=== PATIENT | male | born 2000 | race Caucasian/White ===

== ENCOUNTER 2021-05-16 19:07 | Emergency (ER) | payer OTHER, MEDICAID, SELFPAY ==
[2021-05-16 19:08] VITALS: BP 127/65; PULSE 81; RESP 16; TEMP 36.6; O2SAT 97; BMI 20.7
[2021-05-16 19:10] VITALS: BP 127/65; PULSE 81; RESP 16; TEMP 36.6; O2SAT 97
[2021-05-16] MEDS: 0.9% Normal Saline 1,000 ML 1000 ML IV (19:27)
[2021-05-16 19:33] LABS: Absolute Lymphocyte Count 1.93 X10^3/uL (0.83-4.51); Basophil# 0.03 X10^3/uL; Basophil% 0.4 % (0-1); Eosinophil# 0.07 X10^3/uL; Eosinophils% 0.9 % (0-5); Hematocrit 43.1 % (40-54); Hemoglobin 14.8 g/dL (13.0-16.5); Lymphocyte # 1.93 X10^3/ul (0.83-4.51); Lymphocyte % 25.7 % (19-41); Mean Corp Hgb Conc 34.3 g/dL (32-36); Mean Corpuscular Hgb 29.9 pg (27.0-32.0); Mean Corpuscular Volume 87.1 fL (80-94); Mean Platelet Vol. 9.7 fl (6.2-12.0); Monocyte# 0.44 X10^3/uL; Monocyte% 5.9 % (0-10); NRBC Flagged by Analyzer 0 % (0-5); Neutrophil # 5.02 X10^3/uL (2.7-7.7); Neutrophil % 66.8 % (47-70); Platelet Count 292 K/mm3 (150-450); RBC Distribution Width CV 12.2 % (11.6-14.6); RBC Distribution Width SD 38.5 fl (35.1-43.9); Red Blood Count 4.95 M/mm3 (4.6-6.2); White Blood Count 7.5 K/mm3 (4.4-11.0)
[2021-05-16 19:57] LABS: AST(SGOT) 17 U/L (15-37); Alanine Aminotransfer ALT/SGPT 22 U/L (16-61); Albumin, Serum 4.4 g/dL (3.2-5.0); Alkaline Phosphatase 64 U/L (45-117); Anion Gap 3 (5-15); BUN 10 mg/dL (7-18); BUN/Creat Ratio 10.2 RATIO (10-20); Bilirubin, Direct 0.11 mg/dL (0.00-0.30); Calcium,Total 9.6 mg/dL (8.5-10.1); Chloride 106 mmol/L (98-107); Creatinine, Serum 0.98 mg/dL (0.70-1.30); EST Glomerular Filtration Rate 103 mL/min (>60); Est Glom Filt Rate - Afr Amer 125 mL/min (>60); Estimated Creatinine Clearance 112.79 ml/min; Globulin 3.4 g/dL (2.2-4.2); Glucose 100 mg/dL (74-106); Potassium 4.2 mmol/L (3.5-5.1); Protein, Total 7.8 g/dL (6.4-8.2); Sodium Level 138 mmol/L (136-145)
--- NOTE | 2021-05-16 20:00 | CT_ITS ---
STUDY: CT Abdomen And Pelvis W/O Contrast Injection 05/16/2021 8:33 PM REASON FOR EXAM: Male, 20 years old. Abdominal pain especially after eating. Lost 20lbs in 2 weeks.PAIN back pain, weight loss, hematuria TECHNIQUE: Transaxial images were obtained without oral contrast, and without intravenous contrast. Individualized dose optimization techniques were used for this CT. COMPARISON: None. FINDINGS: The visualized lung bases are unremarkable. The visualized portions of the heart are within normal limits. Normal liver. Normal gallbladder and extrahepatic biliary system. Normal spleen. Normal pancreas. Normal bilateral adrenal glands. No acute findings of the right kidney. No acute findings of the left kidney. Normal visualized stomach. Normal small intestine. Stool throughout the colon. There is non-visualization of the appendix. There are no acute findings of the abdominal aorta. Normal inferior vena cava. Subcentimeter mesenteric lymph nodes. Normal urinary bladder. Normal abdominal wall. Normal osseous structures. IMPRESSION: (NOT LISTED IN ORDER OF SIGNIFICANCE) There are no acute findings. Other findings as above. Electronically Signed: Aries Batres MD at 20:35 EST Reading Location ID and State: [facility] / [place] , Service support , CT/Abdomen/Pelvis without Cont
[2021-05-16 20:07] LABS: Bacteria 0 SEEN /hpf (None Seen); Mucous, Urine 0 SEEN /hpf (<or=2+); Red Blood Cells-Urine 0 SEEN /hpf (0-5); White Blood Cells 0 SEEN /hpf (0-5)
[2021-05-16 20:08] LABS: Color, Urine Yellow (Yellow); Glucose, Dipstick Normal (Normal); Ketone-Dipstick Negative (Negative); Leukocyte Esterase-Dipstick Negative /ul (Negative); Nitrite-Dipstick Negative (Negative); Occult Blood-Urine Negative /ul (Negative); Protein-Dipstick Negative (Negative); Urine Bilirubin Dipstick Negative (Negative); Urine Clarity Clear (Clear); Urine Urobilinogen Normal (Normal)
[2021-05-16 20:18] LABS: Squamous Epithelial Cells - UA 0-5 SEEN /hpf (0-5)
--- NOTE | 2021-05-16 20:18 | EDS_ITS ---
HPI History of Present Illness Chief Complaint: General Illness Detail of Chief Complaint: Weight loss, night sweats, hematuria Informant: patient Onset/Context/Timing Onset: Weeks Current Severity: Mild Maximum Severity: Moderate Narrative Narrative: Patient presents secondary to a 22 pound weight loss in the last 2 to 3 weeks. Has been waking up every night with night sweats. He had 3 separate episodes of noticing blood in his urine. He does complain of back pain. He denies fever or chills. No URI symptoms. No vomiting or diarrhea. He does report increased thirst and increased urination. He does have a family history of diabetes. [facility] Medical History no medical history no medical history Allergy/AdvReac Type Severity Reaction Status Date / Time No Known Allergies Allergy Verified 05/16/21 19:10 Social History Smoking Status: Current every day smoker tobacco type: cigarettes ROS ROS ED Constitutional Constitutional ED: Reports sweats; Denies chills or fever(s) Eyes Eyes: Denies change in vision ENT ENT ED: Denies rhinorrhea or sore throat Cardiovascular Cardiovascular: Denies chest pain or palpitations Respiratory/Chest Respiratory/Chest: Denies cough or dyspnea Gastrointestinal Gastrointestinal: Denies abdominal pain, diarrhea, nausea or vomiting Genitourinary Genitourinary ED: Reports hematuria and urinary frequency; Denies dysuria Musculoskeletal Musculoskeletal: Reports back pain Integumentary Denies rash Neurologic Neurologic: Denies headache(s) or weakness Allergic/Immunologic Allergic/Immunologic ED: Denies urticaria EXAM Physical Exam Const Vital Signs: 05/16/21 19:08 05/16/21 19:10 Temperature 98 F 98 F Temperature Source Temporal Temporal Pulse Rate 81 81 Respiratory Rate 16 16 Blood Pressure 127/65 H 127/65 H Blood Pressure Mean 85 85 Pulse Ox 97 97 Oxygen Delivery Method Room Air Room Air Positive well nourished and well developed General Appearance ED: well developed HEENT Reports dry mucous membranes Mouth ED: Yes dry mucous membranes Mouth: dry mucous membranes Eyes PERRL and EOMs intact bilaterally Neck supple Chest Wall inspection of chest normal and palpation of chest normal Resp normal respiratory effort and clear to auscultation bilaterally Cardio regular rate and regular rhythm GI normal to inspection, nondistended, normoactive bowel sounds and non-tender Palpation: soft Extremity normal to inspection Neuro oriented x3 Sensorium / Orientation: alert Psych mental status grossly normal Skin no rashes or lesions noted MDM MDM MDM Narrative Medical decision making narrative: Lab work and urinalysis ordered. Patient given a liter of IV fluid. Lab Data Attestation: I reviewed the patient's lab results. Labs: Laboratory Results - last 24 hr 05/16/21 05/16/21 05/16/21 19:25 19:25 20:00 WBC 7.5 RBC 4.95 Hgb 14.8 Hct 43.1 MCV 87.1 MCH 29.9 MCHC 34.3 RDW Std Deviation 38.5 RDW Coeff of Magnus 12.2 Plt Count 292 MPV 9.7 Immature Gran % (Auto) 0.300 Neut % (Auto) 66.8 Lymph % (Auto) 25.7 [place] % (Auto) 5.9 Eos % (Auto) 0.9 Baso % (Auto) 0.4 Absolute Neuts (auto) 5.0 Absolute Lymphs (auto) 1.93 Nucleated RBC % 0 Sodium 138 Potassium 4.2 Chloride 106 Carbon Dioxide 29.0 Anion Gap 3 L BUN 10 Creatinine 0.98 Estim Creat Clear Calc 112.79 Est GFR (MDRD) Af Amer 125 Est GFR (MDRD) Non-Af 103 BUN/Creatinine Ratio 10.2 Glucose 100 Calcium 9.6 Total Bilirubin 0.40 Direct Bilirubin 0.11 AST 17 ALT 22 Alkaline Phosphatase 64 Total Protein 7.8 Albumin 4.4 Globulin 3.4 Urine Color Yellow Urine Clarity Clear Urine pH 7.0 Ur Specific [place] 1.010 Urine Protein Negative Urine Glucose (UA) Normal Urine Ketones Negative Urine Occult Blood Negative Urine Nitrite Negative Urine Bilirubin Negative Urine Urobilinogen Normal Ur Leukocyte Esterase Negative Urine RBC 0 SEEN Urine WBC 0 SEEN Ur Squamous Epith Cells 0-5 SEEN Urine Bacteria 0 SEEN Urine Mucus 0 SEEN Radiography Diagnostic Testing: Clinical Impression(s) from Imaging Studies Abdomen/Pelvis CT 05/16/21 20:00 ADDENDUM: 05/16/21 2100 IMPRESSION: (NOT LISTED IN ORDER OF SIGNIFICANCE) There are no acute findings. Treatment and Re-Evaluation Comments:: Lab work is unremarkable with normal glucose at 100. At that time CT flank obtained as patient was having intermittent hematuria, back pain, weight loss. CT scan returns with no acute findings. Test results discussed with patient and family at bedside. Although advised him I do not see any acute abnormalities at this time I do recommend very close follow-up for further evaluation. Patient referred to Dr. Husain, next on the no doc list. He is also given the pamphlet provider directory. Return instructions provided. Addendum: After the patient was discharged I noticed that there was an addendum on the CT reading that was not added until the patient had been discharged. They now, that the patient has large right scrotal hydrocele and moderate left scrotal hydrocele. Testicular ultrasound is recommended. Charge nurse will call patient and ask him to return tomorrow for further imaging and evaluation of this. Discharge Plan Triage Chief Complaint: General Illness ED Provider: Jaimie Melendez Dx/Rx/DC Orders Clinical Impression: Abnormal weight loss, Hematuria Instructions: ED Hematuria Stand Alone Forms: ED Work / School Excuse Primary Care Provider: Care Physician,No Primary Referrals: Jenny Husain MD [STAFF PHYSICIAN] - As soon as possible Care Physician,No Primary [Primary Care Provider] - Activity Restrictions/Additional Instructions: As discussed, your screening labs tonight did not reveal any acute abnormalities . Your urine test does not reveal blood or infection. CT scan of your abdomen and pelvis shows no acute abnormalities. Please follow-up closely with a primary care physician for further testing and evaluation. Disposition Disposition: Home, Self Care Discharge Date/Time: 05/16/21 20:55
--- NOTE | 2021-05-16 21:51 | ED.RN ---
Per Dr Melendez patients CT scan was amended after patient was discharged, Dr Melendez wants patient to come back to ER tomorrow for testicular ultrasound. Patient was contacted via phone and updsated and is agreeable to come back tomorrow for ultrasound.
== END 2021-05-16 20:55 | disposition home or self-care (01) ==
PROVIDERS: Emergency Provider Emergency Medicine; Visit Provider Emergency Medicine
DX: N43.3 Hydrocele, unspecified (principal); R31.9 Hematuria, unspecified; F17.210 Nicotine dependence, cigarettes, uncomplicated; R63.4 Abnormal weight loss; M54.9 Dorsalgia, unspecified
CPT/HCPCS: 74176; 80048; 80076; 81001; 85025; 96360; 99284; J7030; A4216

== ENCOUNTER 2021-05-17 09:39 | Emergency (ER) | payer OTHER, MEDICAID, SELFPAY ==
[2021-05-17 09:40] VITALS: BP 134/66; PULSE 98; RESP 17; TEMP 36.7; O2SAT 99; BMI 21.7
--- NOTE | 2021-05-17 09:53 | US_ITS ---
STUDY: SCROTUM ULTRASOUND REASON FOR EXAM: Male, 20 years old. Swelling, weight loss TECHNIQUE: Ultrasound evaluation of the scrotum was performed with color Doppler and static renae-scale imaging. COMPARISON: None. FINDINGS: RIGHT TESTICLE INTRATESTICULAR: There is a normal size of the right testicle. The right testicle measures 4.4 cm x 3.3 cm x 2.7 cm. There is a homogenous echotexture. There is normal arterial and normal venous vascularity. There is no demonstrated right testicular mass or cyst. EXTRATESTICULAR: The epididymis is not visualized. There is a large hydrocele. There is no demonstrated varicocele. There is no demonstrated extratesticular mass or cyst. LEFT TESTICLE INTRATESTICULAR: There is a normal size of the left testicle. The left testicle measures 3.7 cm x 3.4 cm x 1.9 cm. There is a homogenous echotexture. There is normal arterial and normal venous vascularity. There is no demonstrated left testicular mass or cyst. EXTRATESTICULAR: The epididymis is normal in size. The epididymis head measures 1.1 cm x 1 cm x 0.6 cm. There is normal vascularity of the epididymis. There is no demonstrated epididymal cystic structure. There is no demonstrated hydrocele. There is no demonstrated varicocele. There is no demonstrated extratesticular mass or cyst. US/Testicular with Arterial Flow IMPRESSION: Large right hydrocele. Electronically Signed: Mariano Gardiner MD at 10:54 EST ,
--- NOTE | 2021-05-17 10:01 | EDS_ITS ---
HPI History of Present Illness Chief Complaint: General Illness Informant: patient Narrative Narrative: Patient was called back in today to have ultrasound of the testicle. He came in yesterday due to loss of about 20 pounds in 2 weeks. He states he is eating and drinking normally. If he eats a large amount or eats sugar he gets mildly nauseated but is never vomited. However he states his total volume of food is the same. He does urinate a greater volume in the longer than he used to. He is also had blood in his urine 3 times. But he has no dysuria. Yesterday, CT scan was done along with a very comprehensive laboratory work-up. After the patient left there was a an addendum made regarding a large right scrotal hydrocele and moderate left. He was called back to have an ultrasound. I talked to the patient about this. He states that since he was about 15 years old his left testicle was very small and his right one is huge. However, this has not changed recently. The size is unchanged. He has never had this evaluated. PFSH PFSH Medical History no medical history Allergy/AdvReac Type Severity Reaction Status Date / Time No Known Allergies Allergy Verified 05/17/21 09:40 Social History Smoking Status: Current every day smoker tobacco type: cigarettes ROS ROS ED Constitutional Constitutional ED: Reports weight loss; Denies chills or fever(s) Eyes Eyes: Denies blurry vision ENT ENT ED: Denies rhinorrhea or sore throat Cardiovascular Cardiovascular: Denies chest pain Respiratory/Chest Respiratory/Chest: Denies dyspnea Gastrointestinal Gastrointestinal: Reports nausea; Denies abdominal pain or vomiting Genitourinary Genitourinary ED: Reports hematuria and other Details: See history of present illness. ; Denies dysuria or urinary frequency Musculoskeletal Musculoskeletal: Denies back pain Integumentary Denies rash Neurologic Neurologic: Denies headache(s) Endocrine Endocrinology: Reports polyuria; Denies polydipsia Allergic/Immunologic Allergic/Immunologic ED: Denies urticaria EXAM Physical Exam Const Vital Signs: 05/17/21 09:40 Temperature 98.1 F Temperature Source Oral Pulse Rate 98 Respiratory Rate 17 Blood Pressure 134/66 H Blood Pressure Mean 88 Pulse Ox 99 Oxygen Delivery Method Room Air Positive well nourished and well developed; Negative for unkempt Constitutional Narrative: In addition to the low exam, I do not feel any lymph nodes in the axilla, groin, behind knees or clavicular areas. General Appearance ED: well developed and NAD; Negative for unkempt, cyanotic or diaphoretic HEENT Reports moist mucous membranes Eyes General Eye ED: Negative for pale conjunctiva or scleral icterus Neck no JVD Chest Wall inspection of chest normal Resp normal respiratory effort and clear to auscultation bilaterally Effort and Inspection: Negative for pain with movement Auscultation: Negative for rales, rhonchi or wheezes Cardio regular rate, regular rhythm and no murmurs GI normal to inspection, nondistended, normoactive bowel sounds, non-tender, non- distended and no masses Palpation: soft; Negative for guarding or rebound tenderness present Narrative: I feel no inguinal lymphadenopathy. However, the patient's right testicle is quite large. It is approximately 10 cm in length versus about 4 cm on the left. Volume jasso there is a very significant difference. However there is no marked tenderness. Back/Spine no CVA tenderness Extremity normal to inspection General Extremety ED: Negative for edema or tenderness General Extremity: Negative for edema Neuro Sensorium / Orientation: alert Psych mental status grossly normal Appearance: Negative for unkempt Skin no rashes or lesions noted MDM MDM MDM Narrative Medical decision making narrative: I reviewed work-up from yesterday. We added a ultrasound today. There is a hydrocele but no sign of mass or cancer. I think since he is likely had this hydrocele for 5 years he may want resolution and follow-up with urology as appropriate. I again stressed the importance of following up with primary physician that he was just referred to yesterday. Because we still do not have an explanation for the symptoms that he has been having. Today he actually feels pretty good and feels better than yesterday. I think follow-up as an outpatient is appropriate. Radiography Diagnostic Testing: Clinical Impression(s) from Imaging Studies Testicular Ultrasound 05/17/21 09:53 IMPRESSION: Large right hydrocele. Electronically Signed: Mariano Gardiner MD at 10:54 EST , Discharge Plan Triage Chief Complaint: General Illness ED Provider: Mauricio Cash Dx/Rx/DC Orders Clinical Impression: Hydrocele, right, Abnormal weight loss, Hematuria Instructions: ED Hydrocele, Type Not Specified Primary Care Provider: Care Physician,No Primary Referrals: Darion Mukherjee MD [STAFF PHYSICIAN] - As soon as possible Care Physician,No Primary [Primary Care Provider] - Disposition Disposition: Home, Self Care
== END 2021-05-17 11:46 | disposition home or self-care (01) ==
PROVIDERS: Emergency Provider Emergency Medicine; Visit Provider Emergency Medicine
DX: N43.3 Hydrocele, unspecified (principal); R31.9 Hematuria, unspecified; F17.210 Nicotine dependence, cigarettes, uncomplicated; R63.4 Abnormal weight loss
CPT/HCPCS: 76870; 93976; 99282

== ENCOUNTER 2021-08-03 01:24 | Emergency (ER) | payer OTHER, MEDICAID, SELFPAY ==
[2021-08-03 01:26] VITALS: BP 137/60; PULSE 81; RESP 16; TEMP 37.2; O2SAT 98; BMI 21.9
--- NOTE | 2021-08-03 01:36 | RAD_ITS ---
STUDY: X-RAY - LUMBAR SPINE REASON FOR EXAM: Male, 21 years old. pain TECHNIQUE: view(s) of the lumbar spine were obtained. COMPARISON: None FINDINGS: Normal lumbar lordosis. There is no substantial scoliosis. There is a normal alignment of the vertebrae. Normal vertebral bodies and endplates. Normal disc space heights. The soft tissue structures are unremarkable. RAD/Lumbar Spine 2 or 3 Views IMPRESSION: Normal x-ray examination of the lumbar spine. Electronically Signed: Gianni Nur MD at 2:13 EDT ,
--- NOTE | 2021-08-03 01:38 | ED.VIS.BACK ---
HPI History of Present Illness Chief Complaint: Back Informant: patient Narrative Narrative: 21-year-old male presents to the emergency department back pain. He states that he has been experiencing back pain for approximately 6 months. He moved to the area about a year ago and has not found a primary care doctor yet. He states that he has not had any known back injury. He notes some spasms in his thigh that wake him up at night and also happen at work. He states he has pain in the right low back and now seems to be moving towards the left. He notes pain going into the buttock. He denies any IV drug use or red flag history. He denies any bowel or bladder issues. He denies any weakness or paresthesias in the leg he states that he has a familial history of sciatica PFSH PFSH Medical History no medical history no medical history Home Medications cyclobenzaprine 10 mg PO TID PRN #20 tablet 08/03/21 [Rx Last Taken Unknown] ibuprofen 600 mg PO Q6H PRN PRN #20 tablet 08/03/21 [Rx Last Taken Unknown] Allergy/AdvReac Type Severity Reaction Status Date / Time No Known Allergies Allergy Verified 08/03/21 01:25 Surgical History no surgical history no surgical history Social History (Updated 08/03/21 @ 01:[address] Neptali Mena, DO) Smoking Status: Current every day smoker tobacco type: cigarettes substance use type: does not use ROS ROS ED Constitutional Constitutional ED: Denies chills or weight loss Eyes Eyes: Denies change in vision or diplopia ENT ENT ED: Denies ear pain, rhinorrhea or sore throat Cardiovascular Cardiovascular: Denies chest pain, orthopnea, palpitations or racing heartbeat Respiratory/Chest Respiratory/Chest: Denies cough, dyspnea or orthopnea Gastrointestinal Gastrointestinal: Denies abdominal pain, diarrhea, nausea or vomiting Genitourinary Genitourinary ED: Denies dysuria, hematuria or urinary frequency Musculoskeletal Musculoskeletal: Reports back pain; Denies arthralgias or myalgias Integumentary Denies abscess or rash Neurologic Neurologic: Denies headache(s) or weakness Psychiatric Psychiatric: Denies anxiety, depression, suicidal ideation or suicidal thoughts Endocrine Endocrinology: Denies polydipsia, polyphagia or polyuria Allergic/Immunologic Allergic/Immunologic ED: Denies mouth swelling, tongue swelling or urticaria EXAM Physical Exam Const Vital Signs: 08/03/21 01:26 Temperature 98.9 F Temperature Source Temporal Pulse Rate 81 Respiratory Rate 16 Blood Pressure 137/60 H Blood Pressure Mean 85 Pulse Ox 98 Oxygen Delivery Method Room Air Positive well nourished and well developed General Appearance ED: well developed HEENT Reports normocephalic, head/scalp atraumatic, TM's clear and moist mucous membranes Negative for trauma Tympanic Membrane ED: Yes TM's clear Eyes PERRL and EOMs intact bilaterally Neck no lymphadenopathy, supple and no JVD Resp normal respiratory effort and clear to auscultation bilaterally Cardio regular rate, regular rhythm and no murmurs GI normal to inspection, nondistended, normoactive bowel sounds and non-tender Palpation: soft Back/Spine no CVA tenderness and normal ROM Back/Spine Narrative: There is some paraspinal muscular spasm palpable on the right. There is no midline tenderness. There is no rash or soft tissue texture changes to suggest underlying infection. Neurologically he is intact Extremity normal to inspection General Extremety ED: Negative for edema General Extremity: Negative for edema Neuro oriented x3 and CN's II-XII intact bilaterally Sensorium / Orientation: alert Motor Exam: strength 5/5 throughout Deep Tendon Reflexes: Rt Patellar (L4): 2+, Lt Patellar (L4): 2+, Rt Ankle (S1): 2+ and Lt Ankle (S1): 2+ Deep Tendon Reflexes Back: Rt Patellar (L4): 2+, Lt Patellar (L4): 2+, Rt Ankle (S1): 2+ and Lt Ankle (S1): 2+ Psych mental status grossly normal Mood & Affect: Negative for depressed or tearful Skin no rashes or lesions noted and no wounds MDM MDM MDM Narrative Medical decision making narrative: My interpretation of the plain films of the lumbar spine is no acute process. The intervertebral spaces appear normal. 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 I can call in for some Flexeril due to the tightened muscles on the right. Also think he should probably establish primary care so that he may benefit from a PT eval. Discharge Plan Triage Chief Complaint: Back ED Provider: Neptali Mena Dx/Rx/DC Orders Clinical Impression: Acute lumbar back pain Instructions: ED Sciatica Prescriptions: New cyclobenzaprine [cyclobenzaprine] 10 MG tablet 10 mg PO TID PRN (Reason: Muscle Spasm) Qty: 20 RF: 0 ibuprofen 600 MG tablet 600 mg PO Q6H PRN PRN (Reason: pain) Qty: 20 RF: 0 Primary Care Provider: Care Physician,No Primary Referrals: Regina Spangler MD [STAFF PHYSICIAN] - As soon as possible (for primary care) Care Physician,No Primary [Primary Care Provider] - Disposition Disposition: Home, Self Care
== END 2021-08-03 02:11 | disposition home or self-care (01) ==
PROVIDERS: Emergency Provider Emergency Medicine; Visit Provider Emergency Medicine
DX: M54.50 Low back pain, unspecified (principal); F17.210 Nicotine dependence, cigarettes, uncomplicated
CPT/HCPCS: 72100; 99282

== ENCOUNTER 2021-12-06 19:38 | Emergency (ER) | payer OTHER, MEDICAID, SELFPAY ==
[2021-12-06 19:39] VITALS: BP 130/57; PULSE 85; RESP 16; TEMP 36.2; O2SAT 100; BMI 17.9
--- NOTE | 2021-12-06 21:26 | RAD_ITS ---
STUDY: RIGHT ANKLE X-RAY SERIES OF 2125 HOURS ON 12/06/2021 REASON FOR EXAM: 21-year-old male with injury to an pain of the right ankle. TECHNIQUE: 3 view(s) of the ankle. COMPARISON: None. FINDINGS: No fractures or dislocations. Balanced ankle mortise. No arthritic or degenerative changes. Normal soft tissues. RAD/Ankle min 3 Views IMPRESSION: 1. Normal examination of the right ankle. 2. No fractures or dislocations. 3. Balanced ankle mortise. Electronically Signed: Gianni Connor MD at 21:50 EDT ,
[2021-12-06] MEDS: Diphth,Pertuss(Acell),Tet Vac 0.5 ML Vial IM (21:58)
--- NOTE | 2021-12-06 22:47 | ED.VIS.LOWEX ---
HPI History of Present Illness HPI Narrative: Patient with puncture wounds to bilateral feet and right ankle pain that began today while he was at work. Patient states he accidentally stepped on a board that had nails in it. Patient states that the nails went through his shoe and into his feet bilaterally. Patient states he had to pull the board off of his foot. Patient states he then twisted his right ankle. Patient states he has fractured this ankle in the past. Patient states that his pain is burning. Patient states it is worse with ambulation. Patient admits to some tingling in his right foot. Patient denies any other injuries. Chief Complaint: Lower Extremity Injury Informant: patient Occured/Mechanism Mechanism/Context: Yes puncture wound Onset/Context/Timing Onset: Today Context: Sudden Onset Timing: Continuous Quality of Pain: Burning Location: Bilateral feet and right ankle Worsened by: Ambulation Relieved by: Rest Associated Symptoms Associated Symptoms: Negative for Parasthesia, Weakness or Loss of Funtion Narrative Tetanus Immunization: Unknown PFSH PFSH Medical History no medical history no medical history Home Medications cyclobenzaprine 10 mg tablet 10 mg PO TID PRN Muscle Spasm #20 TABLETS 08/03/21 [Rx Last Taken Unknown] ibuprofen 600 mg tablet 600 mg PO Q6H PRN PRN pain #20 TABLETS 08/03/21 [Rx Last Taken Unknown] ciprofloxacin HCl 500 mg tablet 500 mg PO BID #20 TABLETS 12/06/21 [Rx Last Taken Unknown] Allergy/AdvReac Type Severity Reaction Status Date / Time No Known Allergies Allergy Verified 12/06/21 19:42 Surgical History no surgical history no surgical history Social History Smoking Status: Current every day smoker tobacco type: cigarettes substance use type: does not use ROS ROS ED Constitutional Constitutional ED: Denies chills or fever(s) Eyes Eyes: Denies blurry vision or change in vision ENT ENT ED: Denies rhinorrhea or sore throat Cardiovascular Cardiovascular: Denies chest pain or palpitations Respiratory/Chest Respiratory/Chest: Denies cough or dyspnea Gastrointestinal Gastrointestinal: Denies nausea or vomiting Genitourinary Genitourinary ED: Denies dysuria or hematuria Musculoskeletal Musculoskeletal: Reports back pain; Denies neck pain Integumentary Denies abscess or rash Neurologic Neurologic: Denies headache(s) or weakness Allergic/Immunologic Allergic/Immunologic ED: Denies mouth swelling or urticaria EXAM Physical Exam Const Vital Signs: 12/06/21 19:39 Temperature 97.2 F L Temperature Source Temporal Pulse Rate 85 Respiratory Rate 16 Blood Pressure 130/57 H Blood Pressure Mean 81 Pulse Ox 100 Oxygen Delivery Method Room Air Positive well nourished and well developed General Appearance ED: well developed and NAD HEENT Reports moist mucous membranes Neck full ROM and supple Extremity Extremity Narrative: There are puncture wounds noted over the plantar aspects of the feet bilaterally. There is no active bleeding. There is no erythema or warmth. There is mild tenderness over these puncture wound sites. There is no bony crepitance or step-off. There is tenderness over the right lateral malleolus. There is no obvious deformity. There is good range of motion of the feet and ankles bilaterally. Pedal pulses are equal bilateral. Sensation was intact to light touch in all digits. Capillary refill was less than 2 seconds in all digits. Neuro oriented x3, CN's II-XII intact bilaterally, moves all extremities and no sensory deficits noted Sensorium / Orientation: alert Motor Exam: strength 5/5 throughout Psych mental status grossly normal MDM MDM MDM Narrative Medical decision making narrative: X-rays of the right ankle were obtained. There are 3 views. On my interpretation, there is no acute fracture or dislocation. There is no soft tissue swelling. Radiologist also interpreted the x-rays and agrees. Patient was given a tetanus booster here. Patient was given a dose of Cipro here. Patient was given a prescription for Cipro. Patient was instructed to keep the wounds clean and dry. Patient was instructed to follow-up with his primary care physician or the [facility] in 5 to 7 days. Patient understood and was agreeable with the plan. All questions were answered. Radiography Diagnostic Testing: Clinical Impression(s) from Imaging Studies Ankle X-Ray 12/06/21 21:26 IMPRESSION: 1. Normal examination of the right ankle. 2. No fractures or dislocations. 3. Balanced ankle mortise. Electronically Signed: Gianni Connor MD at 21:50 EDT , Discharge Plan Triage Chief Complaint: Lower Extremity Injury ED Provider: Schwiger,Dalton Dx/Rx/DC Orders Clinical Impression: Puncture wound of foot, left, Puncture wound of foot, right, Right ankle sprain Instructions: ED Puncture Wound (Foot), ED Ankle Sprain (Adult) Prescriptions: New ciprofloxacin HCl [ciprofloxacin HCl] 500 mg tablet 500 mg PO BID Qty: 20 0RF No Action cyclobenzaprine [cyclobenzaprine] 10 MG tablet 10 mg PO TID PRN (Reason: Muscle Spasm) Qty: 20 0RF ibuprofen 600 MG tablet 600 mg PO Q6H PRN PRN (Reason: pain) Qty: 20 0RF Primary Care Provider: Care Physician,No Primary Referrals: Care Physician,No Primary [Primary Care Provider] - [facility] [Non-Staff] - 5-7 Days Disposition Disposition: Home, Self Care
[2021-12-06] MEDS: Ciprofloxacin 500 MG Tablet PO (23:02)
== END 2021-12-06 23:08 | disposition home or self-care (01) ==
PROVIDERS: Emergency Provider Emergency Medicine; Visit Provider Emergency Medicine
DX: S91.332A Puncture wound without foreign body, left foot, initial encounter (principal); S91.331A Puncture wound without foreign body, right foot, initial encounter; S93.401A Sprain of unspecified ligament of right ankle, initial encounter; F17.210 Nicotine dependence, cigarettes, uncomplicated; W45.0XXA Nail entering through skin, initial encounter; Y99.0 Civilian activity done for income or pay; Z23 Encounter for immunization
CPT/HCPCS: 73610; 99283

== ENCOUNTER 2021-12-31 05:52 | Emergency (ER) | payer OTHER, MEDICAID, SELFPAY ==
[2021-12-31 05:52] VITALS: BP 148/50; PULSE 77; RESP 17; TEMP 36.9; O2SAT 99; BMI 21.7
[2021-12-31 05:55] VITALS: BP 148/50; PULSE 88; RESP 17; TEMP 36.8; O2SAT 98
--- NOTE | 2021-12-31 05:59 | EDS_ITS ---
HPI History of Present Illness Chief Complaint: Dental Narrative Narrative: 21-year-old male here for dental pain. The patient states he is got severe left-sided lower tooth pain. States noncompliant with Augmentin. States he woke up just prior to arrival with difficulty breathing. He states infection spreading from the left lower teeth down underneath her jaw. States concerned that his infection is getting worse his breathing prompted his visit today. Denies any shortness of breath currently. No fevers at home. Denies any chest pain. Old chart reviewed: No recent ED visits or hospitalizations PFSH PFS Medical History no medical history Home Medications amoxicillin 875 mg tablet 875 mg BID 12/31/21 [History Last Taken Unknown] Allergy/AdvReac Type Severity Reaction Status Date / Time No Known Allergies Allergy Verified 12/31/21 05:56 Social History Smoking Status: Current every day smoker tobacco type: cigarettes substance use type: does not use ROS ROS ED ROS Narrative Constitutional: Denies fever HEENT: Positive dental pain, submandibular swelling Neck: Denies neck pain Cardiovascular: Denies chest pain, syncope Respiratory: Denies shortness of breath GI: Denies nausea vomiting or abdominal pain : Denies changes in urinary habits Musculoskeletal: Denies muscle or joint pain Neurologic: Denies numbness weakness or loss of sensation Skin denies rash EXAM Physical Exam Narrative Exam Narrative: Nursing triage notes reviewed, Vital signs reviewed Constitutional: please see mdm HENT: MMM, no drooling, noted trismus, noted left-sided submandibular swelling, posterior oropharynx patent Eyes: Pupils equal round and reactive to light, Extraocular muscles intact Neck: No stridor, no JVD, full neck ROM Lungs: Clear to auscultation, No wheezing or rales. No increased work of breathing, no conversational dyspnea, no accessory muscle use, no nasal flaring. No respiratory distress noted Heart: Regular rate and rhythm, No murmurs, No rubs and No gallops, 2+ distal pulses (radial, femoral, posterior tibial) in all extremities Abdomen: Soft, there is no tenderness, rigidity, rebound or guarding, no obvious peritoneal signs, no palpable pulsatile abdominal masses, no auscultated abdominal bruit : No CVAT Extremities: No edema Neuro: No focal neurological deficits, cranial nerves II through XII intact, 5/5 strength in all extremities. Intact sensation to light touch in all extremities, 2+ reflexes bilateral patella dens. Normal gait. No ataxia. Skin: No rash or lesions noted Const Vital Signs: 12/31/21 05:52 12/31/21 05:55 Temperature 98.4 F 98.2 F Temperature Source Temporal Temporal Pulse Rate 77 88 Respiratory Rate 17 17 Blood Pressure 148/50 H 148/50 H Blood Pressure Mean 82 82 Pulse Ox 99 98 Oxygen Delivery Method Room Air Room Air MDM MDM MDM Narrative Medical decision making narrative: 21-year-old male here for dental pain. Patient is currently on Augmentin 875 mg twice daily. The patient was hemodynamically stable, afebrile, nontoxic-a ppearing. There was no respiratory distress, there is no drooling, no need for advanced airway at this time. Exam with left-sided submandibular swelling, mild trismus concerning for Gus's angina. Gave fluids, Toradol, IV Unasyn empirically. Labs without evidence of systemic inflammation. Obtained a CT scan of the neck with contrast to further evaluate for submandibular infection. CT scan showed a very small 8 mm area of likely abscess at the apical portion of the patient's second molar. No evidence of Gus's agina did consult ENT, Dr. Hua recommended steroids and discharged with close dentistry follow-up. I did discuss with the patient discussed admission versus discharge discussed prompt follow-up. Patient was alert and orient x3 and had medical decision- making capacity. He chose to be discharged with close dentistry follow-up. States he has a dental appointment within next 2 days. Patient was instructed to return to the emergency department if you develop trouble swallowing, difficulty opening your jaw, drooling, difficulty breathing difficulty swallowing food. Lab Data Attestation: I reviewed the patient's lab results. Lab results narrative: CBC without leukocytosis, severe anemia, no thrombocytopenia. BMP without evidence of significant electrolyte abnormalities, no anion gap, no acute kidney injury. Labs: Laboratory Results - last 24 hr 12/31/21 12/31/21 06:35 06:35 WBC 9.5 RBC 4.41 L Hgb 13.1 Hct 38.8 L MCV 88.0 MCH 29.7 MCHC 33.8 RDW Std Deviation 38.3 RDW Coeff of Magnus 11.9 Plt Count 273 MPV 9.4 Sodium 140 Potassium 3.6 Chloride 106 Carbon Dioxide 27.0 Anion Gap 7 BUN 12 Creatinine 0.77 Estim Creat Clear Calc 148.70 Est GFR (MDRD) Af Amer 165 Est GFR (MDRD) Non-Af 136 BUN/Creatinine Ratio 15.6 Glucose 107 H Calcium 9.4 Radiography Diagnostic Testing: Clinical Impression(s) from Imaging Studies Soft Tissue Neck CT 12/31/21 06:04 IMPRESSION: 8mm soft tissue abscess medial portion of the left mandible at the level of the first and second molars. Bilateral mandibular molar cavities. Electronically Signed: Shaka Serna MD at 7:19 EDT , Discharge Plan Triage Chief Complaint: Dental ED Provider: Victoriano Smith Dx/Rx/DC Orders Instructions: Dental Abscess Prescriptions: No Action amoxicillin 875 mg tablet 875 mg BID Primary Care Provider: Care Physician,No Primary Referrals: Care Physician,No Primary [Primary Care Provider] - Activity Restrictions/Additional Instructions: Please continue to take your antibiotics as prescribed. Please take Tylenol, ibuprofen as needed for pain control. Please follow-up with dentistry at the next available appointment. Please return to the emergency department if you develop trouble swallowing, drooling, inability to open your mouth, shortness of breath or if you develop nausea and vomiting and unable to take antibiotics by mouth. Disposition Disposition: Home, Self Care
--- NOTE | 2021-12-31 06:04 | CT_ITS ---
EXAM: CT NECK WITH INTRAVENOUS CONTRAST CLINICAL INDICATION: left submandiular swelling r/o ludwigs TECHNIQUE: Helically acquired images were obtained of the neck with intravenous contrast. This CT exam was performed using one or more of the following dose reduction techniques: automated exposure control, adjustment of the mA and/or kV according to patient size, and/or use of iterative reconstruction technique. This report was created using [employer] report generation technology. CONTRAST: IV 75mL Isovue-370 COMPARISON: None. FINDINGS: NASOPHARYNX: Normal. SUPRAHYOID NECK: Normal. Oropharynx, oral cavity, parapharyngeal space and retropharyngeal space are unremarkable. INFRAHYOID NECK: Normal. The larynx, hypopharynx and supraglottis are unremarkable. SUBMANDIBULAR/PAROTID GLANDS: Normal. Glands are normal in size. THYROID: Normal. No enlarged or calcified nodules. DENTAL: Bilateral mandibular dental crown cavities are noted without evidence of periapical resorption. 8 mm soft tissue abscess suggested on the medial portion of the left mandible at the level of the first and second molars. BONES/JOINTS: No acute fracture. SOFT TISSUES: Normal. VASCULATURE: No acute findings. LYMPH NODES: 8mm left lobe along with cervical lymph node consistent with reactive change. LUNG APICES: Unremarkable as visualized. CT/Soft Tissue Neck WITH Contrast IMPRESSION: 8mm soft tissue abscess medial portion of the left mandible at the level of the first and second molars. Bilateral mandibular molar cavities. Electronically Signed: Shaka Serna MD at 7:19 EDT Reading Location ID and State: [facility] / [place] Tel , Service support ,
[2021-12-31] MEDS: Ketorolac 15 MG/ML Vial IV (06:42)
[2021-12-31] MEDS: 0.9% Normal Saline 1,000 ML 999 ML IV (06:43)
[2021-12-31 06:44] LABS: Hematocrit 38.8 % (40-54); Hemoglobin 13.1 g/dL (13.0-16.5); Mean Corp Hgb Conc 33.8 g/dL (32-36); Mean Corpuscular Hgb 29.7 pg (27.0-32.0); Mean Platelet Vol. 9.4 fl (6.2-12.0); Platelet Count 273 K/mm3 (150-450); RBC Distribution Width CV 11.9 % (11.6-14.6); RBC Distribution Width SD 38.3 fl (35.1-43.9); Red Blood Count 4.41 M/mm3 (4.6-6.2); White Blood Count 9.5 K/mm3 (4.4-11.0)
[2021-12-31 06:53] LABS: Anion Gap 7 (5-15); BUN 12 mg/dL (7-18); BUN/Creat Ratio 15.6 RATIO (10-20); Calcium,Total 9.4 mg/dL (8.5-10.1); Chloride 106 mmol/L (98-107); Creatinine, Serum 0.77 mg/dL (0.70-1.30); EST Glomerular Filtration Rate 136 mL/min (>60); Est Glom Filt Rate - Afr Amer 165 mL/min (>60); Glucose 107 mg/dL (74-106); Potassium 3.6 mmol/L (3.5-5.1); Sodium Level 140 mmol/L (136-145)
[2021-12-31] MEDS: dexAMETHasone 10 MG/ML Vial 6 MG IV (07:57)
== END 2021-12-31 08:03 | disposition home or self-care (01) ==
PROVIDERS: Emergency Provider Emergency Medicine; Visit Provider Emergency Medicine
DX: K04.7 Periapical abscess without sinus (principal); K08.89 Other specified disorders of teeth and supporting structures; F17.210 Nicotine dependence, cigarettes, uncomplicated; Z91.14 Patient's other noncompliance with medication regimen
CPT/HCPCS: 70491; 80048; 85027; 96365; 96375; 99282; J7030; Q9967; A4216; J0295

== ENCOUNTER 2022-01-03 00:38 | Emergency (ER) | payer OTHER, MEDICAID, SELFPAY ==
[2022-01-03 00:39] VITALS: BP 152/69; PULSE 80; RESP 18; TEMP 37.2; O2SAT 99; BMI 21.7
--- NOTE | 2022-01-03 00:59 | CT_ITS ---
STUDY: CT SOFT TISSUE NECK WITHOUT CONTRAST REASON FOR EXAM: Male, 21 years old. DENTAL ABSCESS RADIATION DOSAGE (If Supplied By Facility): CTDIvol = ( 13.43 ) mGy, DLP = ( 396.06 ) mGycm TECHNIQUE: The patient was scanned in a multi-detector CT scanner. High resolution transaxial imaging was performed without the administration of intravenous contrast material. Sagittal and coronal images were reconstructed. Individualized dose optimization techniques were used for this CT. COMPARISON: CT neck 12/31/2021 FINDINGS: NASO/RENETTA/HYPOPHARYNX: Normal. EPIGLOTTIS/ARYEPIGLOTTIC FOLDS: Normal. CAROTID SPACE: Normal. BUTCHER MEAT SPACE: Normal. PARAPHARYNGEAL SPACES: Normal. RETROPHARYNGEAL/PREVERTEBRAL SOFT TISSUES: Normal. SALIVARY GLANDS: Normal. LARYNX: Normal. TRACHEA: Normal. THYROID GLAND: Normal. LYMPH NODES: Normal. BONES/SOFT TISSUES: Interval increased size of the complex fluid collection medial to the left mandible near the region of the molars now measuring 17 x 13 x 7 mm. Increased edematous changes in the left sublingual region and subcutaneous fat stranding in the left submandibular and sublingual regions.. OTHER: Bilateral mandibular odontogenic disease, similar compared to the prior.. CT/Soft Tissue Neck WITH Contrast IMPRESSION: 1. Complex fluid collection medial to the left mandible measuring up to 1.7 cm, increased compared to the prior, consistent with abscess. 2. Increased inflammatory changes in the left sublingual and submandibular regions, may represent secondary inflammatory changes or secondary cellulitis. Electronically Signed: Mario Powell MD at 1:46 EDT ,
[2022-01-03] MEDS: Clindamycin 900 MG/50 ML BAG 75 MG IV (01:11)
[2022-01-03] MEDS: 0.9% Normal Saline 1,000 ML 999 ML IV (01:11)
[2022-01-03] MEDS: Ondansetron 4 MG/2 ML Vial IV (01:11)
[2022-01-03] MEDS: Morphine 4 MG/ML Syringe IV ×2 (01:11→05:28)
[2022-01-03 01:14] LABS: Absolute Lymphocyte Count 1.94 X10^3/uL (0.83-4.51); Basophil# 0.03 X10^3/uL; Basophil% 0.3 % (0-1); Eosinophil# 0.05 X10^3/uL; Eosinophils% 0.5 % (0-5); Hematocrit 37.9 % (40-54); Hemoglobin 12.8 g/dL (13.0-16.5); Lymphocyte # 1.94 X10^3/ul (0.83-4.51); Lymphocyte % 17.9 % (19-41); Mean Corp Hgb Conc 33.8 g/dL (32-36); Mean Corpuscular Hgb 29.5 pg (27.0-32.0); Mean Corpuscular Volume 87.3 fL (80-94); Mean Platelet Vol. 8.9 fl (6.2-12.0); Monocyte# 0.75 X10^3/uL; Monocyte% 6.9 % (0-10); NRBC Flagged by Analyzer 0 % (0-5); Neutrophil # 8.01 X10^3/uL (2.7-7.7); Neutrophil % 73.9 % (47-70); Platelet Count 321 K/mm3 (150-450); RBC Distribution Width SD 38.5 fl (35.1-43.9); Red Blood Count 4.34 M/mm3 (4.6-6.2); White Blood Count 10.8 K/mm3 (4.4-11.0)
[2022-01-03 01:27] LABS: Anion Gap 4 (5-15); BUN 8 mg/dL (7-18); BUN/Creat Ratio 11.2 RATIO (10-20); Calcium,Total 9.7 mg/dL (8.5-10.1); Chloride 106 mmol/L (98-107); Creatinine, Serum 0.71 mg/dL (0.70-1.30); EST Glomerular Filtration Rate 149 mL/min (>60); Est Glom Filt Rate - Afr Amer 180 mL/min (>60); Estimated Creatinine Clearance 161.27 ml/min; Glucose 88 mg/dL (74-106); Sodium Level 139 mmol/L (136-145)
[2022-01-03 01:37] LABS: Lactic Acid 0.7 mmol/L (0.4-1.9)
[2022-01-03] MEDS: Lidocaine 2% /Epi 1:100 (20ml) 20 ML VIAL INFILT (04:54)
--- NOTE | 2022-01-03 05:17 | EX.ED.DYSGE1 ---
HPI History of Present Illness Chief Complaint: Dental Narrative Narrative: Patient is a 21-year-old male with no significant past medical history. He was seen previously secondary to pain in the left jaw/face and placed on amoxicillin for presumed dental infection. He then returned and was having worsening of symptoms so he had a blood work and a CT of the neck obtained which revealed a small area of infection but no airway compromise or epiglottitis. He was advised to continue his antibiotics. He states he has been doing that but feels now that the area is even more swollen and that he has had difficulty swallowing and secondary to that comes in for repeat evaluation [facility] Medical History no medical history no medical history Home Medications amoxicillin 875 mg tablet 875 mg BID 12/31/21 [History Last Taken Unknown] clindamycin HCl 300 mg capsule (Cleocin HCl) 300 mg PO 4X/DAY 7 days #28 caps 01/03/22 [Rx Last Taken Unknown] clindamycin HCl 300 mg capsule (Cleocin HCl) 300 mg PO 4X/DAY 7 days #28 caps 01/03/22 [Rx Last Taken Unknown] oxycodone-acetaminophen 5 mg-325 mg tablet (Percocet) 1 tab PO Q6H PRN pain 3 days #12 tabs 01/03/22 [Rx Last Taken Unknown] oxycodone-acetaminophen 5 mg-325 mg tablet (Percocet) 1 tab PO Q6H PRN pain 3 days #12 tabs 01/03/22 [Rx Last Taken Unknown] Allergy/AdvReac Type Severity Reaction Status Date / Time No Known Allergies Allergy Verified 12/31/21 05:56 Social History Smoking Status: Current every day smoker tobacco type: cigarettes substance use type: does not use ROS ROS ED Constitutional Constitutional ED: Denies chills or fever(s) ENT ENT ED: Reports other Details: Positive left facial/neck swelling and pain Positive dysphagia ; Denies sore throat Cardiovascular Cardiovascular: Denies chest pain Respiratory/Chest Respiratory/Chest: Denies cough or dyspnea Gastrointestinal Gastrointestinal: Denies abdominal pain, diarrhea, nausea or vomiting Genitourinary Genitourinary ED: Denies dysuria Musculoskeletal Musculoskeletal: Denies myalgias Integumentary Denies rash Neurologic Neurologic: Denies headache(s) Hematologic/Lymphatic Hematologic/Lymphatic: Denies easy bleeding or easy bruising EXAM Physical Exam Const Vital Signs: 01/03/22 00:39 Temperature 98.9 F Temperature Source Temporal Pulse Rate 80 Respiratory Rate 18 Blood Pressure 152/69 H Blood Pressure Mean 96 Pulse Ox 99 Oxygen Delivery Method Room Air Positive well nourished and well developed General Appearance ED: well developed HEENT Reports moist mucous membranes HEENT Narrative: Patient has dental caries present but I do not notice any obvious swelling along the gingiva or dental abscess present Eyes PERRL and EOMs intact bilaterally Neck supple Neck Narrative: Along the midline of the left mandible there is soft tissue swelling with approximately 2 x 2 centimeter area of induration that is tender to palpation. There is no overlying erythema or warmth no active discharge or lymphangitic streaking. No brawny edema in the submental space to suggest Gus's angina Resp normal respiratory effort and clear to auscultation bilaterally Cardio regular rate and regular rhythm GI normal to inspection, nondistended, normoactive bowel sounds, non-tender, non-distended and no masses Auscultation: normoactive bowel sounds Palpation: soft Extremity normal to inspection Neuro oriented x3 and CN's II-XII intact bilaterally Sensorium / Orientation: alert Psych mental status grossly normal Skin Skin Narrative: Soft tissue changes to the left face/neck as documented above concerning for abscess MDM MDM MDM Narrative Medical decision making narrative: Patient presented to the ER mildly hypertensive but otherwise afebrile. He had no signs of respiratory distress no change in voice and was tolerating his secretions but he did report that he has been having difficulty swallowing. With the increased soft tissue swelling to the left jaw/neck I did elect to repeat laboratory studies and a CT scan. Labs still revealed no clinically significant findings with normal white count and lactic acid value. The CT scan shows no signs of airway compromise esophageal compression or epiglottitis but does note an increased size of a complex fluid collection. At this point he has been failing outpatient therapy with amoxicillin and therefore he was given IV clindamycin. I feel that he will need this area incised and drained for improvement. Therefore this was performed as documented below. Following the incision and drainage patient can be transitioned to clindamycin for improved infection control but as he has no signs of systemic infection is otherwise safe for discharge Patient had the area cleaned with chlorhexidine. It was anesthetized with 8 mL of 1% lidocaine with epinephrine and 2 mL of 0.5% Marcaine. A #11 blade was used to make a 1 cm incision over top the area of induration. A moderate amount of blood and peer material was expressed. Loculations were dissected with a needle allison. The area was copiously irrigated with normal saline. Patient taught the procedure well without complication Lab Data Attestation: I reviewed the patient's lab results. Labs: Laboratory Results - last 24 hr 01/03/22 01/03/22 01/03/22 01:09 01:09 01:09 WBC 10.8 RBC 4.34 L Hgb 12.8 L Hct 37.9 L MCV 87.3 MCH 29.5 MCHC 33.8 RDW Std Deviation 38.5 RDW Coeff of Magnus 12.0 Plt Count 321 MPV 8.9 Immature Gran % (Auto) 0.500 Neut % (Auto) 73.9 H Lymph % (Auto) 17.9 L [place] % (Auto) 6.9 Eos % (Auto) 0.5 Baso % (Auto) 0.3 Absolute Neuts (auto) 8.0 H Absolute Lymphs (auto) 1.94 Nucleated RBC % 0 Sodium 139 Potassium 4.0 Chloride 106 Carbon Dioxide 29.0 Anion Gap 4 L BUN 8 Creatinine 0.71 Estim Creat Clear Calc 161.27 Est GFR (MDRD) Af Amer 180 Est GFR (MDRD) Non-Af 149 BUN/Creatinine Ratio 11.2 Glucose 88 Lactic Acid 0.7 Calcium 9.7 Radiography Diagnostic Testing: Clinical Impression(s) from Imaging Studies Soft Tissue Neck CT 01/03/22 00:59 IMPRESSION: 1. Complex fluid collection medial to the left mandible measuring up to 1.7 cm, increased compared to the prior, consistent with abscess. 2. Increased inflammatory changes in the left sublingual and submandibular regions, may represent secondary inflammatory changes or secondary cellulitis. Electronically Signed: Mario Powell MD at 1:46 EDT , Discharge Plan Triage Chief Complaint: Dental ED Provider: Greg Cherry Dx/Rx/DC Orders Clinical Impression: Abscess of face Prescriptions: New clindamycin HCl [Cleocin HCl] 300 mg capsule 300 mg PO 4X/DAY 7 Days Qty: 28 0RF oxycodone-acetaminophen [Percocet] 5-325 mg tablet 1 tab PO Q6H PRN (Reason: pain) 3 Days Qty: 12 0RF clindamycin HCl [Cleocin HCl] 300 mg capsule 300 mg PO 4X/DAY 7 Days Qty: 28 0RF oxycodone-acetaminophen [Percocet] 5-325 mg tablet 1 tab PO Q6H PRN (Reason: pain) 3 Days Qty: 12 0RF No Action amoxicillin 875 mg tablet 875 mg BID Stand Alone Forms: ED Work / School Excuse Primary Care Provider: Care Physician,No Primary Referrals: Esteban Hua MD [Med Staff - Active Staff] - Care Physician,No Primary [Primary Care Provider] - Activity Restrictions/Additional Instructions: Please stop the amoxicillin and begin taking the clindamycin for improved infection control. Please follow-up with ENT for repeat evaluation and return to the ER should you have any further concerns Disposition Disposition: Home, Self Care Discharge Date/Time: 01/03/22 06:31
[2022-01-03] MEDS: Bupivacaine Mpf 0.5% 30 ML VIAL INFILT (05:30)
== END 2022-01-03 06:31 | disposition home or self-care (01) ==
PROVIDERS: Emergency Provider Emergency Medicine; Visit Provider Emergency Medicine
DX: L02.01 Cutaneous abscess of face (principal); F17.210 Nicotine dependence, cigarettes, uncomplicated; M79.89 Other specified soft tissue disorders
CPT/HCPCS: 10060; 70491; 80048; 83605; 85025; 96361; 96365; 96375; 96376; 99282; J7030; Q9967; A4216; J2405

== ENCOUNTER 2022-03-29 11:32 | Day surgery (SDC) | payer OTHER, MEDICAID, SELFPAY ==
[2022-03-29] VITALS (9 sets, daily range): BP systolic 100–123; BP diastolic 48–78; PULSE 64–95; RESP 16–18; TEMP 36.5–37.5; O2SAT 94–100; BMI 21.7
--- NOTE | 2022-03-29 12:00 | RAD_ITS ---
STUDY: X-RAY - RIGHT ANKLE REASON FOR EXAM: Male, 21 years old. ORIF fracture TECHNIQUE: 10 view(s) of the ankle. COMPARISON: Comparison is made with prior study dated 12/06/2021. FINDINGS: Intraoperative imaging provided for open reduction and internal fixation of the distal fibular fracture. There is good alignment. RAD/Ankle min 3 Views IMPRESSION: Open reduction and internal fixation of the distal fibular fracture. There is good alignment. Electronically Signed: Mariano Gardiner MD at 15:37 EST ,
--- NOTE | 2022-03-29 12:39 | PCM.HP.STD ---
HPI - General HPI Narrative ROCIO TREADWELL, is a 21 M who presents for right ankle ORIF. No changes to h and p. Ankle marked. Questions answered. Narcotic counselling. OK to proceed. OK for block after surgery. Intake Visit Reasons:?RIGHT ANKLE Is patient in pain?: Yes Pain scale (1-10): 8 Allergies No Known Allergies Allergy (Verified 03/23/22 13:07) Medications amoxicillin 875 mg tablet 875 mg BID 12/31/21 [History Confirmed 03/23/22] clindamycin HCl 300 mg capsule (Cleocin HCl) 300 mg PO 4X/DAY 7 days #28 caps 01/03/22 [Rx Confirmed 03/23/22] clindamycin HCl 300 mg capsule (Cleocin HCl) 300 mg PO 4X/DAY 7 days #28 caps 01/03/22 [Rx Confirmed 03/23/22] oxycodone-acetaminophen 5 mg-325 mg tablet (Percocet) 1 tab PO Q6H PRN pain 3 days #12 tabs 01/03/22 [Rx Confirmed 03/23/22] oxycodone-acetaminophen 5 mg-325 mg tablet (Percocet) 1 tab PO Q6H PRN pain 3 days #12 tabs 01/03/22 [Rx Confirmed 03/23/22] PFSH Medical History?(Updated 03/23/22 @ 13:38 by Ayo Patel MD) Closed fracture of right distal fibula Social History? Smoking Status:? Current every day smoker tobacco type: cigarettes substance use type:? does not use HPI RIGHT ANKLE Details: Parts of this documentation were recorded by a scribe, this documentation accurately reflects the service provided and the decisions made by me, Dr. Ayo Patel MD 03/23/22 1305. ROCIO TREADWELL is a 21 year old M here today for right ankle fracture. No prior injuries there. Was having fun new years lesley, seen in [facility]. Location of the pain is laterally, feels like it is moving around, can't feel the toes still. ? 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 Ortho Exam General General: Yes no acute distress Neurologic: Yes alert and Yes oriented x3 Psychologic: Yes reasonable and appropriate Right Foot/Ankle Skin/Wound: Yes CDI, Ecchymosis and Soft Tissue Swelling; No Erythema Exam: present tender to palpate - over fracture site, TTP Lateral Malleolus, TTP Medial Malleolus and TTP Deltoid Ligament; absent peroneal snapping Dorsiflexion 0-20: 0 degrees Plantar Flexion 0-40: 25 degrees Compartments: Compartments: soft Tests: Reynolds Test: 1 and Squeeze Test: 1 Motor: Ankle Dorsiflextion: 4, Ankle Plantar Flexion: 4, Ankle Eversion: 4, Ankle Inversion: 4 and EHL: 4 Sensation: Deep Peroneal Nerve: I, Superficial Peroneal Nerve: I, Tibial Nerve: I, Sural Nerve: I and Saphenous Nerve: I Pulses: Dorsalis Pedis: 2 ANKLE: Cap refill under 3 seconds.? He feels like the toes are little bit numb.? There is moderate soft tissue swelling this is a closed injury.? There is 1 small area in the mid dorsum of his foot that is little bit superficially irritated from the splint to the splint I removed.? No pain up to the knee no pain proximally.? Some swelling but no pain in the foot Achilles tendon is intact. Supplemental Info X-rays reviewed from 6 days prior on a CD outside source from primary hospital.? Shows isolated Cabrales B distal fibula fracture with displacement of the distal fragment 4 mm. Coding Level of Care Code Off vis,new,level 3 Diagnoses Closed fracture of right distal fibula? S82.831A Assessment and Plan Assessment and Plan (1) Closed fracture of right distal fibula: ?Status:?Acute ?Plan: 21-year-old M with right isolated Cabrales B distal fibula fracture displacement over 3 mm generally this is recommended for open reduction internal fixation for anatomic reduction and to prevent long-term risk of osteoarthritis and further instability of the foot and ankle.? We discussed the pros cons risk benefits of nonoperative management high risk of osteoarthritis versus surgery which does have its own set of risks plate hardware irritation plate breakage delayed mal or nonunion risk of infection this may be slightly higher he does not clean his feet very well and he has a very long great toenail for some reason he wears socks 24 hours a day so I have asked him to clean his foot appropriately in the days leading up to surgery rest ice and elevate this for now. Try to get the swelling down the should be reasonable to go ahead with an operation next week and I will have the office look into dates for surgery as soon as possible within the next 5 business days.? Patient understands wishes to go ahead with surgery signed the consent for right ankle open reduction internal fixation possible need for blood products.? Him and his mom understood and no further questions or concerns for now would put him into an orthosis boot surgery I explained the restrictions after, generally 1 to 2 weeks in a splint followed by changing to an orthosis boot immediate range of motion at that time but generally nonweightbearing for 4 to 6 weeks. 3 months to return to normal activities. I filled out an FMLA form also to the effect of continuously off for about 3 months. PFSH Medical History Back pain Closed fracture of right distal fibula Injury of head and neck Smoker Home Medications acetaminophen 500 mg capsule 1,000 mg PO Q6H PRN Pain 03/27/22 [History Last Taken Unknown] ibuprofen 400 mg tablet 400 mg PO Q8H PRN Pain 03/27/22 [History Last Taken Unknown] Allergy/AdvReac Type Severity Reaction Status Date / Time No Known Allergies Allergy Verified 03/27/22 15:40 Social History Smoking Status: Current every day smoker tobacco type: cigarettes substance use type: does not use Vital Signs Vital Signs Vital Signs: 03/29/22 12:12 03/29/22 12:12 Temperature 99 F Temperature Source Temporal Pulse Rate 95 Respiratory Rate 18 Respiratory Pattern Normal Blood Pressure 123/78 H Blood Pressure Mean 93 Blood Pressure Source Monitor Blood Pressure Position Semi-Fowlers Blood Pressure Location Right Arm Pulse Ox 99 Oxygen Delivery Method Room Air Weight Weight: 147 lb Body Mass Index (BMI) 21.7
[2022-03-29] MEDS: Cefazolin 2 GM in 0.9% Normal Saline 100 ML IV (12:59)
--- NOTE | 2022-03-29 14:14 | OP.PCM_ITS ---
Problems Associated Problem List Diagnoses (1) Closed fracture of right distal fibula: Report of Operation Date of Procedure: 03/29/22 Pre-Operative Diagnosis: right ankle fracture Post-Operative Diagnosis: same Surgery/Procedure Performed:: right ankle open reduction internal fixation Surgeon: Ayo Patel Type of Anesthesia: Block,Regional and General Anesthesiologist: Dalton Groves Estimated Blood Loss (mL): 25 Description of Procedure: Patient brought to the operating room theater.? Placed supine on the operating room table.? General anesthesia induced.? 2 g IV Ancef administered prior to the start of the procedure.? Bump under the right hip.? Tourniquet applied right thigh appropriately padded.? SCD on the nonoperative leg.? Lower extremity prepped and draped in the usual sterile fashion with chlorhexidine-based prep solution allowing over 3 minutes drying time prior to draping.? Preoperative timeout performed to confirm the site patient and surgery. Began by elevating the limb exsanguinating the limb a sterile Esmarch and inflating the tourniquet to 250 mmHg.? Made a standard lateral incision centered over the distal aspect of the fibula.? Dissection down through skin and subcutaneous tissue achieved meticulous hemostasis.? Identified the fracture site using small curettes and 15 blade to remove any interposed periosteum and trauma.? Achieved preliminary reduction using direct manipulation of the foot as well as pointed reduction forceps.? Took intraoperative AP and lateral fluoroscopy to confirm proper reduction as well as direct visualization in 3 separate areas.? I then overdrilled the near cortex using a 3.5 mm drill and then drilled the distal cortex with a 2.5 mm drill and inserted a 22 mm long 3.5 mm cortical screw in a lag screw fashion with countersinking of the screw head.? I then remove the clamp.? I selected a Arthrex one third tubular 8 hole plate precontoured this placed on the lateral aspect of the bone.? I secured this proximally with cortical screws and distally with cancellous screws.? 3 screws proximally and 2 screws distally.? ER stress test, cotton test, and AP/oblique/lat showed no widening of the syndesmosis. Final radiographs were taken AP lateral mortise view.? Showed anatomic reduction of the fracture site as well as the mortise being held appropriately.? Tourniquet let down.? Meticulous hemostasis achieved.? Wound thoroughly irrigated.? Subcutaneous tissue closed with 2-0 Vicryl suture and skin with 3-0 Monocryl.? Skin cleaned with wet dry dressing followed application of Steri- Strips Adaptic gauze sterile cast padding and fiberglass posterior splint with the foot in neutral position overlap with Den bandage.? Patient woken up from the general anesthetic transferred off the operating table and taken to postanesthetic care unit in stable condition.? All sponge needle instrument counts were correct no complications. Plan postoperatively - Nonweightbearing follow-up in the office in 2 days time rest ice and elevate the foot as well as a prescription for postoperative pain medication sent in with appropriate narcotic counseling. Complications none Admit VTE Documentation VTE Present on Admission: No VTE Mechan Device Prophylaxis: SCD's VTE Pharm Prophylaxis ordered?: No Reason prophylaxis not ordered:: Treatment Not Indicated Multi Select Codes Musculoskeletal Musculoskeletal CPT Codes: Other Procedure See Report
--- NOTE | 2022-03-29 14:17 | DCINST_ITS ---
Discharge Instructions Diet Discharge Diet: No restrictions Activity Ice area for (Minutes): 10 Weight Bearing Status: No weight bearing Keep extremity elevated above heart level: Operative Extremity Dressing / Incision Call your doctor if your incision/area has: Continuous Slow Oozing, Sudden Increased Bleeding, Increased Pain/ Swelling, Increased Redness, Foul Smelling Discharge and Swelling at the incision site Change Dressing in: leave in place till F/U Follow Up Care Please Follow Up With: Ayo Patel MD When: 2-4 days Test Results: Test results from this visit will be discussed in further detail at your follow- up appointment, if applicable. Discharge Plan Admission Attending Provider: Ayo Patel Primary Care Provider: Care Physician,No Primary Instructions Patient Instructions: Ankle Fracture ORIF Discharge Orders/Prescriptions Prescriptions: New oxycodone-acetaminophen [Percocet] 5-325 mg tablet 1 tab PO Q4H MDD 6 PRN (Reason: pain) 7 Days Qty: 20 0RF No Action ibuprofen 400 mg Tablet 400 mg PO Q8H PRN (Reason: Pain) acetaminophen 500 mg Capsule 1,000 mg PO Q6H PRN (Reason: Pain) Referrals / Follow Up: Ayo Patel MD [Med Staff - Active Staff] - Care Physician,No Primary [Primary Care Provider] - Disposition Disposition (needs filled in before D/C Order can be placed): Home, Self Care
[2022-03-29] MEDS: Lactated Ringers 1,000 ML 15 ML IV (14:24)
== END 2022-03-29 17:14 | disposition home or self-care (01) ==
LOC: SDC 11:36 → AC 11:37
PROVIDERS: Visit Provider Orthopaedic Surgery Sports Medicine
PROC: (CPT 27792; principal; 2022-03-29 12:45)
DX: S82.831A Other fracture of upper and lower end of right fibula, initial encounter for closed fracture (principal); X58.XXXA Exposure to other specified factors, initial encounter; F17.210 Nicotine dependence, cigarettes, uncomplicated
CPT/HCPCS: 27792; 01480; 73610; 76000; C1713; J7120; J2405

== ENCOUNTER 2022-05-23 13:30 | Outpatient (RCR) | payer OTHER, MEDICAID, SELFPAY ==
--- NOTE | 2022-04-05 17:10 | HP.PTEVAL_ITS ---
Patient's Visit Information ROCIO TREADWELL is a 21 year old M referred to Physical Therapy by Dr. Ayo Patel MD with a diagnosis of Fibular Fracture. Date of Evaluation: 04/05/22 Physical Therapist: Kenia Gayle DPT - Visit Plan Frequency: 2x /Week Duration: 6 Weeks Plan: Hold until WB status is full- encouraged to call if questions. Focus on LE and core strength/stabilization, ROM, proprioception and functional mobility. Ankle DF/PF, Inver/Ever, Circles, Alphabet, Gastroc Stretch Towel, toe crunches - Subjective Messing around New Years Esther- fell and broke his ankle- went to the ER- Dr. Patel went in and fixed it- 03/29/22. Right after surgery he was in a splint- then the nerve block wore off- lots of pain- then it went away- then they took off the splint and then put him in the CAM walker- they gave him a medium and large- They gave him two boots- the boot is really uncomfortable. Worst: 5/10 Agg: sitting in one spot, making the wrong turn. He is non weight bearing. Goes back on the 2nd to take the sutures good. Best: 0/10 Eases: prop it up. Describes the pain as sharp pain and throughout the night it is dull and achy. Does have N/T if he is sitting in the same spot too long. Pain is located in the lateral aspect of the ankle- does have pain in the toes. 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 PMHx/Meds: no changes since surgery. - Objective Pt is currently NWB and following precautions. Observation: incision is under water proof bandage-no s/s of infection around the area. Gait: axillary crutches no WB- CAM Walker. ROM: DF: neutral, PF: 30 degrees, Inv: 10 degrees Ever: 5 degrees, Strength: isometric: 4/5. Girth: Figure 8: 55 cm. Flex: HS: moderate, Gastroc: severe, Solues: severe - Balance/Special Test Scores Lower Extremity Functional Score: 19 - Goals Goal 1:: Patient will be I with HEP and progression Goal Time Frame: 4-6 Weeks Goal 2:: Patient will SLS for 30 sec without LOB Goal Time Frame: 4-6 Weeks Goal 3:: Patient will ambulate >300 feet with a normalized gait pattern Goal Time Frame: 4-6 Weeks Goal 4:: Patient will report 80% improvement Goal Time Frame: 4-6 Weeks Goal 5:: Patient will asc/desc 8 stairs recip with no HR Goal Time Frame: 4-6 Weeks - Rehabilitation Potential Physical Therapy Diagnosis: Patient presents with hypomobility- he has decreased wb status due to fibular fracture- he has decreased LE and core strength/sta bilization, flex, ROM, proprioception and muscular endurance leading to abnormal gait and increased pain with ADL's. Rehabilitation Potential: Good - Anticipated Interventions Patient/Client Instruction: Educate patient on: Benefits of Fitness Program Therapeutic Exercise to Include: Strength training, Endurance training, Balance training, Coordination, Agility training, Body mechanics, Postural training, Flexibilty training, Gait and locomotor training, Neuromotor development, Passive ROM, Active ROM, Dynamic Lumbar Stabilization, Scapular Strength/Stabilization TENS: Yes Cryotherapy (ice pack, ice massage): Yes Thermo therapy (hot pack): Yes Ultrasound (thermal/non thermal): No Thank you for the opportunity to evaluate your patient. For Medicare and Medicare HMO plans, please review the plan of care and approve it. It will need to be FAXED BACK to us at [phone] for Medicare purposes. For Medicare only, by signing this I certify the plan of care. Please let me know if there are questions or concerns regarding this plan of care. Physician Signature: Date:
--- NOTE | 2022-05-23 13:48 | HP.PTREVAL ---
Dr. Ayo Patel MD, It has been my pleasure to treat ROCIO TREADWELL over the last 6 visits for Fibular Fracture. Please see the progress note below for an update on the physical therapy plan of care! 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 He has no pain- no soreness after last visit. He has been standing in his work boots and stood 8 hours the other day. Objective/Function: Posture: good throughout. Gait: no deviation noted initially- fatigue had mild decreased stance on LE. HR/TR: able no pain. SLS: 30 sec without loss of balance. ROM: WFL in all planes. Strength: 07/20 Plan Plan: 05/23/22: Hold will d/c if pt does not show need in 4 weeks- return to MD for work release as MD feels appropriate. 05/07/22: 2x a week for 4 weeks- proprioception and functional mobility- gait. Focus on LE and core strength/stabilization, ROM, proprioception and functional mobility Balance/Gait/Functional tests - Balance/Special Test Scores Lower Extremity Functional Score: 74 Goals Goal 1:: Patient will be I with HEP and progression Goal Time Frame: 4-6 Weeks Goal 2:: Patient will SLS for 30 sec without LOB Goal Time Frame: 4-6 Weeks Goal 3:: Patient will ambulate >300 feet with a normalized gait pattern Goal Time Frame: 4-6 Weeks Goal 4:: Patient will report 80% improvement Goal Time Frame: 4-6 Weeks Goal 5:: Patient will asc/desc 8 stairs recip with no HR Goal Time Frame: 4-6 Weeks Anticipated Interventions Patient/Client Instruction: Educate patient on: Benefits of Fitness Program Therapeutic Exercise to Include: Strength training, Endurance training, Balance training, Coordination, Agility training, Body mechanics, Postural training, Flexibilty training, Gait and locomotor training, Neuromotor development, Passive ROM, Active ROM, Dynamic Lumbar Stabilization, Scapular Strength/Stabilization TENS: Yes Cryotherapy (ice pack, ice massage): Yes Thermo therapy (hot pack): Yes Ultrasound (thermal/non thermal): No Please do not hesitate to contact me at [phone] by phone or if you have questions or concerns regarding this new plan of care! Sincerely, Kenia Gayle, DPT
--- NOTE | 2022-10-01 11:46 | HP.PTDCSUM ---
Discharge Summary D/C summary: It has been my pleasure to treat ROCIO TREADWELL referred by Dr. Ayo Patel MD, with the diagnosis of Fibular Fracture for a total of 6 visit(s). Discharge Date: Please see the following information for a summary of their discharge status. 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 He has no pain- no soreness after last visit. He has been standing in his work boots and stood 8 hours the other day. Pain Right Ankle: Pain Intensity (Out of 10): 3 Overall Improvement % Improvement: 90 Objective Objective/Function: Posture: good throughout Gait: no deviation noted initially- fatigue had mild decreased stance on LE HR/TR: able no pain SLS: 30 sec without loss of balance ROM: WFL in all planes Strength: 5/5 Goals Goal 1:: Patient will be I with HEP and progression Goal 2:: Patient will SLS for 30 sec without LOB Goal 3:: Patient will ambulate >300 feet with a normalized gait pattern Goal 4:: Patient will report 80% improvement Goal 5:: Patient will asc/desc 8 stairs recip with no HR Plan Plan: 05/23/22: Hold will d/c if pt does not show need in 4 weeks- return to MD for work release as MD feels appropriate 05/07/22: 2x a week for 4 weeks- proprioception and functional mobility- gait Focus on LE and core strength/stabilization, ROM, proprioception and functional mobility D/C Information d/c sentence: If there are questions or concerns regarding this patient's physical therapy, please feel free to call me at [phone]. Thank you for the referral of this patient. Sincerely, Kenia Gayle, DPT Balance/Gait/Functional tests Balance/Special Test Scores Lower Extremity Functional Score: 74
== END 2022-05-23 19:00 | disposition home or self-care (01) ==
LOC: PT 13:30
PROVIDERS: Referring Provider Orthopaedic Surgery Sports Medicine; Visit Provider Orthopaedic Surgery Sports Medicine
DX: S82.831D Other fracture of upper and lower end of right fibula, subsequent encounter for closed fracture with routine healing (principal)
CPT/HCPCS: 97110; 97161; 97530

== ENCOUNTER 2022-06-27 19:14 | Emergency (ER) | payer MEDICAID, SELFPAY ==
[2022-06-27 19:15] VITALS: BP 118/52; PULSE 77; RESP 18; TEMP 37.4; O2SAT 100; BMI 21.5
--- NOTE | 2022-06-27 19:26 | EX.ED.VIS.UR ---
HPI HPI - URI History of Present Illness Chief Complaint: Cough Detail of Chief Complaint: Productive cough yellow-colored sputum Informant: patient and spouse/S.O. Onset/Context/Timing Onset: Days (10 days) Context: Sudden Onset Timing: Continuous and Waxes and wanes Quality: Cough productive of yellow-colored sputum Location: Respiratory Current Severity: Mild Maximum Severity: Moderate Worsened by: Not Worsened By Swallowing, Eating Solids or Drinking Liquids Relieved by: Not Relieved By Tylenol or NSAIDs Associated Symptoms Associated Symptoms: Positive for Productive Cough; Negative for Nasal Congestion, Headache, Sinus Pressure, Myalgias, Nausea, Vomiting, Diarrhea, Shortness of Breath, Chest Pain, Nonproductive cough or Hemoptysis Narrative Narrative: Patient is a 21-year-old male who smokes 1/2 pack/day and presents with cough that started 10 days ago. He has a cough that is now productive of yellow-colored sputum. He presents from work. He is covered with fine dust particles. He states he does wear a respirator at work. He denies fever or chills. Denies headache, visual, ocular auditory symptoms. Nuys neck pain or neck stiffness. Denies change in voice. Denies sore throat. He denies chest discomfort. He denies nausea, vomiting or diarrhea. He denies myalgias or arthralgias. He denies skin lesion. He has had no ill tach to his knowledge. Prior similar symptoms: No Recent Illness/Hospitalization: No ROS ROS ED Constitutional Constitutional ED: Denies chills, fever(s), subjective, sweats or weight loss Eyes Eyes: Denies blurry vision, change in vision or diplopia ENT ENT ED: Denies ear pain, rhinorrhea or sore throat Cardiovascular Cardiovascular: Denies chest pain, orthopnea, palpitations or paroxysmal nocturnal dyspnea Respiratory/Chest Respiratory/Chest: Reports cough and sputum; Denies dyspnea, dyspnea on exertion, orthopnea or paroxysmal nocturnal dyspnea Gastrointestinal Gastrointestinal: Denies abdominal pain, diarrhea, nausea or vomiting Musculoskeletal Musculoskeletal: Denies arthralgias or myalgias Neurologic Neurologic: Denies headache(s) Hematologic/Lymphatic Hematologic/Lymphatic: Denies easy bleeding or easy bruising PFSH PFSH Medical History Back pain Closed fracture of right distal fibula Injury of head and neck Smoker Home Medications acetaminophen 500 mg capsule 1,000 mg PO Q6H PRN Pain 03/27/22 [History Last Taken Unknown] ibuprofen 400 mg tablet 400 mg PO Q8H PRN Pain 03/27/22 [History Last Taken Unknown] oxycodone-acetaminophen 5 mg-325 mg tablet (Percocet) 1 tab PO Q4H PRN pain 1 week #20 tabs 03/29/22 [Rx Last Taken Unknown] doxycycline monohydrate 100 mg capsule 100 mg PO BID #10 CAPSULES 06/27/22 [Rx Last Taken Unknown] Allergy/AdvReac Type Severity Reaction Status Date / Time No Known Allergies Allergy Verified 06/27/22 19:17 Social History (Updated 06/27/22 @ 19:[address] Edgar Richards MD) household members: significant other Smoking Status: Current every day smoker tobacco type: cigarettes substance use type: does not use EXAM Physical Exam Const Vital Signs: 06/27/22 19:15 Temperature 99.4 F H Temperature Source Temporal Pulse Rate 77 Respiratory Rate 18 Blood Pressure 118/52 L Blood Pressure Mean 74 Pulse Ox 100 Oxygen Delivery Method Room Air Positive well nourished and well developed General Appearance ED: well developed and NAD; Negative for cyanotic, diaphoretic or pallor HEENT Reports moist mucous membranes normocephalic and atraumatic Face and Sinus: Negative for sinus tenderness Throat: posterior oropharynx normal Eyes PERRL and EOMs intact bilaterally General Eye ED: Negative for pale conjunctiva or scleral icterus Neck no lymphadenopathy, supple, no meningeal signs and no JVD Resp normal respiratory effort and clear to auscultation bilaterally Cardio S1 normal heart sound, S2 normal heart sound and no murmurs Rate: regular rate Rhythm: regular rhythm GI non-tender, non-distended and no masses Palpation: soft Extremity normal to inspection and full ROM General Extremety ED: Negative for cyanosis General Extremity: Negative for cyanosis Neuro oriented x3 and CN's II-XII intact bilaterally Sensorium / Orientation: alert Psych mental status grossly normal Skin General Skin Exam: Negative for jaundice or pallor Lesions: no lesions Rashes: no rashes MDM MDM MDM Narrative Medical decision making narrative: Patient's history and physical consistent with bronchitis. Since patient's vital signs are unremarkable he is not febrile or hypoxic and auscultatory exam of the lungs is clear imaging was not obtained. Blood work is not indicated. Since he now has colored sputum will treat with antibiotics. He was informed that since he is a smoker he may have a cough up to 4 weeks. He also was informed that is in his best interest to quit smoking. History & Record Review Additional record(s) reviewed:: Prior outpatient record (For distal fibular fracture) and Prior ED visit (For minor symptoms and dental abscess) Discharge Plan Triage Chief Complaint: Cough ED Provider: Edgar Richards Dx/Rx/DC Orders Clinical Impression: Purulent bronchitis, Tobacco use Prescriptions: New doxycycline monohydrate 100 mg capsule 100 mg PO BID Qty: 10 0RF No Action ibuprofen 400 mg Tablet 400 mg PO Q8H PRN (Reason: Pain) acetaminophen 500 mg Capsule 1,000 mg PO Q6H PRN (Reason: Pain) oxycodone-acetaminophen [Percocet] 5-325 mg tablet 1 tab PO Q4H MDD 6 PRN (Reason: pain) 7 Days Qty: 20 0RF Primary Care Provider: Care Physician,No Primary Referrals: Regina Spangler MD [Med Staff - Customer Service Representative] - 1 Week if not improving Care Physician,No Primary [Primary Care Provider] - Disposition Disposition: Home, Self Care
== END 2022-06-27 19:45 | disposition home or self-care (01) ==
LOC: ED 19:39
PROVIDERS: Emergency Provider Emergency Medicine; Visit Provider Emergency Medicine
DX: J41.1 Mucopurulent chronic bronchitis (principal); F17.210 Nicotine dependence, cigarettes, uncomplicated
CPT/HCPCS: 99282

== ENCOUNTER 2022-07-01 02:52 | Emergency (ER) | payer MEDICAID, SELFPAY ==
[2022-07-01 02:54] VITALS: BP 128/74; PULSE 95; RESP 18; TEMP 36.8; O2SAT 97; BMI 21.7
[2022-07-01 02:56] VITALS: BP 128/74; PULSE 95; RESP 18; TEMP 36.8; O2SAT 997
[2022-07-01 03:26] LABS: Bacteria 0 SEEN /hpf (None Seen); Mucous, Urine 0 SEEN /hpf (<or=2+); Red Blood Cells-Urine 0 SEEN /hpf (0-5); Squamous Epithelial Cells - UA 0 SEEN /hpf (0-5); White Blood Cells 0 SEEN /hpf (0-5)
[2022-07-01 03:32] LABS: Color, Urine Yellow (Yellow); Glucose, Dipstick Normal (Normal); Ketone-Dipstick Negative (Negative); Leukocyte Esterase-Dipstick Negative /ul (Negative); Nitrite-Dipstick Negative (Negative); Occult Blood-Urine Negative /ul (Negative); Protein-Dipstick Negative (Negative); Urine Bilirubin Dipstick Negative (Negative); Urine Clarity Clear (Clear); Urine Urobilinogen Normal (Normal)
--- NOTE | 2022-07-01 04:24 | US_ITS ---
INDICATION: right testicular swelling/pain -- 1year worse in last week EXAMINATION: Ultrasound US Scrotum (Contents) TECHNIQUE: Realtime ultrasound of the testicles was performed with grayscale, Color Doppler and spectral Doppler analysis. COMPARISON: Previous scrotal ultrasound of 05/17/2021. FINDINGS: RIGHT: TESTIS: Right testicle measures 4.9 x 3.2 x 2.5 cm in diameter.. Normal in size and echotexture, without focal lesion. COLOR DOPPLER: Doppler flow is documented within the right testicle. EPIDIDYMIS: Normal in size and echotexture, without focal lesion. [Normal color Doppler flow pattern in the epididymis. HYDROCELE: Very large right hydrocele. VARICOCELE: None. LEFT: TESTIS: Left testicle measures 4.2 x 3.0 x 2.7 cm in diameter.. Normal in size and echotexture, without focal lesion. COLOR DOPPLER: Doppler flow is documented within the left testicle, symmetric to the right. EPIDIDYMIS: Normal in size and echotexture, without focal lesion. [Normal color Doppler flow pattern in the epididymis. HYDROCELE: None. VARICOCELE: None. US/Testicular with Arterial Flow IMPRESSION: Very large hydrocele, greater in size on the previous study of 06/06. No findings of testicular torsion or acute epididymitis. Electronically Signed: Miguel Maier MD at 5:56 EDT ,
[2022-07-01 05:36] VITALS: RESP 16
--- NOTE | 2022-07-01 07:08 | EDS_ITS ---
HPI History of Present Illness Chief Complaint: Male Pain/Injury Informant: patient Narrative Narrative: Patient is a 21-year-old male with history of right hydrocele presenting with worsening right testicular swelling and pain. States has been's worse over the past week. He is a sharp pain in his right testicle when he urinates. Denies any dysuria or hematuria. States about a year ago he was evaluated in the ER for hematuria and testicular swelling and was told he had fluid that likely needed to be drained. He notes he never followed up. He is not currently having any hematuria. Denies any other complaints at this time. Denies any penile discharge or rash. States he wears boxers. PFSH PFSH Medical History Back pain Closed fracture of right distal fibula Injury of head and neck Smoker Allergy/AdvReac Type Severity Reaction Status Date / Time No Known Allergies Allergy Verified 06/27/22 19:17 Social History household members: significant other Smoking Status: Current every day smoker tobacco type: cigarettes substance use type: does not use ROS ROS ED Constitutional Constitutional ED: Denies chills or fever(s) Gastrointestinal Gastrointestinal: Denies abdominal pain, nausea or vomiting Genitourinary Genitourinary ED: Reports other Details: right testicular swelling and pain ; Denies dysuria or hematuria Musculoskeletal Musculoskeletal: Denies arthralgias or myalgias Neurologic Neurologic: Denies headache(s) or weakness EXAM Physical Exam Const Vital Signs: 07/01/22 02:54 07/01/22 02:56 07/01/22 05:36 Temperature 98.2 F 98.2 F Temperature Source Oral Oral Pulse Rate 95 95 Respiratory Rate 18 18 16 Blood Pressure 128/74 H 128/74 H Blood Pressure Mean 92 92 Pulse Ox 97 997 Oxygen Delivery Method Room Air Room Air Positive well nourished and well developed General Appearance ED: well developed and NAD HEENT Reports moist mucous membranes normocephalic and atraumatic Resp normal respiratory effort and clear to auscultation bilaterally Cardio regular rate GI non-tender and non-distended Narrative: Normal circumcised penis. No rash or discharge appreciated. Nontender. Patient has significant right testicular swelling. There is no overlying erythema. No cellulitic changes. Normal cremasteric reflexes bilateral. It is difficult to fully evaluate the right testicle secondary to the associated edema. Extremity normal to inspection General Extremety ED: Negative for edema General Extremity: Negative for edema Psych mental status grossly normal Skin Lesions: no lesions Rashes: no rashes MDM MDM MDM Narrative Medical decision making narrative: Patient evaluated for atraumatic right testicular pain and swelling. Patient does have significant edema. Ultrasound was obtained which shows a large hydrocele with greater size than ultrasound a year ago. Urinalysis is normal. Patient will be given follow-up information with urology. Counseled importance of keeping it. Discussed using NSAIDs, ice and jockstrap/high riding underwear to help with his symptoms in the meantime. He verbalizes agreement understanding with this plan. Discharged home in stable condition. Differential includes hydrocele, testicular torsion and epididymitis Lab Data Labs: Laboratory Results - last 24 hr 07/01/22 03:20 Urine Color Yellow Urine Clarity Clear Urine pH 7.0 Ur Specific [place] 1.010 Urine Protein Negative Urine Glucose (UA) Normal Urine Ketones Negative Urine Occult Blood Negative Urine Nitrite Negative Urine Bilirubin Negative Urine Urobilinogen Normal Ur Leukocyte Esterase Negative Urine RBC 0 SEEN Urine WBC 0 SEEN Ur Squamous Epith Cells 0 SEEN Urine Bacteria 0 SEEN Urine Mucus 0 SEEN Radiography Diagnostic Testing: Clinical Impression(s) from Imaging Studies Testicular Ultrasound 07/01/22 04:24 IMPRESSION: Very large hydrocele, greater in size on the previous study of 06/06. No findings of testicular torsion or acute epididymitis. Electronically Signed: Miguel Maier MD at 5:56 EDT , Discharge Plan Triage Chief Complaint: Male Pain/Injury ED Provider: Chelsi Jonas Dx/Rx/DC Orders Clinical Impression: Hydrocele, right, Pain in right testicle Instructions: ED Hydrocele, Type Not Specified Primary Care Provider: Care Physician,No Primary Referrals: Darion Mukherjee MD [Med Staff - Active Staff] - As soon as possible Care Physician,No Primary [Primary Care Provider] - Activity Restrictions/Additional Instructions: As we discussed use ice, wear high riding/tight fitting underwear and use anti- inflammatory such as ibuprofen to help with your symptoms. Disposition Disposition: Home, Self Care
== END 2022-07-01 07:27 | disposition home or self-care (01) ==
PROVIDERS: Emergency Provider Emergency Medicine; Visit Provider Emergency Medicine
DX: N43.3 Hydrocele, unspecified (principal); F17.210 Nicotine dependence, cigarettes, uncomplicated
CPT/HCPCS: 76870; 81001; 93976; 99282

== ENCOUNTER 2022-10-02 15:59 | Emergency (ER) | payer BC, SELFPAY ==
[2022-10-02 16:00] VITALS: BP 121/50; PULSE 89; RESP 16; TEMP 36.3; O2SAT 100; BMI 21.4
--- NOTE | 2022-10-02 16:15 | EDS_ITS ---
HPI History of Present Illness Chief Complaint: Back Informant: patient Onset/Context/Timing Onset: Yesterday Injury: fall Narrative Narrative: Patient presents with lower back pain. He states he has some chronic back pain but yesterday fell coming down some stairs landing on his back. He now has increased pain to the lower lumbar region and in the right lower lumbar paraspinals. Pain does not radiate to his legs. He reports he will have intermittent paresthesias if he is standing for a long time. That does not seem to be changed today after his fall. Patient states he has taken Tylenol as well as 100 mg of ibuprofen every 8 hours. [facility] Medical History Back pain Closed fracture of right distal fibula Injury of head and neck Smoker Home Medications cyclobenzaprine 10 mg tablet 10 mg PO TID PRN Muscle Spasm #12 TABLETS 10/02/22 [Rx Last Taken Unknown] tramadol 50 mg tablet 50 mg PO Q6H PRN pain #12 tabs 10/02/22 [Rx Last Taken Unknown] Allergy/AdvReac Type Severity Reaction Status Date / Time No Known Allergies Allergy Verified 10/02/22 16:02 Social History household members: significant other Smoking Status: Current every day smoker tobacco type: cigarettes substance use type: does not use ROS ROS ED Constitutional Constitutional ED: Denies chills or fever(s) Eyes Eyes: Denies change in vision ENT ENT ED: Denies rhinorrhea or sore throat Cardiovascular Cardiovascular: Denies chest pain Respiratory/Chest Respiratory/Chest: Denies cough or dyspnea Gastrointestinal Gastrointestinal: Denies abdominal pain, nausea or vomiting Genitourinary Genitourinary ED: Denies dysuria or hematuria Musculoskeletal Musculoskeletal: Reports back pain; Denies extremity pain Integumentary Denies Abrasions or rash Neurologic Neurologic: Reports paresthesias; Denies headache(s) or weakness Psychiatric Psychiatric: Denies anxiety or depression Endocrine Endocrinology: Denies polydipsia or polyuria Allergic/Immunologic Allergic/Immunologic ED: Denies lip swelling or urticaria EXAM Physical Exam Const Vital Signs: 10/02/22 16:00 Temperature 97.4 F L Temperature Source Temporal Pulse Rate 89 Respiratory Rate 16 Blood Pressure 121/50 H Blood Pressure Mean 73 Pulse Ox 100 Oxygen Delivery Method Room Air Positive well nourished and well developed General Appearance ED: well developed HEENT Reports normocephalic and head/scalp atraumatic Eyes PERRL and EOMs intact bilaterally Neck supple Chest Wall inspection of chest normal and palpation of chest normal Resp normal respiratory effort and clear to auscultation bilaterally Cardio regular rate and regular rhythm GI normal to inspection, nondistended, normoactive bowel sounds Palpation: soft Back/Spine no CVA tenderness Back/Spine Narrative: Mild reproducible tenderness in the low lumbar paraspinal muscles to the right. No ecchymosis or hematoma. Extremity normal to inspection Neuro oriented x3 and no sensory deficits noted Sensorium / Orientation: alert Motor Exam: strength 5/5 throughout Psych mental status grossly normal Skin no rashes or lesions noted MDM MDM MDM Narrative Medical decision making narrative: Patient given dose of p.o. tramadol. Lumbar spine x-rays obtained given his trauma. Radiography Diagnostic Testing: Clinical Impression(s) from Imaging Studies Lumbar Spine X-Ray 10/02/22 16:24 IMPRESSION: No evidence of lumbar spinal fracture or spondylolisthesis. Electronically Signed: Aries Batres MD at 16:40 EDT Reading Location ID and State: [facility] / [place] , Service support , Treatment and Re-Evaluation Narrative: Lumbar spine x-rays per my interpretation reveal no evidence of fracture or acute abnormality. Radiology interpretation is reviewed and agrees. Patient will continue Tylenol ibuprofen at home. I will write him a short course of tramadol along with some Flexeril to help with muscle spasm. Return instructions provided. Discharge Plan Triage Chief Complaint: Back ED Provider: Jaimie Melendez Dx/Rx/DC Orders Clinical Impression: Back contusion, Back muscle spasm, Fall Instructions: ED Back Sprain/Strain, ED Back Contusion Prescriptions: New tramadol 50 mg tablet 50 mg PO Q6H PRN (Reason: pain) Qty: 12 0RF cyclobenzaprine 10 mg tablet 10 mg PO TID PRN (Reason: Muscle Spasm) Qty: 12 0RF Primary Care Provider: Care Physician,No Primary Referrals: Dalton Desai MD [Med Staff - [employer]] - As Needed Care Physician,No Primary [Primary Care Provider] - Disposition Disposition: Home, Self Care
[2022-10-02] MEDS: traMADol 50 MG Tablet PO (16:22)
--- NOTE | 2022-10-02 16:24 | RAD_ITS ---
INDICATION: fall EXAMINATION/TECHNIQUE: X-RAY - XR Spine Lumbar 2 or 3 Views COMPARISON: FINDINGS: VERTEBRAE: Preserved vertebral body height. No fracture. No spondylolisthesis. Preservation of the normal lumbar lordosis. No significant facet arthropathy. DISCS: Disc spaces are maintained. INCLUDED ABDOMEN: Included bowel gas pattern is non-obstructive. RAD/Lumbar Spine 2 or 3 Views IMPRESSION: No evidence of lumbar spinal fracture or spondylolisthesis. Electronically Signed: Aries Batres MD at 16:40 EDT ,
[2022-10-02 17:27] VITALS: PULSE 71; RESP 16; O2SAT 98
== END 2022-10-02 17:33 | disposition home or self-care (01) ==
PROVIDERS: Emergency Provider Emergency Medicine; Visit Provider Emergency Medicine
DX: S20.229A Contusion of unspecified back wall of thorax, initial encounter (principal); F17.210 Nicotine dependence, cigarettes, uncomplicated; M62.830 Muscle spasm of back; W10.9XXA Fall (on) (from) unspecified stairs and steps, initial encounter
CPT/HCPCS: 72100; 99283

== ENCOUNTER 2022-10-05 07:39 | Emergency (ER) | payer BC, SELFPAY ==
[2022-10-05 07:40] VITALS: BP 118/68; PULSE 57; RESP 14; TEMP 36.1; O2SAT 100; BMI 20.8
--- NOTE | 2022-10-05 08:06 | ED.VIS.BACK ---
HPI History of Present Illness Chief Complaint: Weakness Narrative Narrative: 22-year-old male presenting with back pain which she states has had for a couple of years which was recently exacerbated by a fall in his basement. He states that he fell onto his back in the basement. Typically he had right-sided paraspinal musculature pain which he states was not that bad before falling. Patient states he is never seen anybody for this until the 18th of this month when he came to the ER after the fall. He is scheduled for appointment in about a month but he is having continued pain. He states that he does have some radiation of the pain into his left greater than right thigh. He states that he is having trouble holding his urine and but has no numbness or tingling to the inguinal region, testicles, penis. He is not have any problems with defecation. He is not having urinary retention. PFSH PFSH Medical History Back pain Closed fracture of right distal fibula Injury of head and neck Smoker Home Medications cyclobenzaprine 10 mg tablet 10 mg PO TID PRN Muscle Spasm #12 TABLETS 10/02/22 [Rx Last Taken Unknown] tramadol 50 mg tablet 50 mg PO Q6H PRN pain #12 tabs 10/02/22 [Rx Last Taken Unknown] prednisone 50 mg tablet 50 mg PO DAILY #4 tabs 10/05/22 [Rx Last Taken Unknown] tizanidine 4 mg tablet 4 mg PO Q8H PRN muscle spasticity #20 tabs 10/05/22 [Rx Last Taken Unknown] Allergy/AdvReac Type Severity Reaction Status Date / Time No Known Allergies Allergy Verified 10/02/22 16:02 Social History household members: significant other Smoking Status: Current every day smoker tobacco type: cigarettes substance use type: does not use ROS ROS ED Constitutional Constitutional ED: Denies chills, fever(s) or sweats Eyes Eyes: Denies blurry vision or change in vision ENT ENT ED: Denies ear pain or sore throat Cardiovascular Cardiovascular: Denies chest pain, palpitations or racing heartbeat Respiratory/Chest Respiratory/Chest: Denies cough, dyspnea or sputum Gastrointestinal Gastrointestinal: Denies abdominal pain, constipation, diarrhea, nausea or vomiting Genitourinary Genitourinary ED: Denies dysuria, hematuria or urinary frequency Musculoskeletal Musculoskeletal: Reports back pain; Denies arthralgias, myalgias or neck pain Integumentary Denies abscess, Abrasions or rash Neurologic Neurologic: Reports paresthesias RLE and LLE; Denies headache(s) or weakness Psychiatric Psychiatric: Denies anxiety, depression, suicidal ideation or suicidal thoughts Endocrine Endocrinology: Denies polydipsia or polyuria EXAM Physical Exam Const Vital Signs: 10/05/22 07:40 Temperature 97 F L Temperature Source Temporal Pulse Rate 57 L Respiratory Rate 14 Blood Pressure 118/68 Blood Pressure Mean 84 Pulse Ox 100 Oxygen Delivery Method Room Air Positive well nourished HEENT Reports moist mucous membranes Eyes PERRL and EOMs intact bilaterally Resp normal respiratory effort and clear to auscultation bilaterally Cardio regular rate and regular rhythm GI normal to inspection, nondistended, normoactive bowel sounds Back/Spine Back/Spine Narrative: Tenderness to palpation left lumbar paraspinal muscular also noted to be somewhat midline at L4-L5 with no deformities or step-off. No ecchymosis, rash. Neuro oriented x3 Neuro Narrative: Motor strength symmetric and 5/5 throughout the bilateral lower extremities. Reporting decreased sensation in the left thigh and the left hamstring. No saddle anesthesia or paresthesia. Normal rectal tone. Psych mental status grossly normal Skin no rashes or lesions noted MDM MDM MDM Narrative Medical decision making narrative: Patient presenting with back pain. He had this for a long time although its been exacerbated by a fall recently. He already had x-rays of this which were negative. He is scheduled for an appointment in a month from now. Differential includes lumbar contusion, lumbar radiculopathy, cauda equina syndrome. he states that he was having trouble holding his urine but does not have any urinary retention. Rectal tone is normal. No saddle anesthesia/paresthesia. I suspect he has a lumbar radiculopathy. I counseled him on follow-up. I will put him on a short burst of prednisone. He will have muscle relaxers refilled. He is to alternate Tylenol and ibuprofen. Impression: 1. Lumbar radiculopathy Discharge Plan Triage Chief Complaint: Weakness ED Provider: Jose Almeida Dx/Rx/DC Orders Instructions: Understanding Lumbar Radiculopathy Prescriptions: New tizanidine 4 mg tablet 4 mg PO Q8H PRN (Reason: muscle spasticity) Qty: 20 0RF prednisone 50 mg tablet 50 mg PO DAILY Qty: 4 0RF No Action tramadol 50 mg tablet 50 mg PO Q6H PRN (Reason: pain) Qty: 12 0RF cyclobenzaprine 10 mg tablet 10 mg PO TID PRN (Reason: Muscle Spasm) Qty: 12 0RF Primary Care Provider: Care Physician,No Primary Referrals: Care Physician,No Primary [Primary Care Provider] - Disposition Disposition: Home, Self Care
[2022-10-05] MEDS: predniSONE 20 MG Tablet 60 MG PO (09:06)
== END 2022-10-05 09:09 | disposition home or self-care (01) ==
PROVIDERS: Emergency Provider Student in an Organized Health Care Education/Training Program; Visit Provider Student in an Organized Health Care Education/Training Program
DX: M54.16 Radiculopathy, lumbar region (principal); F17.210 Nicotine dependence, cigarettes, uncomplicated; Z79.52 Long term (current) use of systemic steroids
CPT/HCPCS: 99281; 99283; A4216

== ENCOUNTER 2023-04-29 15:03 | Emergency (ER) | payer BC, SELFPAY ==
[2023-04-29 15:03] VITALS: BP 123/50; PULSE 74; RESP 16; TEMP 36.2; O2SAT 99; BMI 21.4
--- NOTE | 2023-04-29 15:19 | RAD_ITS ---
STUDY: X-RAY - RIGHT ELBOW REASON FOR EXAM: Male, 22 years old. Pain. No history of injury. TECHNIQUE: 3 view(s) of the elbow. COMPARISON: None. FINDINGS: Normal visualized humerus, radius and ulna. Normal radiocapitellar and ulnotrochlear articulations. The soft tissue structures are unremarkable. RAD/Elbow min 3 Views IMPRESSION: Normal x-ray examination of the elbow. Electronically Signed: Mariano Gardiner MD at 15:37 EST ,
--- NOTE | 2023-04-29 15:20 | EX.ED.UPPERE ---
HPI History of Present Illness Chief Complaint: Upper Extremity Injury Detail of Chief Complaint: Pain to right elbow and numbness and tingling to index and middle finger Informant: patient Narrative Narrative: Patient presents to the emergency department with complaint of pain of the right elbow. Patient also describes some numbness and tingling intermittently to the right index finger and right long finger. 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 3 days ago he was carrying some wood that he dropped which kind of bent his arm backwards and caused pain in his right elbow. Continues to have pain to the right elbow. He is right-hand dominant. PFSH PFSH Medical History Back pain Closed fracture of right distal fibula Hydrocele Injury of head and neck Smoker Home Medications acetaminophen 500 mg tablet (Tylenol Extra Strength) 1,000 mg PO Q4H PRN fever or pain 10/17/22 [History Last Taken Unknown] ibuprofen 200 mg tablet 800 mg PO Q8H PRN fever or pain 10/17/22 [History Last Taken Unknown] naproxen 500 mg tablet 500 mg PO BID #14 tabs 04/29/23 [Rx Last Taken Unknown] Allergy/AdvReac Type Severity Reaction Status Date / Time No Known Allergies Allergy Verified 10/28/22 13:27 Surgical History History of ankle surgery History of hydrocelectomy Social History (System 10/28/22 @ 13:27 by Hanna Desai) household members: significant other Smoking Status: Never smoker alcohol intake: current alcohol intake frequency: a few times a month Alcohol type: beer substance use type: does not use ROS ROS ED Review of Systems ROS Unobtainable: other Constitutional Constitutional ED: Reports lethargy; Denies chills, fever(s), sweats or weight loss Eyes Eyes: Denies blurry vision, change in vision or diplopia ENT ENT ED: Denies rhinorrhea or sore throat Cardiovascular Cardiovascular: Denies chest pain, orthopnea or racing heartbeat Respiratory/Chest Respiratory/Chest: Denies cough, dyspnea, dyspnea on exertion, orthopnea or sputum Gastrointestinal Gastrointestinal: Denies abdominal pain, diarrhea, nausea or vomiting Genitourinary Genitourinary ED: Denies dysuria, hematuria or urinary frequency Musculoskeletal Musculoskeletal: Reports other Details: Right elbow pain ; Denies arthralgias, back pain, myalgias or neck pain Integumentary Denies abscess, Abrasions or rash Neurologic Neurologic: Reports paresthesias RUE; Denies headache(s) or weakness Psychiatric Psychiatric: Denies anxiety, depression or suicidal thoughts Endocrine Endocrinology: Denies polydipsia, polyphagia or polyuria Hematologic/Lymphatic Hematologic/Lymphatic: Denies easy bleeding, easy bruising or lymphadenopathy Allergic/Immunologic Allergic/Immunologic ED: Denies mouth swelling, tongue swelling or urticaria EXAM Physical Exam Const Vital Signs: 04/29/23 15:03 Temperature 97.1 F L Temperature Source Temporal Pulse Rate 74 Respiratory Rate 16 Blood Pressure 123/50 H Blood Pressure Mean 74 Pulse Ox 99 Oxygen Delivery Method Room Air Positive well nourished and well developed General Appearance ED: well developed and NAD HEENT Reports TM's clear and moist mucous membranes normocephalic and atraumatic; Negative for trauma or tenderness Tympanic Membrane ED: Yes TM's clear Eyes PERRL and EOMs intact bilaterally General Eye ED: Negative for pale conjunctiva or scleral icterus Neck no lymphadenopathy, supple and no JVD General: Negative for tenderness Chest Wall inspection of chest normal and palpation of chest normal Chest: Negative for tenderness Resp normal respiratory effort and clear to auscultation bilaterally Effort and Inspection: Negative for respiratory distress or pain with movement Auscultation: Negative for rhonchi, wheezes or diminished lung sounds Cardio regular rate, regular rhythm, S1 normal heart sound, S2 normal heart sound and no murmurs Peripheral Pulses: pulses 2+ throughout GI normal to inspection, nondistended, normoactive bowel sounds, soft to palpation, non-tender, non-distended and no masses Back/Spine no CVA tenderness and no thoracic nor lumbar tenderness Extremity normal to inspection Extremity Narrative: No evidence of trauma noted to the right upper extremity. He has tenderness palpation over the lateral epicondyles on exam. He has good range of motion in flexion extension. He has some pain with pronation supination. 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 Neurovascularly intact. Normal range of motion and normal strength in all digits. General Extremety ED: Negative for edema General Extremity: Negative for edema Neuro oriented x3, CN's II-XII intact bilaterally, no sensory deficits noted and gait normal Sensorium / Orientation: awake, alert, oriented to person, oriented to place and oriented to time Motor Exam: strength 5/5 throughout and strength abnormal Psych mental status grossly normal Skin no rashes or lesions noted and no wounds MDM MDM MDM Narrative Medical decision making narrative: Patient presents with what sounds like intermittent paresthesias to the right hand likely associated to overuse type injury. Distribution of index finger and middle finger. Patient also with injury to the right elbow 3 days ago. X-rays of the right elbow obtained interpreted by myself as no fractures and radiology agreement. Patient will be placed in a wrist splint as well as given a sling for the elbow. He patient will be referred to orthopedics. I suspect likely neuropathy related to overuse type injury possibly median nerve entrapment. The paresthesias only involves the fingers and not the forearm. 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 Recommended naproxen for discomfort and I will write him a prescription for this and referred to orthopedics for follow-up. Discharge Plan Triage Chief Complaint: Upper Extremity Injury ED Provider: Arturo Mattson Dx/Rx/DC Orders Clinical Impression: Arm paresthesia, right, Strain of right elbow Instructions: ED Sprain, Elbow, ED Paraesthesias Prescriptions: New naproxen 500 mg tablet 500 mg PO BID Qty: 14 0RF No Action acetaminophen [Tylenol Extra Strength] 500 mg tablet 1,000 mg PO Q4H PRN (Reason: fever or pain) ibuprofen 200 mg tablet 800 mg PO Q8H PRN (Reason: fever or pain) Primary Care Provider: Care Physician,No Primary Referrals: Alejandro Ramos DO [Med Staff - Active Staff] - 3-5 Days Care Physician,No Primary [Primary Care Provider] - Disposition Disposition: Home, Self Care Discharge Date/Time: 04/29/23 16:04
== END 2023-04-29 16:04 | disposition home or self-care (01) ==
PROVIDERS: Emergency Provider Emergency Medicine; Visit Provider Emergency Medicine
DX: S53.401A Unspecified sprain of right elbow, initial encounter (principal); R20.2 Paresthesia of skin; X50.9XXA Other and unspecified overexertion or strenuous movements or postures, initial encounter; Y99.0 Civilian activity done for income or pay
CPT/HCPCS: 73080; 99283

== ENCOUNTER 2023-07-02 16:44 | Emergency (ER) | payer BC, SELFPAY ==
[2023-07-02 16:45] VITALS: BP 132/58; PULSE 95; RESP 18; TEMP 36.3; O2SAT 99; BMI 22.4
--- NOTE | 2023-07-02 16:50 | RAD_ITS ---
INDICATION: injury EXAMINATION/TECHNIQUE: X-RAY - RIGHT XR Tibia/Fibula 2 Views 4 VIEWS COMPARISON: April 19, 2022 FINDINGS: SOFT TISSUES: Mild diffuse calf and lower leg edema No radiopaque foreign body. BONES/JOINTS: Distal fibular internal fixation plate screw complex without evidence of hardware failure. No acute fracture or subluxation.. Normal alignment. Preservation of the joint space.. No sclerotic or destructive changes observed. RAD/Tibia & Fibula 2 Views IMPRESSION: Mild lower leg edema. No acute osseous finding.. Electronically Signed: Rad Dillard MD at 17:15 EDT ,
--- NOTE | 2023-07-02 16:53 | EDS_ITS ---
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 No falls or head injuries. He will finish work yesterday and today. History of fracture a year ago with hardware to the lateral aspect ankle. Took Tylenol prior to arrival. No foot tenderness. No paresthesias. Prior similar symptoms: Yes PFSH PFSH Medical History Back pain Closed fracture of right distal fibula Hydrocele Injury of head and neck Smoker Home Medications acetaminophen 500 mg tablet (Tylenol Extra Strength) 1,000 mg PO Q4H PRN fever or pain 10/17/22 [History Last Taken Unknown] ibuprofen 200 mg tablet 800 mg PO Q8H PRN fever or pain 10/17/22 [History Last Taken Unknown] naproxen 500 mg tablet 500 mg PO BID #14 tabs 04/29/23 [Rx Last Taken Unknown] azithromycin 250 mg tablet See Rx Instructions PO .COMPLEX #6 tabs 05/22/23 [Rx Last Taken Unknown] pseudoephedrine 60 mg-DM 15 mg-guaifenesin 400 mg tablet (Capmist DM) 1 tab PO Q4-6H PRN cold symptoms #20 tabs 05/22/23 [Rx Last Taken Unknown] Allergy/AdvReac Type Severity Reaction Status Date / Time No Known Allergies Allergy Verified 07/02/23 16:45 Surgical History History of ankle surgery History of hydrocelectomy Social History household members: significant other Smoking Status: Current every day smoker tobacco type: cigarettes alcohol intake: current alcohol intake frequency: a few times a month Alcohol type: beer substance use type: does not use ROS ROS ED Constitutional Constitutional ED: Denies chills, fever(s) or sweats Eyes Eyes: Denies change in vision ENT ENT ED: Denies dysphagia or sore throat Cardiovascular Cardiovascular: Denies chest pain, leg edema, palpitations or racing heartbeat Respiratory/Chest Respiratory/Chest: Denies cough, dyspnea or dyspnea on exertion Gastrointestinal Gastrointestinal: Denies abdominal pain, diarrhea, nausea or vomiting Genitourinary Genitourinary ED: Denies dysuria, hematuria or urinary frequency Musculoskeletal Musculoskeletal: Reports extremity pain and other Details: Right ankle pain ; Denies back pain or neck pain Integumentary Denies rash or wounds Neurologic Neurologic: Denies headache(s), paresthesias or weakness EXAM Physical Exam Const Vital Signs: 07/02/23 16:45 07/02/23 18:14 Temperature 97.3 F L 97.9 F Temperature Source Temporal Pulse Rate 95 90 Respiratory Rate 18 18 Blood Pressure 132/58 H 130/54 H Blood Pressure Mean 82 79 Pulse Ox 99 99 Oxygen Delivery Method Room Air Positive well nourished and well developed General Appearance ED: well developed and NAD HEENT Reports moist mucous membranes normocephalic and atraumatic Eyes PERRL, EOMs intact bilaterally and conjunctivae normal General Eye ED: Yes normal appearance of both eyes Neck no lymphadenopathy and supple General: Negative for tenderness Chest Wall Chest: Negative for tenderness Resp normal respiratory effort and normal air movement Effort and Inspection: symmetric chest movement; Negative for respiratory distress Cardio regular rate, regular rhythm and no murmurs Peripheral Pulses: pulses 2+ throughout GI normal to inspection, nondistended, normoactive bowel sounds and non-tender Palpation: Negative for guarding or rebound tenderness present Back/Spine no CVA tenderness and no thoracic nor lumbar tenderness Extremity Extremity Narrative: Right lower extremity: No proximal fibular head tenderness. There is lateral scar noted distal fibula. No deformities there is tenderness distal third fibula very minimal tenderness of the ATFL there is no swelling. No medial mild tenderness. No midfoot or proximal fifth base tenderness. Skin intact. Neuro vas intact. General Extremety ED: Yes tenderness; Negative for edema General Extremity: Negative for edema Neuro oriented x3 and no sensory deficits noted Sensorium / Orientation: awake and alert Skin no rashes or lesions noted and no wounds MDM MDM MDM Narrative Medical decision making narrative: Interventions / MDM: Differential diagnosis: Sprain Diagnosis considered but do not suspect: Fracture however x-ray negative. N/A My EKG interpretation: N/A Imaging independently reviewed and interpreted by myself: 2 view x-ray tib-fib: No fracture, hardware intact. Also read by radiology. External documents reviewed: N/A Test considered but not ordered:N/A ED course: Patient declines any pain medicines. X-ray tib-fib ordered for bony in hardware evaluation. X-ray negative. Aircast provided. She declines Worker's Compensation paperwork. He will use Tylenol Motrin as needed. Outpatient follow-up given. All questions were answered. Re-evaluation: stable Disposition discussed with patient/family/significant other: Patient Case discussed with consulting clinician: N/A This note was generated with [employer] dictation software. It may contain incorrect words, spelling, and punctuation that were not noted in checking the note before signing. Radiography Diagnostic Testing: Clinical Impression(s) from Imaging Studies Tibia/Fibula X-Ray 07/02/23 16:50 IMPRESSION: Mild lower leg edema. No acute osseous finding.. Electronically Signed: Rad Dillard MD at 17:15 EDT , Discharge Plan Triage Chief Complaint: Lower Extremity Injury ED Provider: Lei Zarate Dx/Rx/DC Orders Clinical Impression: Right ankle sprain, Injury of ankle, right Instructions: ED Ankle Sprain (Adult) Prescriptions: No Action acetaminophen [Tylenol Extra Strength] 500 mg tablet 1,000 mg PO Q4H PRN (Reason: fever or pain) ibuprofen 200 mg tablet 800 mg PO Q8H PRN (Reason: fever or pain) azithromycin 250 mg tablet See Rx Instructions PO .COMPLEX Qty: 6 0RF Rx Instructions: take 500 mg today (day 1), then 250 mg for 4 days (days 2-5) PO Capmist DM 60-15-400 mg tablet 1 tab PO Q4-6H PRN (Reason: cold symptoms) Qty: 20 0RF Rx Instructions: do not exceed 4 doses per 24 hrs naproxen 500 mg tablet 500 mg PO BID Qty: 14 0RF Primary Care Provider: Care Physician,No Primary Referrals: Valarie Orellana [Non-Staff] - 1-2 Weeks Care Physician,No Primary [Primary Care Provider] - Activity Restrictions/Additional Instructions: X-ray right lower leg negative. Hardware intact. Use Aircast for support. Tylenol and ibuprofen every 6 hours as needed. Disposition Disposition: Home, Self Care Discharge Date/Time: 07/02/23 18:18
[2023-07-02 18:14] VITALS: BP 130/54; PULSE 90; RESP 18; TEMP 36.6; O2SAT 99
== END 2023-07-02 18:18 | disposition home or self-care (01) ==
PROVIDERS: Emergency Provider Emergency Medicine; Visit Provider Emergency Medicine
DX: S93.401A Sprain of unspecified ligament of right ankle, initial encounter (principal); F17.210 Nicotine dependence, cigarettes, uncomplicated; Y99.0 Civilian activity done for income or pay; Z87.81 Personal history of (healed) traumatic fracture; X50.9XXA Other and unspecified overexertion or strenuous movements or postures, initial encounter
CPT/HCPCS: 73590; 99283; A4216

== ENCOUNTER 2024-01-14 07:14 | Emergency (ER) | payer SELFPAY ==
[2024-01-14 07:15] VITALS: BP 129/76; PULSE 65; RESP 16; TEMP 36.6; O2SAT 100; BMI 23.3
--- NOTE | 2024-01-14 07:54 | ED.VIS.DENTA ---
HPI History of Present Illness Chief Complaint: Dental Informant: patient Onset/Context/Timing Onset: Today and Yesterday Context: Gradual Onset Timing: Continuous Current Severity: Moderate Maximum Severity: Moderate Associated Symptoms Assocated Symptom - Dental: jaw swelling Narrative Narrative: 23-year-old male atraumatic right lower jaw swelling and pain since yesterday. Able to swallow. No fever. Prior history of dental infection. Prior similar symptoms: Yes Recent Illness/Hospitalization: No PFSH PFSH Medical History Hydrocele Back pain Injury of head and neck Smoker Closed fracture of right distal fibula Home Medications ?Medication ?Instructions ?Recorded ?Last Taken ?Type acetaminophen 500 mg tablet 1,000 mg PO Q4H PRN fever or pain 10/17/22 Unknown History (Tylenol Extra Strength) ibuprofen 200 mg tablet 800 mg PO Q8H PRN fever or pain 10/17/22 Unknown History naproxen 500 mg tablet 500 mg PO BID #14 tabs 04/29/23 Unknown Rx azithromycin 250 mg tablet See Rx Instructions PO .COMPLEX #6 05/22/23 Unknown Rx tabs pseudoephedrine 60 mg-DM 15 1 tab PO Q4-6H PRN cold symptoms 05/22/23 Unknown Rx mg-guaifenesin 400 mg tablet #20 tabs (Capmist DM) penicillin V potassium 500 mg 500 mg PO 4X/DAY #40 tabs 01/14/24 Unknown Rx tablet Allergy/AdvReac Type Severity Reaction Status Date / Time No Known Allergies Allergy Verified 01/14/24 07:17 Surgical History History of ankle surgery History of hydrocelectomy Social History household members: significant other Smoking Status: Current every day smoker tobacco type: cigarettes alcohol intake: current alcohol intake frequency: a few times a month Alcohol type: beer substance use type: does not use ROS ROS ED ROS Narrative Denies recent illness. Constitutional Constitutional ED: Denies chills or fever(s) Eyes Eyes: Denies blurry vision ENT ENT ED: Denies ear pain Cardiovascular Cardiovascular: Denies chest pain Respiratory/Chest Respiratory/Chest: Denies cough or dyspnea Gastrointestinal Gastrointestinal: Denies abdominal pain Genitourinary Genitourinary ED: Denies dysuria or hematuria Musculoskeletal Musculoskeletal: Denies arthralgias Integumentary Denies abscess Neurologic Neurologic: Denies headache(s) Psychiatric Psychiatric: Denies anxiety or depression Endocrine Endocrinology: Denies cold intolerance Hematologic/Lymphatic Hematologic/Lymphatic: Denies easy bleeding Allergic/Immunologic Allergic/Immunologic ED: Denies mouth swelling EXAM Physical Exam Narrative Exam Narrative: 21-year-old male vital signs stable afebrile. Sitting upright in bed. Significant other at bedside. H EENT exam pupils are reactive light. Moist mucous membranes. Posterior pharynx unremarkable. Patient has very poor dentition. Multiple cavities. Eroded teeth. On his right lower jaw has a dental infection with inflammation of the gum consistent with gingivitis. No drainable abscess. No trismus. He is able to open close his mouth. No trouble swallowing or breathing. No Gus's angina. Neck nontender no lymphadenopathy. Lungs clear. Heart regular rhythm rate about 65 no murmur. Abdomen soft nontender. Moving all 4 extremities. Awake and alert. No focal motor deficits. Const Vital Signs: 01/14/24 07:15 Temperature 97.8 F Temperature Source Oral Pulse Rate 65 Respiratory Rate 16 Blood Pressure 129/76 H Blood Pressure Mean 93 Pulse Ox 100 Oxygen Delivery Method Room Air Positive well nourished and well developed; Negative for obese, cachectic, contractures or unkempt General Appearance ED: well developed and NAD; Negative for unkempt, cachectic or contractures Nutritional Appearance: Negative for cachectic or obese HEENT Negative for trauma or tenderness Mouth ED: Yes oral and palatal mucosa abnormal Mouth: oral and palatal mucosa abnormal Teeth and Gingiva: abnormal tooth and associated gingiva, caries, gingiva abnormal, poor dentition and teeth discoloration Throat: posterior oropharynx normal Eyes EOMs intact bilaterally Neck no lymphadenopathy, supple and no JVD Lymph Lymphatic: no lymphadenopathy noted Chest Wall inspection of chest normal and palpation of chest normal Resp normal respiratory effort, no retractions and clear to auscultation bilaterally Cardio regular rate, regular rhythm, S1 normal heart sound, S2 normal heart sound and no murmurs GI normal to inspection, nondistended, normoactive bowel sounds, non-tender, non-distended and no masses Back/Spine no CVA tenderness General Back: Negative for CVA tenderness Extremity normal to inspection and no joint enlargement General Extremety ED: Negative for edema General Extremity: Negative for edema Neuro oriented x3, CN's II-XII intact bilaterally, moves all extremities and no focal motor deficits Sensorium / Orientation: alert, oriented to person, oriented to place and oriented to time; Negative for orientation impaired Motor Exam: strength 5/5 throughout Psych mental status grossly normal Appearance: Negative for unkempt Mood & Affect: Negative for depressed, anxious or tearful Skin no rashes or lesions noted and no wounds MDM MDM MDM Narrative Medical decision making narrative: 21-year-old male with dental infection and right lower jaw swelling. Nothing to drain. He will follow-up with his dentist. Motrin and Tylenol for pain. Penicillin VK 500 4 times daily for 10 days. First dose given in the ER. Discharge Plan Triage Chief Complaint: Dental ED Provider: Ayden Godinez Dx/Rx/DC Orders Clinical Impression: Dental infection, Pain, dental, Gingivitis, Dental cavities Instructions: Dental Abscess, ED Dental Pain Prescriptions: New penicillin V potassium 500 mg tablet 500 mg PO 4X/DAY Qty: 40 0RF No Action acetaminophen [Tylenol Extra Strength] 500 mg tablet 1,000 mg PO Q4H PRN (Reason: fever or pain) ibuprofen 200 mg tablet 800 mg PO Q8H PRN (Reason: fever or pain) azithromycin 250 mg tablet See Rx Instructions PO .COMPLEX Qty: 6 0RF Rx Instructions: take 500 mg today (day 1), then 250 mg for 4 days (days 2-5) PO Capmist DM 60-15-400 mg tablet 1 tab PO Q4-6H PRN (Reason: cold symptoms) Qty: 20 0RF Rx Instructions: do not exceed 4 doses per 24 hrs naproxen 500 mg tablet 500 mg PO BID Qty: 14 0RF Primary Care Provider: Care Physician,No Primary Referrals: Care Physician,No Primary [Primary Care Provider] - Activity Restrictions/Additional Instructions: Take antibiotic penicillin 4 times a day till gone. Motrin and Tylenol for pain. Call your dentist today to get in to be seen this week. Return if worse. Warm salt water rinses in your mouth. Ice to decrease the swelling in your jaw. Print Language: Citizen Of [place] Disposition Disposition: Home, Self Care
[2024-01-14] MEDS: Penicillin Vk 250 MG Tablet 500 MG PO (07:55)
[2024-01-14 07:57] VITALS: BP 134/78; PULSE 64; RESP 18; TEMP 36.4; O2SAT 99
--- OUTSIDE RECORDS SUMMARY | 2024-01-14 08:23 | XMS RPT_ITS | CCD ---
Author Organization [facility] Care Team Providers Care Accounting Machine Servicer Name Role Phone Kye Harris Admitting Unavailable EgKye cárdenas Attending Unavailable Mac, Eleazar Primary Care Provider Mac, Eleazar Primary Care Provider [phone] MAC, ELEAZAR Primary Care Unavailable EGALYKE Attending Unavailabl e MAC, ELEAZAR Primary Care Unavailable MICKY GUERRERO Attending Unavailable None, No PCP Unavailable Unavailable Unavailable Unavailable Aleman II, Dr. Micky Herbert Admitting Unavai lable Aleman II, Dr. Micky Herbert Attending Unavai lable Aleman II, Dr. Micky Herbert Referring Unavai labMD MICKY Waters Attending Unavailabl e LOVE, MD MICKY HERBERT Referring Unavailabl e ALEMANMD MICKY Bower Referring Unavailabl e ALEMANMD MICKY Bower Attending Unavailabl e ALEMAN, MD MICKY HERBERT Referring Unavailabl e ALEMANMD MICKY Bower Attending Unavailabl e SAUL ESQUIVEL DO Admitting Unavailable SAUL ESQUIVEL DO Primary Care Unavailable SAUL ESQUIVEL DO Attending Unavailable JOSSY DAMON DO Admitting Unavailable JOSSY DAMON DO Primary Care Unavailable JOSSY DAMON DO Attending Unavailable IHEONUNEKWU, CHIZITE Admitting Unavailable IHEONUNEKWU, CHIZITE Primary Care Unavailable IHEONUNEKWU, CHIZITE Attending Unavailable KENROY REYES DO Admitting Unavailable CSEKENROY CRUZ DO Primary Care Unavailable KENROY REYES DO Attending Unavailable JOSSY DAMON DO Admitting Unavailable JOSSY DAMON DO Primary Care Unavailable JOSSY DAMON DO Attending Unavailable JOSSY DAMON DO Admitting Unavailable JOSSY DAMON DO Primary Care Unavailable JOSSY DAMON DO Attending Unavailable PHYSICIAN, NONE Primary Care Physician Unavailab le PHYSICIAN, NONE Primary Care Unavailable VALERIA SHAW DO Attending Unavailable Medications Current Medications Medication Drug Class(es) Dates Sig (Normalized) Sig (Original) acetaminophen 300 mg / codeine phosphate 30 mg oral tablet (1 source) Opioid Agonist Start: 05-27-2018 End: 06-01-2018 take 1 tablet by mouth once as needed for pain, then take 2 tablets by mouth every six hours as needed for pain, then take 5 tablets by mouth as needed for pain acetaminophen-cod eine (TYLENOL-CODEINE #3) 300-30 mg per tablet Indications: Ingrown toenail , Left foot pain Take 1 (one) tablet to 2 (two) tablets by mouth every 6 (six) hours as needed for pain (Days supply per fill: 5) . 10 tablet 0 05/27/2018 06/01/2018 Active cloNIDine hydrochloride 0.2 mg oral tablet (2 sources) Central alpha-2 Adrenergic Agonist Start: 01-24-2018 take 1 tablet by mouth at bedtime cloNIDine HCl (CATAPRES) 0.2 MG tablet Indications: Insomnia, unspecified type Take 1 (one) tablet (0.2 mg total) by mouth at bedtime . 90 tablet 0 01/24/2018 Active oseltamivir 75 mg oral capsule (1 source) Neuraminidase Inhibitor Start: 04-27-2019 take 1 capsule by mouth twice daily oseltamivir (TAMIFLU) 75 MG capsule Take 1 (one) capsule (75 mg total) by mouth 2 (two) times a day . 10 capsule 0 04/27/2019 Active Completed/Discontinued Medications Medication Drug Class(es) Dates Sig (Normalized) Sig (Original) cephalexin 500 mg oral capsule (3 sources) Cephalosporin Antibacterial Start: 05-30-2018 End: 04-27-2019 take 1 capsule by mouth four times daily cephALEXin (KEFLEX) 500 MG capsule Take 1 (one) capsule (500 mg total) by mouth 4 (four) times a day . 39 capsule 0 05/30/2018 04/27/2019 Discontinued (Error) Start: 05-30-2018 End: 05-30-2018 cephALEXin (KEFLEX) capsule 500 mg levoFLOXacin 500 mg oral tablet (3 sources) Quinolone Antimicrobial Start: 10-22-2022 take 1 tablet by mouth once daily levoFLOXacin 500 MG Oral Tablet Take 1 tablet daily Quantity: 5 Refills: 0 Ordered: 22-Oct-2022 Micky Aleman II, MD Start : 22-Oct-2022 Active Problems Active Problems Problem Classification Problem Date Documented Date Episodic/Chronic Attention-deficit conduct and disruptive behavior disorders (2 sources) Attention deficit hyperactivity disorder, combined type; Translations: [Attention Deficit Hyperactivity Disorder, Combined Type] Onset: 04-30-2017 04-30-2017 Chronic Influenza (1 source) Influenza; Translations: [Influenza] Episodic Other connective tissue disease (2 sources) Pain in right toe(s); Translations: [Pain in right toe(s)] Onset: 12-06-2022 Episodic Other lower respiratory disease (1 source) Cough; Translations: [Cough, unspecified] Onset: 12-05-2023 Episodic Other lower respiratory disease (1 source) Hemoptysis; Translations: [Hemoptysis] Onset: 12-05-2023 Episodic Other male genital disorders (3 sources) Disorder of male genital organ; Translations: [Hydrocele, unspecified] Episodic Other male genital disorders (2 sources) Hydrocele, unspecified; Translations: [Hydrocele, unspecified] Onset: 10-16-2022 Episodic Skin and subcutaneous tissue infections (2 sources) Cellulitis of toe; Translations: [Cellulitis of right toe] Onset: 12-06-2022 Episodic Substance-related disorders (1 source) Nicotine dependence, unspecified, uncomplicated; Translations: [Nicotine dependence, unspecified, uncomplicated] Onset: 12-06-2022 Chronic Unclassified (2 sources) Drug therapy finding; Translations: [On senior care drug therapy] Onset: 04-30-2017 04-30-2017 Past or Other Problems Problem Classification Problem Date Documented Da te Episodic/Chronic E Codes: Natural/environment (1 source) Overexertion from prolonged static or awkward postures, initial encounter; Translations: [Overexertion from prolonged static or awkward postures, initial encounter] Onset: 02-20-2022 Episodic Other non-traumatic joint disorders (2 sources) Pain in elbow; Translations: [Elbow pain, left] Onset: 02-24-2016 Resolved: 09-06-2017 09-06-2017 Episodic Other non-traumatic joint disorders (2 sources) Pain in right knee; Translations: [Pain in right knee] Onset: 02-20-2022 Episodic Residual codes; unclassified (2 sources) Insomnia; Translations: [Insomnia] Onset: 04-30-2017 04-30-2017 Episodic Sprains and strains (1 source) Strain of other muscle(s) and tendon(s) at lower leg level, right leg, initial encounter; Translations: [Strain of other muscle(s) and tendon(s) at lower leg level, right leg, initial encounter] Onset: 02-20-2022 Episodic Results Test Name Value Interpretation Reference Range Facil ity .Auto Diffon 12-05-2023 Basophil, Absolute 0.1 10 3/mcL Normal 0.0-0.[address] [facility] Comment on above: Performed By: #### TORI SCHERER ANEU, ADIFF #### [place] [address] Lymphocyte, Absolute 2.7 10 3/mcL Normal 0.8-3.9 [facility] Comment on above: Performed By: #### TORI SCHERER ANEU, ADIFF #### [place] [address] Monocyte, Absolute 0.7 10 3/mcL Normal 0.2-1.[address] [facility] Comment on above: Performed By: #### TORI SCHERER ANEU, ADIFF #### [place] [address] .Auto DiffOrdered By: SYSTEM SYSTEM on 12-05-2023 Basophils/100 WBC (Bld) 0.6 % Normal 0.0-2.5 AO Workflow SS Comment on above: Performed By: #### TORI SCHERER ANEU, ADIFF #### [place] [address] Eosinophil, Absolute 0.0 103/mcL Normal 0.0-0.4 [facility] Comment on above: Performed By: #### TORI SCHERER ANEU, ADIFF #### [place] [address] Eosinophils/100 WBC (Bld) 0.5 % Normal 0.0-7.0 [facility] Comment on above: Performed By: #### TORI SCHERER, GUILLE, ADIFF #### [address] [address] Lymphocytes/100 WBC (Bld) 29.9 % Normal 10.0-50.0 [facility]flow [facility] Comment on above: Performed By: #### TORI SCHERER ANEU ADIFF #### [address] [address] Monocytes/100 WBC (Bld) 8.4 % Normal 1.7-13.0 [facility] Comment on above: Performed By: #### TORI SCHERER ANEU ADIFF #### [address] [address] Neutrophils/100 WBC (Bld) 60.6 % Normal 37.0-80.0 [facility] Comment on above: Performed By: #### TORI SCHERER ANEU, ADIFF #### [address] [address] .MDWon 12-05-2023 Monocyte Distribution Width 17.44 Normal 0.00-20.00 [facility] Comment on above: Result Comment: For ED adult patients suspected of sepsis, MDW<=20.0 does not rule out sepsis or risk of sepsis Performed By: #### TORI SCHERER ANEU ADIFF #### [address] [address] .NEUABSon 12-05-2023 Neutrophil, Absolute 5.4 10 3/mcL Normal 2.9-6.2 [facility] Comment on above: Performed By: #### TORI SCHERER ANEU ADIFF #### [address] [address] CBCOrdered By: SYSTEM SYSTEM on 12-05-2023 Erythrocyte distribution width (RBC) [Ratio] 12.8 % Normal 11.5-14.5 AO Workflow [facility] Comment on above: Performed By: #### TORI SCHERER ANEU, ADIFF #### [address] [address] Hematocrit (Bld) [Volume fraction] 40.9 % Low 42.0-52.0 AO Workflow SS Comment on above: Performed By: #### TORI SCHERER ANEU, ADIFF #### [address] [address] MCH (RBC) [Entitic mass] 30.2 pg Normal 27.0-31.2 AO Workflow SS Comment on above: Performed By: #### TORI SCHERER, GUILLE, ADIFF #### [address] [address] MCHC 34.7 G/dL Normal 31.8-35.4 AO Workflow SS Comment on above: Performed By: #### TORI SCHERER, GUILLE, ADIFF #### [address] [address] MCV (RBC) [Entitic vol] 87.0 fL Normal 80.0-94.0 AO Workflow SS Comment on above: Performed By: #### TORI SCHERER, GUILLE, ADIFF #### [address] [address] Platelet mean volume (Bld) [Entitic vol] 7.6 fL Normal 7.4-10.4 AO Workflow SS Comment on above: Performed By: #### TORI SCHERER, GUILLE, ADIFF #### [address] [address] CBCon 12-05-2023 Hgb 14.2 G/dL Normal 14.0-18.0 [facility] Comment on above: Performed By: #### TORI SCHERER, GUILLE, ADIFF #### [address] [address] Platelet 293 10 3/mcL Normal 130-400 [facility] Comment on above: Performed By: #### TORI SCHERER, GUILLE, ADIFF #### [address] [address] RBC 4.70 10 6/mcL Normal 4.04-6.13 [facility] Comment on above: Performed By: #### TORI SCHERER, GUILLE, ADIFF #### [address] [address] WBC 8.9 10 3/mcL Normal 4.6-10.8 [facility] Comment on above: Performed By: #### C KIKE, TORI, GUILLE, ADIFF #### [facility] [address] [place], [place] [address] LABORATORYOrdered By: SYSTEM SYSTEM on 12-05-2023 Basophils (Bld) [#/Vol] 0.1 103/mcL Normal 0.0 - 0.2 10^3/mcL AO Workflow SS Hemoglobin (Bld) [Mass/Vol] 14.2 G/dL Normal 14.0 - 18.0 G/dL AO Workflow SS Lymphocytes (Bld) [#/Vol] 2.7 103/mcL Normal 0.8 - 3.9 10^3/mcL AO Workflow SS Monocyte distribution width Auto (Bld) [Entitic vol] 17.44 1 Normal 0.00 - 20.00 AO Workflow SS Comment on above: Result Comment: For ED adult patients suspected of sepsis, MDW<=20.0 does not rule out sepsis or risk of sepsis Monocytes (Bld) [#/Vol] 0.7 103/mcL Normal 0.2 - 1.0 10^3/mcL AO Workflow SS Neutrophils (Bld) [#/Vol] 5.4 103/mcL Normal 2.9 - 6.2 10^3/mcL AO Workflow SS Platelets (Bld) [#/Vol] 293 103/mcL Normal 130 - 400 10^3/mcL AO Workflow SS RBC (Bld) [#/Vol] 4.70 106/mcL Normal 4.04 - 6.1 3 10^6/mcL AO Workflow SS WBC (Bld) [#/Vol] 8.9 103/mcL Normal 4.6 - 10.8 10^3/mcL AO Workflow SS XR CHEST 2 VIEWSon 4 XR CHEST 2 VIEWS ORIGINAL EXAMINATION: TWO XRAY VIEWS OF THE CHEST12/05/2023 9:10 pm COMPARISON: None. HISTORY: ORDERING SYSTEM PROVIDED HISTORY: Reason for Exam: patient reports bloody sputum for the past week and a half when he smokes and vapes pain FINDINGS: Cardiomediastinal contours are within normal limits. No focal consolidation or pulmonary edema. No pneumothorax or pleural effusion. No acute osseous abnormalities. IMPRESSION: No acute radiographic process. Preliminary Report was Dictated by a Resident I have personally reviewed all of the images of this examination and agree with the resident findings and interpretation. Interpreted by: Jossy Temple MD Preliminary Report By: [place] Electronically signed By Jossy Temple MD Dictated Date: 12/05/2023 9:28:18 PM Prelim Date: 12/05/2023 9:31:33 PM Sign Date: 12/05/2023 9:59:10 PM Ordering Provider: VALERIA SHAW [facility] TOES RTon 12-07-2022 TOES RT [place] [address] Patient: ROCIO TREADWELL Phone#: : 2000 Age: 22 Gender: M Pt. Type: ER Account: [id number] Location: [facility] Ordering: JOSSY DAMON Exam Date: 12/06/2022/21:53 Family Phys: Charge Code: 009423 Physician: [place] Order #: [id number] Dose#: PROCEDURE: X-RAY TOES RT MIN 2 VIEWS COMPARISON: None. INDICATIONS: Great toe. FINDINGS: BONES: Normal. No significant arthropathy or acute abnormality. SOFT TISSUES: Soft tissue swelling is present at the distal phalanx. Lucency is noted beneath the needle raising possibility gas producing organism. EFFUSION: None visible. OTHER: Negative. CONCLUSION: 1. Soft tissue swelling of the great toe is present. Lucency deep to the nail is suspicious for air producing organism. Dictated by: Rachel Cabrera MD on 12/07/2022 at 10:37 Approved by: Rachel Cabrera MD on 12/07/2022 at 10:38 Normal [facility] Office Visit (Urology)on Follow-up visit Diagnoses/Problems Assessed Hydrocele (603.9) (N43.3) Current smoker (305.1) (F17.200) Orders SocHx: Current smoker Tobacco Use Screening; Status:Complete; Done: [id number] Perform:Not Applicable;Ordered; For:SocHx: Current smoker; Ordered By:Devika Robin; Patient Discussion/Summary drain pulled F/U 3 months Chief Complaint Drain tube removal History of Present IllnessPatient is here for drain tube removal. S/P Right Hydrocelectomy on Saturday. He states he is still having a lot of drainage. Review of Systems Constitutional: No fever, No chills. Eye: Negative. Ear/Nose/Mouth/Throat: Negative. Respiratory: No shortness of breath, No cough. Cardiovascular: No chest pain, No peripheral edema. Gastrointestinal: No nausea, Genitourinary: Negative except as documented in history of present illness. Hematology/Lymphatics: Patient denies being on blood thinners.. Endocrine: Negative. Immunologic: Not immunocompromised. Musculoskeletal: Negative Integumentary: Negative. Neurologic: Alert and oriented X4. Psychiatric: Negative. Active Problems Problems Hydrocele (603.9) (N43.3) Surgical History Problems History of Ankle surgery Family History Mother No pertinent family history Father No pertinent family history Social History Problems Current smoker (305.1) (F17.200) Allergies Medication No Known Drug Allergies Recorded By: Devika Robin; 10/08/2022 2:27:23 PM Current Meds Medication NameInstruction levoFLOXacin 500 MG Oral TabletTake 1 tablet daily Vitals Vital Signs Recorded: [id number] 02:33PM Lqjugeuwvsn31 Dmrwlv304 lb Tobacco Usea) Yes Patient encouraged to stop using tobacco productsYes PHQ-2 Patient Declined/Screening not indicatedYes Falls Screening (Age 18+)a) No falls within the last year Physical Exam still with some swelling drainage decreased drain removed Signatures Electronically signed by : Micky Aleman II, MD; Oct 31 2022 2:40PM EST (Author) Normal Given.to Tobacco Screening.on 023 Fall risk assessment a) No falls within the last year [facility] [employer] Work Phone: Tobacco use status CPHS a) Yes [facility] Work Phone: Tobacco Screening. Yes [facility] Phone: Office Visit (Urology)on Follow-up visit Diagnoses/Problems Assessed Hydrocele (603.9) (N43.3) Current smoker (305.1) (F17.200) Patient Discussion/Summary Will plan drain tube Chief Complaint Drain tube removal History of Present IllnessPatient is here for drain tube removal. S/P Right Hydrocelectomy on Saturday. He states he is still having a lot of drainage. Review of Systems Constitutional: No fever, No chills. Eye: Negative. Ear/Nose/Mouth/Throat: Negative. Respiratory: No shortness of breath, No cough. Cardiovascular: No chest pain, No peripheral edema. Gastrointestinal: No nausea, Genitourinary: Negative except as documented in history of present illness. Hematology/Lymphatics: Patient denies being on blood thinners.. Endocrine: Negative. Immunologic: Not immunocompromised. Musculoskeletal: Negative Integumentary: Negative. Neurologic: Alert and oriented X4. Psychiatric: Negative. Active Problems Problems Hydrocele (603.9) (N43.3) Surgical History Problems History of Ankle surgery Family History Mother No pertinent family history Father No pertinent family history Social History Problems Current smoker (305.1) (F17.200) Allergies Medication No Known Drug Allergies Recorded By: Devika Robin; 10/08/2022 2:27:23 PM Current Meds Medication NameInstruction No Reported Medications Vitals Vital Signs Recorded: [id number] 08:08AM Jlqhoewmppu59 Ntrszz995 lb Tobacco Usea) Yes Patient encouraged to stop using tobacco productsYes PHQ-2 Patient Declined/Screening not indicatedYes Falls Screening (Age 18+)a) No falls within the last year Physical Exam still with significant right scrotal swelling Drain tube still draining Levaquin Rx given Signatures Electronically signed by : Micky Aleman II, MD; Oct 22 2022 8:24AM EST (Author) Normal Given.to Tobacco Screening.on 023 Fall risk assessment a) [facility] falls within the last year [facility] DO Work Phone: Tobacco use status CP a) [facility] 232 DO Work Phone: Tobacco Screening. Yes [facility] 232 DO Work Phone: No Panel Informationon 10-16 [facility] Work Phone: Order Reconciliationon 10-16 Order Reconciliation Page 1 Discharge Reconciliation Document Reconciliation Type: Discharge requested on behalf of Micky Aleman (Physician) done by Micky Aleman) Discharge - Reconciliation: 16-Oct-2022 08:56 by: Micky Aleman) Discharge - Reset to Incomplete: 16-Oct-2022 08:56 by: Micky Aleman) Discharge - Reconciliation: 16-Oct-2022 08:57 by: Micky Aleman) Current OrdersDateHOME MEDICATIONS AT DISCHARGE DateReconciliation Comment/ Additional Information HYDROmorphone Injectable (DILAUDID)DOSE = 0.5 mg IntraVenous Push Every 5 Minutes, PRN Pain - Mod (4-6) (PACU)Clinician Notes: Kellie-operative order ONLYMax total of 4 mg regardless of dose. 15-Oct-2022 09:14 HYDROmorphone Injectable is not required Lactated Ringers Infusion IV Bag Volume = 1,000 mL Run at: 100 mL/hr IntraVenous Clinician Notes: Kellie-operative order ONLY 16-Oct-2022 07:00 Lactated Ringers Infusion is not required Naloxone Injectable (NARCAN)DOSE = 0.2 mg IntraVenous Push Once, PRN If patient RR below 10, obtunded or unarousableClinician Notes: DO NOT ADMINISTER UNTIL PHYSiCIAN HAS BEEN NOTIFIED AND ASSESSED PATIENT 16-Oct-2022 07:00 Naloxone Injectable is not required Home Medications Added During Discharge Reconciliation Bactrim DS 800 mg-160 mg oral tablet 160 milligram(s) orally 2 times a day Call Physician For: inability to urinate every 8-12 hours and your bladder becomes too full or painful. Call Physician For: signs and sypmtoms of infection Increased redness or swelling at incision site, increased pain/tenderness at surgical site, increased temperature greater than 100 degress, increasing and/or progressive drainage from surgical site, and/or unusual odor from surgical site. Diet Regular Discharge Discharge Diagnosis< N43.3 Hydrocele Discharge Provider, Micky Aleman Discharge Disposition : .Home Condition at Discharge: Satisfactory Discharge Communication Instructions for Nursing Only: Remove IV prior to discharge from hospital. Do not remove any midline, if present, without an order from the provider. Discharge Instructions - PHR After your discharge from the hospital, two Summary of Care Documents will be available online in your Personal Health Record (PHR). 1.Consolidated-Clinical Document Architecture (C-CDA) Patient Discharge Summary This document is a summary of your hospital stay to be kept for your reference.2.C-CDA Visit Summary This document is a summary of your hospital stay to be shared with your follow-up providers (doctor, still cleaner, physical therapist, etc.). Follow Up with Dr Aleman in 3 Days hydrocodone-acetaminophen 5 mg-325 mg oral tablet 1 tab(s) orally every 8 hours Post Procedure Discharge Criteria Criteria: Easily arousable / responding appropriately; Significant complications are absent; SpO2 = or > 92%, or if SpO2 < 92%, maintains within 2% of baseline; Vital signs +/- 20% of preprocedure status; Ambulates without dizziness / age appropriate activity and ambulatory status returns to pre-procedure baseline. All Active Home Medications at time of Discharge Reconciliation: 16-Oct-2022 08:57 Bactrim DS 800 mg-160 mg oral tablet 160 milligram(s) orally 2 times a day Call Physician For: inability to urinate every 8-12 hours and your bladder becomes too full or painful. Call Physician For: signs and sypmtoms of infection Increased redness or swelling at incision site, increased pain/tenderness at surgical site, increased temperature greater than 100 degress, increasing and/or progressive drainage from surgical site, and/or unusual odor from surgical site. Diet Regular Discharge Discharge Diagnosis< N43.3 Hydrocele Discharge Provider, Micky Aleman Discharge Disposition : .Home Condition at Discharge: Satisfactory Discharge Communication Instructions for Nursing Only: Remove IV prior to discharge from hospital. Do not remove any midline, if present, without an order from the provider. Discharge Instructions - PHR After your discharge from the hospital, two Summary of Care Documents will be available online in your Personal Health Record (PHR). 1.Consolidated-Clinical Document Architecture (C-CDA) Patient Discharge Summary This document is a summary of your hospital stay to be kept for your reference.2.C-CDA Visit Summary This document is a summary of your hospital stay to be shared with your follow-up providers (doctor, still cleaner, physical therapist, etc.). Follow Up with Dr Aleman in 3 Days hydrocodone-acetaminophen 5 mg-325 mg oral tablet 1 tab(s) orally every 8 hours Post Procedure Discharge Criteria Criteria: Easily arousable / responding appropriately; Significant complications are absent; SpO2 = or > 92%, or if SpO2 < 92%, maintains within 2% of baseline; Vital signs +/- 20% of preprocedure status; Ambulates without dizziness / age appropriate activity and ambulatory status returns to pre-procedure baseline. Normal [facility] Surgical Pathology Depar tmenton 10-16-2022 [facility] Surgical Pathology Department Name ROCIO TREADWELL. Pathologist: ROOPA WYATT Date of Procedure: 10/16/2022 Date Received: 10/16/2022 Date Reported 10/29/2022 Submitting Physician: MICKY ALEMAN II, MD Location: [facility] Other External # FINAL DIAGNOSIS A. RIGHT HYDROCELE SAC: -- FIBROMEMBRANOUS TISSUE, CONSISTENT WITH HYDROCELE. Electronically Signed Out By ROOPA WYATT/JANELLE By the signature on this report, the individual or group listed as making the Final Interpretation/Diagnosis certifies that they have reviewed this case. Diagnostic interpretation performed at [facility] [address] [facility]. [place] [id number] Clinical History: Physician Contact Number: [phone] Fixative (A): Formalin Clinical Diagnosis History HYDROCELE REPAIR Specimens Submitted As: A: RIGHT HYDROCELE SAC Gross Description: Received in formalin, labeled with the patient's name and hospital number and right hydrocele sac , is a membraneous segment of tissue measuring 3.5 x 2.4 x 1.7 cm. Areas of induration, nodularity, necrosis are not seen. Areas of hemorrhage are seen measuring up to 1.2 cm in greatest dimension. Technical Operations Vice President sections are submitted in one cassette. [facility]/10/19/2022 [facility] Department of Pathology [address] [place] [address] Normal [facility] Comment on above: Performed By: #### U [facility] #### [facility] Surgical Pathology Department [address] [place] [address] Patient Profile - Preop v3on 10-15-2022 Patient Profile - Preop v3 Patient Profile - Preop: Initial Info: Patient DemographicsName: ROCIO TREADWELL Date: 2000 Address: [address] [place] [address] Primary Phone [phone] Call Attemptedattempt 1 Instructions Givenappropriate clothing, bring responsible adult as the patient transportation driver (procedure may be cancelled if no patient transportation driver), center location, insurance information Prep Instructions Reviewedyes Instructed to Have No Fluids Aftermidnight How to be AddressedTrevor Spoken Language PreferredEnglish Source of Informationpatient Stated Reason for AdmissionRight hydrocelectomy Primary Contact Name and [id number] Medications Brought to Hospitalno General Health: Weight in kg64.4 kilogram(s) Weight in qfj549.9 pound(s) Weight Methodactual (measured) Scale Typestanding Height in feet5 feet Height in hnybaa75 inch(es) Height in cm177.8 centimeter(s) Height Methodstated BMI (kg/m2)20.371 square meter Patient or Family Member Reaction to Anesthesiano previous reaction; no previous family member reaction Blood Avoidance/Restrictionsnon e Previous Transfusion Reactionnot applicable Health Mgmt: Symptoms/Conditions Managed at [facility] Barriers to Managing Healthnone Relationship/Environ: Lives Withspouse Living Arrangementscondominium Resource/Environmental Concernsnone Anticipated [place] [employer] [facility] Anticipated at Transitionnone Tobacco Use: Tobacco Useyes Tobacco Typecigarettes Last Tobacco [id number] Number of Packs per Day0.5 Number of yrs2 Pack yrs1 Pre-op Checklist: Arrival [id number] Arrival Time07:45 Procedure TypeRight hydrocelectomy NPOyes Last Food [id number] 18:00 Last Clear Fluid [id number]-Rkk-6560 23:30 ID Band On Patientpatient ID (name) Consent Signedyes H&P Completeyes Anesthesia Assessment Completedyes EKG Performednot ordered Chest X-Ray Performednot ordered Preop Antibioticsnot ordered Chlorhexadine Bath Givennot applicable Nasal Antiseptic Appliednot applicable Soap and Water Bath the Night Before Surgerynot applicable Hair Washed with Shampoonot applicable Bowel Prepno Surgical Site Infection Preventionyes Pain Scales and Managementyes Additional Information: Information Review: Allergies, Home Meds and Significant Events have been Reviewed and Verified with Patient/Familyyes Allergy, Intolerance, Adverse Event: Allergies: No Known Allergies: Active Problem List: Surg History: Ankle fracture: Catalog Name: Other fracture of unspecified lower leg, initial encounter for closed fracture Electronic Signatures: Latoya Raya) (Signed 16-Oct-2022 07:51) Authored: Initial Info, General Health, Health Mgmt, Relationship/Environ, Tobacco Use, Pre-op Checklist, Additional Information Mary Shah (RN) (Signed 15-Oct-2022 10:43) Authored: Initial Info, General Health, Tobacco Use, Additional Information Last Updated: 16-Oct-2022 07:51 by Latoya Raya) [facility] Office Visit (Urology)on Follow-up visit Diagnoses/Problems Assessed Current smoker (305.1) (F17.200) Patient Discussion/Summary U/S reveiwed Pros/cons of Hydrocele repair Discussed Will Plan surgical correction in OR Observe Mild LUTS F/U RIGHT HYDROCELE REPAIR Chief Complaint hydrocele History of Present IllnessPatient is here to establish for right hydrocele. He states noticed this awhile ago. He has a lot of discomfort with this. Activity makes this worse. No LUT'S sx. Review of Systems Constitutional: No fever, No chills. Eye: Negative. Ear/Nose/Mouth/Throat: Negative. Respiratory: No shortness of breath, No cough. Cardiovascular: No chest pain, No peripheral edema. Gastrointestinal: No nausea, Genitourinary: Negative except as documented in history of present illness. Hematology/Lymphatics: Patient denies being on blood thinners.. Endocrine: Negative. Immunologic: Not immunocompromised. Musculoskeletal: Negative Integumentary: Negative. Neurologic: Alert and oriented X4. Psychiatric: Negative. Surgical History Problems History of Ankle surgery Family History Mother No pertinent family history Father No pertinent family history Social History Problems Current smoker (305.1) (F17.200) Allergies Medication No Known Drug Allergies Recorded By: Devika Robin; 10/08/2022 2:27:23 PM Current Meds Medication NameInstruction No Reported Medications Vitals Vital Signs Recorded: [id number] 02:27PM Bhrhmqdgejc11 Height5 ft 10 in Suhmsz461 lb BMI Kvkpjhhygi45.81 kg/m2 BSA Calculated1.82 Tobacco Usea) Yes Patient encouraged to stop using tobacco productsYes PHQ-2 #1. Over the last 2 weeks have you felt down, depressed or hopeless? (If yes, answer PHQ-9 below)No PHQ-2 #2. Over the last 2 weeks have you felt little interest or pleasure in doing things? (If yes, answer PHQ-9 below)No Falls Screening (Age 18+)a) No falls within the last year Physical Exam A/O x 3 in No apparent distress Constitutional: General appearance normal Respiratory: Respiratory effort is normal Gastrointestinal:Abdomen is not tender Genitourinary: Kidneys: Not palpable Bilaterally Bladder: Not palpable or tender Scrotum: No mass. LARGE RIGHT Hydrocele Epididymis: No spermatocele. Not tender Testicles: no mass Urethra: No Discharge Penis: WNL...No lesions Prostate: deferred Signatures Electronically signed by : Micky Aleman II, MD; Oct 08 2022 2:35PM EST (Author) [facility] [employer] Tobacco Screening.on 023 Adult depression screening assessment [facility] [place] [facility] Work Phone: Fall risk assessment a) No falls within the last year [facility] [place] 232 [facility] Work Phone: Tobacco use status CPHS a) Yes MP-Urology- [facility] 232 DO Work Phone: Tobacco Screening. Yes [facility] [place] 232 DO Work Phone: EMERGENCY REPORTon 3 EMERGENCY REPORT [facility] EMERGENCY ROOM REPORT NAME ACCOUNT SEX AGE ADMIT DISCHARGE PT MED. RECORD# NUMBER DATE TYPE MILE [id number] Tiffanie 03/16/22 03/17/22 3 ROCIO [place] [id number] ROOM: ER DATE OF : 2000 DICTATING PHYSICIAN: Jossy Damon TIME SEEN: 2320 hours. HISTORY OF PRESENT ILLNESS: This is a 21-year-old white male complaining of a sore throat, a nonproductive cough, and some intermittent midsternal chest pain. He states that a lot of times the chest pain occurs when he coughs. He denies any fever. He denies any shortness of breath. He states these symptoms have been going on for about 2 days now. PAST MEDICAL HISTORY: Denied. PAST SURGICAL HISTORY: Denied. ALLERGIES: No known drug allergies. SOCIAL HISTORY: The patient is a smoker of one pack per day. He does admit to occasional alcohol use. He denies any drug use. He lives at home with family. REVIEW OF SYSTEMS: He denies any fevers, sweats or chills. He does complain of a sore throat. He denies any nasal congestion or ear pain. He does complain of some chest pain with a cough. He does admit to a cough but denies any shortness of breath, sputum or wheezing. He denies any abdominal pain, nausea, vomiting, diarrhea, constipation, melena, hematochezia, headache, numbness, unsteady gait, weakness, neck or back pain, joint pain, skin rash or swelling, hives, hay fever, or swollen glands. Further review of systems is negative. PHYSICAL EXAMINATION: VITAL SIGNS: Temperature is 98.1, pulse 94, respirations 18, blood pressure 138/51, pulse oximetry 95% on room air, and weight 113 pounds. GENERAL: The patient is alert and oriented x3. He presently appears in no acute distress. He is pleasant and cooperative. HEENT: Head appears atraumatic. Pupils are equal and reactive to light. Red reflexes are intact bilaterally. Extraocular muscles are intact. No conjunctival injection. EARS: TMs are intact bilaterally. No erythema noted. No external auditory canal edema or bleeding. NOSE: Nose exhibits some clear rhinorrhea. No epistaxis. MOUTH: Mucous membranes are moist. Positive diffuse pharyngeal erythema. Uvula is midline and elevates. NECK: Neck is supple. Trachea is midline. No anterior or posterior cervical lymphadenopathy. No posterior cervical tenderness. No nuchal rigidity. LUNGS: Lungs are clear to auscultation bilaterally Page 1 of 2 [facility] TREADWELL Emergency Room Report ROCIO TREADWELL : 2000 anteriorly but diminished bibasilar. No accessory muscle use is noted. No wheezing. CV: Heart rate and rhythm are regular without murmur. ABDOMEN: Abdomen is soft and nontender with normoactive bowel sounds x4 quadrants. No guarding or rigidity. No rebound. No palpable abdominal masses. No hepatosplenomegaly. BACK: Back exhibits no midline or paraspinal region tenderness. Negative Isiah's sign. EXTREMITIES: No edema or cyanosis. Peripheral pulses are intact. No motor or sensory deficits are noted. Hand data recovery planner are strong and symmetric. SKIN: Skin is warm and dry. No diaphoresis or rash. NEUROLOGIC: Neurologic examination shows the patient to be alert and oriented x4. No motor or sensory deficits are noted. Normal speech. No conversational dyspnea. DIAGNOSTIC DATA: Presently, I did get a chest x-ray. I see no acute infiltrate or failure. His EKG showed a normal sinus rhythm at a rate of 88 bpm. EKG was done at 2326 hours. There were no acute ST-segment changes noted. Grant was approximately 90 degrees. EMERGENCY DEPARTMENT COURSE AND TREATMENT: Presently, I do have an influenza and COVID swab pending and then we will reevaluate. Dictated By: Jossy Damon DO 03/17/22 00:13 JOB #: [id number] Transcribed By: marisel 03/17/22 13:08 Electronically signed by: E-Sign: Dr. Jossy Damon D.O. 03/23/22 07:01 Page 2 of 2 ROCIO TREADWELL Emergency Room Report Normal [facility] EMERGENCY REPORT [facility] EMERGENCY ROOM REPORT NAME ACCOUNT SEX AGE ADMIT DISCHARGE PT MED. RECORD# NUMBER DATE DATE TYPE MILE [id number] 21 03/16/22 03/17/22 3 ROCIO Mathew [id number] ROOM: ER DATE OF : 2000 DICTATING PHYSICIAN: Jossy Damon ADDENDUM DIAGNOSTIC DATA: Rapid strep came back negative so we do have a strep culture pending. Influenza swab came back negative. EMERGENCY DEPARTMENT COURSE AND TREATMENT: I placed the patient on amoxicillin 500 mg one p.o. t.i.d., dispense #30 with no refill, and ibuprofen 600 mg one every 8 hours as needed for pain, dispense #20 with no refill. He is to follow up with [facility] in 3 to 5 days for evaluation. If his symptoms become worse or any other problems develop, return here to the Emergency Department. The patient was discharged in a clinically stable condition. Nurse's notes reviewed. DIAGNOSIS: Acute pharyngitis. Dictated By: Jossy Damon DO 03/17/22 00:52 JOB #: [id number] Transcribed By: marisel 03/17/22 13:31 Electronically signed by: E-Sign: Dr. Jossy Damon D.O. 03/23/22 07:01 Page 1 of 1 [facility] TREAD[facility] Emergency Room Report Normal [facility] ANKLE COMPLETE RTon 03-18-19 ANKLE COMPLETE RT [address] [address] Patient: ROCIO TREADWELL Phone#: : 2000 Age: 21 Gender: M Pt. Type: ER Account: [id number] Location: 052 Ordering: DR. VITOR MORENO Exam Date: 03/17/2022/23:21 Family Phys: Charge Code: [id number] Physician: York Order #: [id number] Dose#: PROCEDURE: X-RAY ANKLE COMPLETE RT MIN 3 VIEWS COMPARISON: [facility], XR, ANKLE COMPLETE RT, 10/02/2020, 17:00. INDICATIONS: Trauma. FINDINGS: BONES: Nondisplaced oblique fracture of the distal fibula. SOFT TISSUES: Mild lateral soft tissue swelling is present. EFFUSION: None visible. OTHER: Negative. CONCLUSION: 1. Nondisplaced distal fibular fracture. Dictated by: Rachel Cabrera MD on 03/18/2022 at 16:08 Approved by: Rachel Cabrera MD on 03/18/2022 at 16:08 Normal [facility] TIBIA-FIBULA RTon 03-18-2022 TIBIA-FIBULA RT [address] [address] Patient: ROCIO TREADWELL Phone#: : 2000 Age: 21 Gender: M Pt. Type: ER Account: [id number] Location: 052 Ordering: DR. VITOR MORENO Exam Date: 03/17/2022/23:29 Family Phys: Charge Code: [id number] Physician: York Order #: [id number] Dose#: PROCEDURE: X-RAY TIB FIB RT 2 VIEWS COMPARISON: None. INDICATIONS: Trauma. FINDINGS: BONES: Nondisplaced distal fibular fracture. SOFT TISSUES: Mild lateral soft tissue swelling at the ankle. EFFUSION: None visible. OTHER: Negative. CONCLUSION: 1. Nondisplaced distal fibular fracture. Dictated by: Rachel Cabrera MD on 03/18/2022 at 16:08 Approved by: Rachel Cabrera MD on 03/18/2022 at 16:09 Normal [facility] CHEST 1 VIEWon 03-17-2022 CHEST 1 VIEW [place] [id number] Patient: ROCIO TREADWELL Phone#: : 2000 Age: 21 Gender: M Pt. Type: ER Account: [id number] Location: [facility] Ordering: JOSSY DAMON Exam Date: 03/16/2022/23:50 Family Phys: Charge Code: [id number] Physician: York Order #: [id number] Dose#: PROCEDURE: X-RAY CHEST 1 VIEW COMPARISON: None. INDICATIONS: Pneumonia. FINDINGS: LUNGS: Normal. No significant pulmonary parenchymal abnormalities. VASCULATURE: Normal. Unremarkable pulmonary vasculature. CARDIAC: Normal. No cardiac silhouette abnormality or cardiomegaly. MEDIASTINUM: Normal. No visible mass or adenopathy. PLEURA: Normal. No effusion or pleural thickening. BONES: Normal. No fracture or visible bony lesion. OTHER: Negative. CONCLUSION: No acute disease. Dictated by: Ynes Hsieh MD on 03/17/2022 at 13:58 Approved by: Ynes Hsieh MD on 03/17/2022 at 14:00 Normal [facility] CULT STREP REFLEX ONLYon CULT STREP REFLEX ONLY CULT STREP REFLEX ONLY _REFLEX STREP SCREEN CULTURE ONLY_ GO TO [facility] REPORTS AND ATTACHMENTS FOR SCANNED REPORT 03/20/22.1524.DNP.COMPLET E Normal [facility] Comment on above: Performed By: #### 2 [id number] #### [facility],[address] [place] [address] INFLUENZA VIRUS RAPID A/Bon 03-17-2022 INFLUENZA VIRUS RAPID A/B INFLUENZA A NEGATIVE INFLUENZA B NEGATIVE INTERNAL NEG QC PASS INTERNAL POS QC PASS EXTERNAL QC DONE? YES SEND TO IC? NO A NEGATIVE TEST RESULT DOES NOT EXCLUDE INFECTION WITH INFLUENZA A OR B. THEREFORE, THE RESULTS OBTAINED FROM THIS FLU TEST SHOULD BE USED IN CONJUCTION WITH CLINICAL FINDINGS TO MAKE AN ACCURATE DIAGNOSIS. A POSITIVE RESULT DOES NOT RULE OUT CO-INFECTIONS WITH OTHER PATHOGENS OR IDENTIFY ANY SPECIFIC INFLUENZA A VIRUS SUBTYPE.CO-INFECTION WITH INFLUENZA A AND B IS RARE. IT IS RECOMMENDED THAT DUAL POSITIVE RESULTS BE CONFIRMED BY VIRAL CULTURE OR AN FDA-CLEARED INFLUENZA A AND B MOLECULAR ASSAY. INDIVIDUALS WHO HAVE RECEIVED NASALLY ADMINISTERED INFLUENZA A VACCINE MAY TEST POSITIVE IN COMMERCIALLY AVAILABLE INFLUENZA RAPID DIAGNOSTIC TESTS FOR UP TO THREE DAYS. RESULT CRITICAL? NO Normal [facility] Comment on above: Performed By: #### 2 [id number] #### [place] [id number] RAPID STREPon 03-17-2022 S. pyogenes Ag IA Ql (Unsp spec) Rapid Strep NEG:GRP A STREP INTERNAL QC PASS EXTERNAL QC DONE? YES Normal [facility] Comment on above: Performed By: #### 2 [id number] #### [facility],[address] [place], [place] [id number] EMERGENCY REPORTon EMERGENCY REPORT [facility] EMERGENCY ROOM REPORT NAME ACCOUNT SEX AGE ADMIT DISCHARGE PT MED. RECORD# NUMBER DATE DATE TYPE MILE [id number] M 02/20/22 02/20/22 3 ROCIO Mathew [id number] ROOM: ER DATE OF : 2000 DICTATING PHYSICIAN: Saul Esquivel HISTORY OF PRESENT ILLNESS: This is a 21-year-old male seen in the presence of his girlfriend in room #2 for a chief complaint of discomfort to the right knee. He states that yesterday he was at work and a load of timber suddenly was heading his way. He got out of the way, but as he did so he twisted his knee. Nothing hit his knee and he did not fall. He states today he has some discomfort to the knee, and he missed work and has to work tomorrow. He has not been taking any medicines for any chronic arthritis, but acute injuries like this he has been using Tylenol and ibuprofen, and it has been helpful. No radiation of discomfort. No other injuries. He is not a diabetic. No history of significant bone problems. He has not seen his family doctor. He states it bothers him mostly if he bends mostly on the outer aspect of his knee. PHYSICAL EXAMINATION: GENERAL: On exam, he is pleasant, alert, and oriented. He denies numbness or tingling distally. He states he has sensation distally. He is seen in room #2. HEENT: Normal. No URI symptoms. NECK: Neck is supple. There is no anterior, posterior, or supraclavicular nodes. LUNGS: Lungs are clear. There is no expiratory wheeze, rales, rhonchi, or paradoxical chest motions. Breath sounds are equal bilaterally. HEART: Heart rate and rhythm is regular. PMI is left chest. He has good radial and dorsalis pedis pulses. ABDOMEN: Abdomen is soft. He is not overweight. EXTREMITIES: Attention to his extremities: He has discomfort over the lateral aspect of the patella. There is maybe a hint of some swelling there. There is no ecchymosis, abrasion. No laceration. Ligaments are intact on exam. Neurovascular distal is normal. Flexion and extension is both active and passive and intact. The patient is ambulatory with a slight limp favoring that knee. The patient denies any prior injuries or prior problems with his knees. DIAGNOSTIC DATA: X-rays revealed no fracture or dislocation, interpretation by the emergency room physician. EMERGENCY DEPARTMENT COURSE AND TREATMENT/PLAN/DISPOSITIO N: Vital signs are stable at discharge. He is to continue ibuprofen. He was given a work excuse. He is to followup with [place] [employer]. Return p.r.n. as necessary. DIAGNOSIS: Strain right knee. Page 1 of 2 [facility]READ[facility] Emergency Room Report ROCIO TREADWELL : 2000 Dictated By: Saul Esquivel DO 02/21/22 01:24 JOB #: [id number] Transcribed By: am 02/21/22 13:25 Electronically signed by: E-SIGN SAUL ESQUIVEL DO 02/21/22 21:47 Page 2 of 2 ROCIO TREADWELL Emergency Room Report Normal [facility] KNEE COMPLETE RT MIN 4 VIEWS on 02-20-2022 KNEE COMPLETE RT MIN 4 VIEWS [place] [address] Patient: ROCIO TREADWELL Phone#: : 2000 Age: 21 Gender: M Pt. Type: ER Account: [id number] Location: 2 Ordering: DR. SAUL ESQUIVEL Exam Date: 02/20/2022/21:36 Family Phys: Charge Code: [id number] Physician: York Order #: [id number] Dose#: PROCEDURE: X-RAY KNEE RT COMPLETE 4 VIEWS COMPARISON: None. INDICATIONS: Pain. FINDINGS: BONES: Normal. No significant arthropathy or acute abnormality. SOFT TISSUES: Negative. No visible soft tissue swelling. EFFUSION: None visible. OTHER: Negative. CONCLUSION: 1. No acute osseous abnormality Dictated by: Ynes Hsieh MD on 02/21/2022 at 9:00 Approved by: Ynes Hsieh MD on 02/21/2022 at 9:03 Normal [facility] EMERGENCY REPORTon 2 EMERGENCY REPORT [facility] EMERGENCY ROOM REPORT NAME ACCOUNT SEX AGE ADMIT DISCHARGE PT MED. RECORD# NUMBER DATE DATE TYPE MILE [id number] Tiffanie 21 12/29/21 12/29/21 3 ROCIO Mathew [id number] ROOM: ER DATE OF : 2000 DICTATING PHYSICIAN: Kenroy Reyes HISTORY OF PRESENT ILLNESS: This is a 21-year-old male who presents with left lower tooth pain that woke him from sleep. He has been having pain in that over the last several days. It was much worse tonight. It was not relieved with Tylenol or Excedrin. He denies fever or chills. No difficulty swallowing. No voice change. No sore throat. No tongue swelling. No ear pain. No neck, arm, or jaw pain. He does have pain in the left lower posterior area where he has a couple of bad teeth. PAST MEDICAL HISTORY: Denied. PAST SURGICAL HISTORY: Denied. ALLERGIES: No known medication allergies. SOCIAL HISTORY: Positive for tobacco use, one quarter of a pack of cigarettes per day. He denies alcohol use. He denies recreational drug use. REVIEW OF SYSTEMS: A complete review of systems is otherwise negative except as noted above. PHYSICAL EXAMINATION: VITAL SIGNS: Revealed a temperature of 98.0, pulse 81 and regular, respirations 18 and unlabored with a pulse oximetry of 100%. Blood pressure is 153/89. HEENT: Mucous membranes are pink, moist, and intact. Tongue and uvula are midline. Phonation is normal. Examination of the mouth revealed left lower posterior molar with dental caries and gum erythema. The floor of the mouth is soft. Tongue and uvula are midline. There is no drooling or trismus. Tympanic membranes are intact and clear. The patient can fully open and close his mouth. No gross cervical adenopathy. Trachea is midline. No thyromegaly. NECK: Neck is supple. HEART: Regular rate and rhythm. LUNGS: Clear to auscultation. No rales, rhonchi, or wheeze. SKIN: Warm and dry. No rash. EMERGENCY DEPARTMENT COURSE AND TREATMENT/PLAN/DISPOSITIO N: The patient will be started on amoxicillin 875 mg b.i.d. x10 days. The patient will be given a prescription for ibuprofen 600 mg 4 times a day p.r.n. pain #40 with no refill. The patient was given starting doses here. The patient is discharged home in improved and stable condition. The patient is encouraged to followup with his dental provider of Page 1 of 2 [facility] TREADWE[facility] Emergency Room Report ROCIO TREADWELL : 2000 choice as soon as possible. The patient was invited to return if acutely worse or new or worrisome symptoms. Dictated By: Kenroy Reyes DO 12/29/21 03:29 JOB #: [id number] Transcribed By: am 12/29/21 10:33 Electronically signed by: Dr. Kenroy Reyes DO 01/01/22 13:05 Page 2 of 2 ROCIO TREADWELL Emergency Room Report Normal [facility] Coronavirus 2019on 1 COVID 19 Result MARBLE COPER Abnormal Negative for COVID19 (SARS CoV2) by PCR. [facility] Comment on above: Result Comment: Posi tive for This test was developed and its performance characteristics determined by [facility]'s [facility] [place]. This test has been authorized by FDA under an Emergency Use Authorization (EUA). This test has been validated in accordance with the FDA's Guidance Document Policy for Diagnostics Testing in Laboratories Certified to Perform High Complexity Testing under CLIA prior to Emergency use Authorization for Coronavirus Disease 2019 during the Public Health Emergency issued on May 16, 2019. COVID19 (SARS This test was developed and its performance characteristics determined by [facility]'s [facility] [place]. This test has been authorized by FDA under an Emergency Use Authorization (EUA). This test has been validated in accordance with the FDA's Guidance Document Policy for Diagnostics Testing in Laboratories Certified to Perform High Complexity Testing under CLIA prior to Emergency use Authorization for Coronavirus Disease 2019 during the Public Health Emergency issued on May 16, 2019. CoV2) by This test was developed and its performance characteristics determined by [facility] [place]. This test has been authorized by FDA under an Emergency Use Authorization (EUA). This test has been validated in accordance with the FDA's Guidance Document Policy for Diagnostics Testing in Laboratories Certified to Perform High Complexity Testing under CLIA prior to Emergency use Authorization for Coronavirus Disease 2019 during the Public Health Emergency issued on May 16, 2019. PCR.(*) This test was developed and its performance characteristics determined by [facility] [place] [facility] [place]. This test has been authorized by FDA under an Emergency Use Authorization (EUA). This test has been validated in accordance with the FDA's Guidance Document Policy for Diagnostics Testing in Laboratories Certified to Perform High Complexity Testing under CLIA prior to Emergency use Authorization for Coronavirus Disease 2019 during the Public Health Emergency issued on May 16, 2019. Coronavirus 2019on 1 COVID 19 Source MARBLE COPER MARBLE COPER Normal [facility] INFLUENZA A,B RAPID MOLECULA Magdy 04-27-2019 FLUAV RNA MARY+probe Ql (Unsp spec) Not Detected Not Detected [facility] FLUBV RNA MARY+probe Ql (Unsp spec) Detected Abnormal Not Detected [facility] Interpretation and review of laboratory results Abnormal [facility] Test Method: Nucleic Acid Amplification [facility] Rapid Strep Screenon 020 Interpretation and review of laboratory results Normal [facility] Strep A Ag Negative Presumptive Negative for Group A Streptococcus [facility] XR FOOT LEFT 3+ VIEWS (STAND CHEMA)on 05-30-2018 There is no acute os seous injury or response. There is soft tissue swelling at the great toe. There appears to be some radiopaque material along the nail bed. [facility] Work[facility] ID: [id number] [facility] EXAMINATION: XR FOOT LEFT 3+ VIEWS (STANDARD) HISTORY: FOOT PAIN COMPARISON: None. FINDINGS: Three views of the left foot are provided. No fracture or malalignment is identified. Joint spaces are well preserved. There is soft tissue swelling at the great toe. There is some radiopaque material along the nail bed. No gas or foreign body is identified within the soft tissues. [facility] Interface, Rad In Fu ji Speechq - 05/30/2018 12:59 AM EDT EXAMINATION: XR FOOT LEFT 3+ VIEWS (STANDARD) HISTORY: FOOT PAIN COMPARISON: None. FINDINGS: Three views of the left foot are provided. No fracture or malalignment is identified. Joint spaces are well preserved. There is soft tissue swelling at the great toe. There is some radiopaque material along the nail bed. No gas or foreign body is identified within the soft tissues. IMPRESSION: There is no acute osseous injury or response. There is soft tissue swelling at the great toe. There appears to be some radiopaque material along the nail bed. [facility] Work[facility] ID: [id number] [facility] XR FOOT LEFT 3+ VIEWS (STANDARD) EXAMINATION: XR FOOT LEFT 3+ VIEWS (STANDARD) HISTORY: FOOT PAIN COMPARISON: None. FINDINGS: Three views of the left foot are provided. No fracture or malalignment is identified. Joint spaces are well preserved. There is soft tissue swelling at the great toe. There is some radiopaque material along the nail bed. No gas or foreign body is identified within the soft tissues. IMPRESSION: There is no acute osseous injury or response. There is soft tissue swelling at the great toe. There appears to be some radiopaque material along the nail bed. [facility] Work[facility] ID: [id number] Dictated by: FOX RAINES on SatMay 30, 2018 12:03:43 AM EDT Transcribed by: JENNI DUBON on SatMay 30, 2018 12:26:13 AM EDT Finalized by: FOX RAINES on SatMay 30, 2018 12:57:18 AM EDT [facility] Comment on above: Order Comment: Reaso n for exam?:TRAUMA Injury/Trauma or Illness?:Injury/Trauma How long have you had these symptoms (acute/chronic)?:Unknown History of cancer?:N/A Surgeries, chemotherapy, or radiation?:N/A Type of Exam?:Initial Mechanism of injury?:STUBBED BIG TOE 3 WKS AGO, BECAME INFECTED, HAD TOENAIL REMOVED, NOW IT'S INFECTED Vital Signs Date Time Vital Sign Value Performing Clinician Facility 12-05-2023 20:30-0400 Blood Pressure Location NIDAL CHOUJAA DO [facility] 12-05-2023 20:30-0400 Blood Pressure Method NIDAL CHOUJAA DO [facility] 12-05-2023 20:30-0400 Body height 176 cm NIDAL CHOUJAA DO [facility] 12-05-2023 20:30-0400 Body temperature 97.88 [degF] NIDAL CHOUJAA DO [facility] 12-05-2023 20:30-0400 Body weight 63.6 kg NIDAL CHOUJAA DO [facility] 12-05-2023 20:30-0400 Diastolic Blood Pressure Non-Invasive 66 mm[Hg] NIDAL CHOUJAA DO [facility] 12-05-2023 20:30-0400 Heart rate 88 /min NIDAL CHOUJAA DO [facility] 12-05-2023 20:30-0400 Respiratory rate 18 /min NIDAL CHOUJAA DO [facility] 12-05-2023 20:30-0400 Systolic Blood Pressure Non-Invasive 131 mm[Hg] NIDAL CHOUJAA DO [facility] 10-31-2022 14:33-0400 Body weight 65.77 kg No PCP None VS-Lhrpgqg-Dplnl nd Work Phone: 10-31-2022 14:33-0400 Respiratory rate 16 /min No PCP None YX-Aifbnui-Oqrl and Work Phone: 10-22-2022 08:08-0400 Body weight 65.77 kg No PCP None QP-Xtsphik-Kruuw and [facility] 232 DO Work Phone: 10-22-2022 08:08-0400 Respiratory rate 16 /min No PCP None AZ-Ydbxtgr-Zzsr land [facility] 232 DO Work Phone: 10-08-2022 14:27-0400 Body height 177.8 cm No PCP None ZF-Orknkwz-Cgkrl and [facility] 232 DO Work Phone: 10-08-2022 14:27-0400 Body mass index (BMI) [Ratio] 20.81 kg/m2 No PCP None VJ-Mrlfhrx-Dhgyuhie [facility] 232 DO Work Phone: 10-08-2022 14:27-0400 Body surface area Derived from formula 1.82 m2 No PCP None TR-Jotefvw-Dotshknc [facility] 232 DO Work Phone: 10-08-2022 14:27-0400 Body weight 65.77 kg No PCP None FC-Pheqjmp-Neaoi and HC 232 DO Work Phone: 10-08-2022 14:27-0400 Respiratory rate 15 /min No PCP None WY-Dhbikff-Qypx land [facility] 232 DO Work Phone: 04-27-2019 18:43-0500 BMI (Body Mass Index) 22.38 kg/m2 Micky Guerrero [facility] 04-27-2019 18:43-0500 Body Temperature 98.8 [degF] Micky Guerrero [facility] 04-27-2019 18:43-0500 Body weight 70.76 kg Micky Guerrero [facility] 04-27-2019 18:43-0500 BP Diastolic 75 mm[Hg] Micky Guerrero [facility] 04-27-2019 18:43-0500 BP Systolic 118 mm[Hg] Micky Guerrero [facility] 04-27-2019 18:43-0500 Height 177.8 cm Micky Guerrero [facility] 04-27-2019 18:43-0500 Pulse (Heart Rate) 70 /min Micky Guerrero [facility] 04-27-2019 18:43-0500 Pulse Oximetry 97 % Micky Guerrero [facility] 04-27-2019 18:43-0500 Respiratory Rate 16 /min Micky Guerrero [facility] 05-29-2018 21:48-0400 Body Temperature 98.4 [degF] Kye [facility] 05-29-2018 21:48-0400 BP Diastolic 79 mm[Hg] [facility] 05-29-2018 21:48-0400 BP Systolic 131 mm[Hg] [facility] 05-29-2018 21:48-0400 Pulse (Heart Rate) 92 /min [facility] 05-29-2018 21:48-0400 Pulse Oximetry 97 % [facility] 05-29-2018 21:47-0400 BMI (Body Mass Index) 23.18 kg/m2 [facility] 05-29-2018 21:47-0400 Height 170.2 cm [facility] 05-29-2018 21:47-0400 Weight 67.13 kg [facility] Encounters Encounter Date Encounter Type Care Provider Facility Start: 12-05-2023 End: 12-05-2023 Emergency department patient visit VALERIA SHAW DO [facility] Start: 12-18-2022 End: 12-19-2022 Emergency department patient visit [facility] Start: 12-06-2022 End: 12-07-2022 Emergency department patient visit [facility] Start: 10-31-2022 ambulatory MD MICKY ALEMAN Fa cility:[id number] Start: 10-31-2022 FUV, Provider: Micky Aleman II, Status: Pen, Time: 1:45 PM No PCP None JW-Rsdsrpt-Klmhofe Work Phone: Start: 10-31-2022 Postop follow up vis it related to original px No PCP None WV-Krxtegb-Bbpsiqi Work Phone: Start: 10-30-2022 Chart Update No PCP None [facility] Work Phone: Start: 10-22-2022 ambulatory MD MICKY ALEMAN Fa cility:[id number] Start: 10-22-2022 Office outpatient vi sit 15 minutes No PCP None SL-Fznffvz-Sdurvfyc HC 232 DO Work Phone: Start: 10-16-2022 End: 10-16-[address] Micky Aleman II Facility:[id number] Start: 10-08-2022 ambulatory MD MICKY ALEMAN Fa cility:[id number] Start: 03-18-2022 End: 03-18-2022 Emergency department patient visit VITOR COSTAUNEKDARIN [facility] Start: 03-17-2022 End: 03-17-2022 Emergency department patient visit JOSSY VILLAVICENCIO [facility] Start: 02-20-2022 End: 02-21-2022 Emergency department patient visit SAUL VILLAVICENCIO [facility] Start: 12-29-2021 End: 12-29-2021 Emergency department patient visit KENROY VILLAVICENCIO [facility] Start: 04-27-2019 End: 04-27-2019 Emergency department patient visit [facility] Start: 04-27-2019 End: 04-27-2019 Emergency department patient visit Micky Dianequincy Guerrero Work Phone: [facility] Comment on above: Influenza (Primary D x) Start: 05-29-2018 End: 05-30-2018 Emergency department patient visit [facility] Start: 05-29-2018 End: 05-30-2018 Emergency department patient visit Kye Price Kimberly Work Phone: [facility] Comment on above: Cellulitis of great toe, unspecified laterality (Primary Dx) Start: 04-24-2018 End: 04-24-2018 Emergency department patient visit Kye Mathew Egavi Facility:[facility] Procedures Date Procedure Procedure Detail Performing Clinician Start: 04-27-2019 Influenza virus A AN D B antigen assay Priscilla Garcia Work Phone: Start: 04-27-2019 Streptococcus pyogen es Ag [Presence] in Throat Priscilla Garcia Work Phone: Start: 05-30-2018 X-ray of left foot Tria ge Protocol Emergency Operative procedure on ankle No PCP None Plan of Treatment Date Care Activity Detail Author Start: 02-25-2024 Tetanus vaccination TETANUS EVERY 10 YR [facility] Start: 02-13-2023 FUV, Provider: Micky Aleman II, Status: Pen, Time: 7:45 AM FUV, Provider: Micky Aleman II, Status: Pen, Time: 7:45 AM IM-Zubsaty-Alhuulp Work Phone: Start: 10-25-2022 FUV, Provider: Micky Aleman II, Status: Pen, Time: 9:15 AM FUV, Provider: Micky Aleman II, Status: Pen, Time: 9:15 AM LT-Luiphah-Pryiiiyt [facility] 232 DO Work Phone: Start: 05-07-2022 Tetanus, diphtheria and acellular pertussis vaccination DTAP VACCINES (4 - Td) [facility] Start: 01-24-2019 History and physical examination, annual for health maintenance Wellness Visit [facility] Start: 11-16-2018 Influenza vaccinatio n given SEQUENTIAL INFLUENZA VACCINE (#1) [facility] Start: 06-03-2018 End: 06-03-2018 Office Visit 06/03/2018 Office Visit Podiatry Yudith Alves, DPTiffanie [address] [place] [address] [facility] Start: 05-07-2017 Tetanus, diphtheria and acellular pertussis vaccination DTAP VACCINES (4 - Td) [facility] Start: 2001 Depression screening using PHQ-9 (Patient Health Questionnaire 9) score Depression Screening (PHQ9) [facility] End: 04-27-2019 S. pyogenes Org specific cx Ql (Throat) Strep A Culture, Throat Microbiology HARRIS Once for 1 Occurrences starting 04/27/2019 until 04/27/2019, 1 completed [facility] Comment on above: Once for 1 Occurrenc es starting 04/27/2019 until 04/27/2019, 1 completed S. pyogenes Org spec ific cx Ql (Throat) Strep A Culture, Throat Microbiology Routine 04/27/2019 6:46 PM EST [facility] Immunizations Immunization Date Immunization Notes Care Provider Fa cility 01-24-2018 influenza, injectabl e, quadrivalent, preservative free [facility] 01-24-2018 meningococcal B vacc ine, recombinant, OMV, adjuvanted [facility] 11-22-2017 meningococcal B vacc ine, recombinant, OMV, adjuvanted [facility] 11-22-2017 meningococcal polysa ccharide (groups A, C, Y and W-135) diphtheria toxoid conjugate vaccine (MCV4P) [facility] 12-30-2014 poliovirus vaccine, inactivated Luis Angel ein [facility] 11-05-2014 human papilloma viru s vaccine, quadrivalent [facility] 02-24-2014 human papilloma viru s vaccine, quadrivalent [facility] 02-24-2014 meningococcal polysa ccharide (groups A, C, Y and W-135) diphtheria toxoid conjugate vaccine (MCV4P) [facility] 02-24-2014 tetanus and diphther ia toxoids, adsorbed, preservative free, for adult use (2 Lf of tetanus toxoid and 2 Lf of diphtheria toxoid) [facility] 05-07-2012 hepatitis A vaccine, pediatric/adolescent dosage, 2 dose schedule [facility] 05-07-2012 measles, mumps, rube lla, and varicella virus vaccine [facility] 05-07-2012 poliovirus vaccine, inactivated [facility] 05-07-2012 tetanus toxoid, redu nellie diphtheria toxoid, and acellular pertussis vaccine, adsorbed [facility] 05-31-2006 diphtheria, tetanus toxoids and acellular pertussis vaccine [facility] 05-31-2006 DTaP-hepatitis B and poliovirus vaccine [facility] 05-31-2006 hepatitis A vaccine, adult dosage [facility] 05-31-2006 hepatitis A vaccine, pediatric/adolescent dosage, 2 dose schedule [facility] 05-31-2006 hepatitis B vaccine, pediatric or pediatric/adolescent dosage [facility] 05-31-2006 [facility], [facility] 05-31-2006 varicella virus vaccine [facility] 01-10-2004 diphtheria, tetanus toxoids and acellular pertussis vaccine [facility] 01-10-2004 diphtheria, tetanus toxoids and acellular pertussis vaccine, unspecified formulation [facility] 01-10-2004 haemophilus influenz ae type b conjugate and Hepatitis B vaccine [facility] 01-10-2004 haemophilus influenz ae type b vaccine, conjugate unspecified formulation [facility] 01-10-2004 hepatitis B vaccine, pediatric or pediatric/adolescent dosage [facility] 01-10-2004 measles, mumps and r ubella virus vaccine [facility] 01-10-2004 poliovirus vaccine, inactivated Luis Angel ein [facility] 2001 hepatitis B vaccine, pediatric or pediatric/adolescent dosage [facility] Payers Date Payer Category Payer Self-pay 2015 Medicaid [employer] xxxxxxxxxxx 2015-Present [id number] 2015 Unknown [id number] 2001 Unknown [id number] 2..[id number]. 2.1069 2001 Unknown [id number] 2..840.1.489607.3.579. 2.356 2001 Unknown [id number] 2..840.1.839076.3.579. 2.356 2001 Unknown [id number] 2..840.1.261554.3.579. 2.356 2001 Unknown [id number] 2.16.840.1.413554.3.579. 2.651 2001 Unknown [id number] 2.16.840.1.521997.3.579. 2.651 2001 Unknown [id number] 2.16.840.1.227728.3.579. 2.651 2001 Unknown [id number] 2.16.840.1.622947.3.579. 2.651 2001 Unknown [id number] 2.16.840.1.776286.3.579. 2.651 2001 Unknown [id number] 2.16.840.1.286201.3.579. 2.651 2001 Unknown [id number] 2.16.840.1.256240.3.579. 2.627 1981 Unknown [id number] 2.16.840.1.366834.3.579. 2.903 1981 Unknown [id number] 2.16.840.1.089525.3.579. 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) [facility] Current smoker [facility] Work Phone: Tobacco smoking status No Smokin g Status Entered [facility] Sex Assigned At Male [facility] Functional Status Date Assessment Result Facility 12-05-2023 Functional Status Independent [facility] Mental Status Date Assessment Result Facility 12-05-2023 Mental Status Orientation Oriented x 4 [facility] Discharge instructions 12-06-2023 Note Date & Type Note Facility 12-06-2023 Hospital Discharg e instructions Patient Education 12/05/2023 22:27:11 Smoking Cessation How to Quit Smoking Smoking is a hard habit to break. About half of all people who have ever smoked have been able to quit. Most people who still smoke want to quit. Here are some of the best ways to stop smoking. Keep in mind the health benefits of quitting The health benefits of quitting start right away. They keep improving the longer you go without smoking. Knowing this can help inspire you to stay on track. These benefits occur at any age. If you are 17 or 70, quitting is a good choice. Some of the health benefits after your last cigarette include: 20 minutes: Your blood pressure and pulse return to normal. 8 hours: Your oxygen levels return to normal. 2 days: Your ability to smell and taste start to improve as damaged nerves regrow. 2 to 3 weeks: Your circulation and lung function improve. 1 to 9 months: Your coughing, congestion, and shortness of breath decrease. Your tiredness decreases. 1 year: Your risk of heart attack decreases by half. 5 years: Your risk of lung cancer decreases by half. Your risk of stroke becomes the same as a nonsmoker s. Go cold turkey Most former smokers quit cold turkey. This means stopping all at once. Trying to cut back slowly often doesn't work as well. This may be because it continues the habit of smoking. Also, you may inhale more smoke while smoking fewer cigarettes. This leads to the same amount of nicotine in your body. Get support Support programs can be a big help, especially for heavy smokers. These groups offer lectures, ways to change behavior, and peer support. Here are some ways to find a support program: Free national quitline 866-JQBS-BEJ (960-422-7664) [facility] quit-smoking programs [employer] 860-049-3570 [employer] 175-204-2994 Support at home is important too. Family and friends can offer praise and reassurance. If the smoker in your life finds it hard to quit, encourage them to keep trying. Try gibz-jrq-edsqsaz medicine Nicotine replacement therapy may make it easier to quit. Some aids are available without a prescription. These include a nicotine patch, gum, and lozenges. But it is best to use these under the care of your healthcare provider. The skin patch gives a steady supply of nicotine. Nicotine gum and lozenges give short-time doses of low levels of nicotine. Both methods reduce the craving for cigarettes. If you have nausea, vomiting, dizziness, weakness, or a fast heartbeat, stop using these products. See your healthcare provider. Ask about prescription medicine After reviewing your smoking patterns and past attempts to quit, your doctor may offer a prescription medicine such as bupropion, varenicline, a nicotine inhaler, or nasal spray. Each has advantages and side effects. Your doctor can review these with you. Keep trying Most smokers make many attempts at quitting before they are successful. It s important not to give up. For more information For more on how to quit smoking, try these online resources: Go to Smokefree.gov. Read Clearing the Air from the [employer] [place] at smokefree.gov/sites/default/fi les/pdf/vztvjhpg-jct-kou-jessica berrios.pdf. 5899-3637 [employer]. [address] [place] [address]. All rights reserved. This information is not intended as a substitute for professional medical care. Always follow your healthcare professional's instructions. Follow Up Care 12/05/2023 20:30:31 With:Call Physician Referral Address:Unknown When:2-4 days [facility] Clinical Note 12-05-2023 Note Date & Type Note Facility 12-05-2023 Note Discharge Instructions Thank you for allowing [place] to assist you with your healthcare needs. The following is important discharge information regarding your hospital visit. Diagnosis from Today's Visit Blood in sputum Cough What to Do Next Instructions from Your Care Team Discharge Return to Work, School, or Sports (Return to Work, School, or Sports) - Ordered -- 12/07/23, May return to: work, 12/05/23 22:26:00 EDT Post Acute Orders No qualifying data available. You Need to Schedule the Following Appointments Follow Up with Call Physician Referral When:Within 2-4 days Allergies NKA Medications Please ask your primary doctor or pharmacist before taking any other medication not listed, including over the counter drugs, herbal medications, vitamins and or supplements as they may interact with your home medications. Please take this list to your next doctor s visit. Bring all medications you take, including over the counter medications, herbals and other supplements with you to your doctor s visit. Patients and families are reminded to discard old lists and to update any records with all medication providers or retail pharmacies. Education Materials How to Quit Smoking Smoking is a hard habit to break. About half of all people who have ever smoked have been able to quit. Most people who still smoke want to quit. Here are some of the best ways to stop smoking. Keep in mind the health benefits of quitting The health benefits of quitting start right away. They keep improving the longer you go without smoking. Knowing this can help inspire you to stay on track. These benefits occur at any age. If you are 17 or 70, quitting is a good choice. Some of the health benefits after your last cigarette include: 20 minutes: Your blood pressure and pulse return to normal. 8 hours: Your oxygen levels return to normal. 2 days: Your ability to smell and taste start to improve as damaged nerves regrow. 2 to 3 weeks: Your circulation and lung function improve. 1 to 9 months: Your coughing, congestion, and shortness of breath decrease. Your tiredness decreases. 1 year: Your risk of heart attack decreases by half. 5 years: Your risk of lung cancer decreases by half. Your risk of stroke becomes the same as a nonsmoker s. Go cold turkey Most former smokers quit cold turkey. This means stopping all at once. Trying to cut back slowly often doesn't work as well. This may be because it continues the habit of smoking. Also, you may inhale more smoke while smoking fewer cigarettes. This leads to the same amount of nicotine in your body. Get support Support programs can be a big help, especially for heavy smokers. These groups offer lectures, ways to change behavior, and peer support. Here are some ways to find a support program: Free national quitline 047-YJVT-IJG (791-497-5225) [facility] quit-smoking programs [employer] 168-489-2544 [employer] 894-653-9228 Support at home is important too. Family and friends can offer praise and reassurance. If the smoker in your life finds it hard to quit, encourage them to keep trying. Try jrbz-uhw-msvzhnn medicine Nicotine replacement therapy may make it easier to quit. Some aids are available without a prescription. These include a nicotine patch, gum, and lozenges. But it is best to use these under the care of your healthcare provider. The skin patch gives a steady supply of nicotine. Nicotine gum and lozenges give short-time doses of low levels of nicotine. Both methods reduce the craving for cigarettes. If you have nausea, vomiting, dizziness, weakness, or a fast heartbeat, stop using these products. See your healthcare provider. Ask about prescription medicine After reviewing your smoking patterns and past attempts to quit, your doctor may offer a prescription medicine such as bupropion, varenicline, a nicotine inhaler, or nasal spray. Each has advantages and side effects. Your doctor can review these with you. Keep trying Most smokers make many attempts at quitting before they are successful. It s important not to give up. For more information For more on how to quit smoking, try these online resources: Go to Smokefree.gov. Read Clearing the Air from the [employer] [place] at smokefree.gov/sites/default/files/pdf/ ptarwbie-vud-fep-accessible.pdf. 0699-3862 [employer]. [address] [place] [address], [place] [address]. All rights reserved. This information is not intended as a substitute for professional medical care. Always follow your healthcare professional's instructions. Additional Information VACCINATE! IT SAVES LIVES! Members of the community who have not yet received the COVID-19 vaccine and would like to receive it can visit one of [facility] vaccine clinics. There are many vaccine clinic locations within the [facility]. For locations and available times, please visit www.[email or web address] It is important to note that some COVID mobile vaccine clinics are held outdoors and may be canceled in rainy or stormy conditions. To learn more about pediatric vaccinations (ages 5-11), we invite you to visit the [facility] webpage. [email or web address] To learn more about the COVID-19 vaccine, we invite you to visit the CDC website for a list of frequently asked questions. https://www.cdc.gov/coronavirus/2019-n cov/vaccines/faq.html [facility] Access Instructions: Stay connected with your healthcare team and access your personal medical information anytime with the [facility] Patient Portal. If you would like a full copy of your medical records please contact the [facility] Medical Records Department Saturday through Saturday between 8a.m. and 4:30p.m. Please follow the directions below to access the portal: 1.Access the email account you provided upon registration to the [facility].2.Look for an invitation email from [facility].3.Open the email and access the invitation link: Accept Invitation to [facility]4.Fill in the required whitlock to create your account. Sign into [email or web address] with your username and password that you created in the above steps to stay up to date. You can then view a summary of results, a summary of your visits, and the ability to download your summaries to your computer or send the information securely to a physician. Remember that your healthcare information is confidential, so carefully consider who you will allow to register on the [facility] Patient Portal for access to your information. You can also access the [facility] Patient Portal on the [employer]. Simply click on Health Records under Health Data and then click on the [facility] logo. HOW TO SAFELY DISPOSE OF PRESCRIPTION MEDICATIONS Please use one of the following methods to safely dispose of your unused medications. 1.Use a drug disposal kit: the drug disposal pouch allows you to safely discard your old and unused drugs. Ask your nurse to give you one when you are discharged.2.Visit a local take-back location: Many local pharmacies and police departments have programs that collect old and unwanted prescription drugs. Call your local pharmacy or go to http://[facility].Nuenz/3A6Nq4u to find one close to you.3.Make use of household items: Use cat litter or old coffee grounds to dispose medications if other options are not available. Mix your drugs with these household products, seal them in an airtight container and throw it into the garbage. Call [facility]: [phone] to be sure your drugs can be disposed of in this way. Some medicines may require a different approach.4.Never flush your medications down the toilet. IF YOU HAVE BEEN PRESCRIBED AN OPIOIDS FOR PAIN If you have been prescribed an opioid (such as hydrocodone, oxycodone or morphine), it is critical to understand the possible side effects and risks of opioid pain medications. Even when taken as directed, opioids can have several side effects including: Tolerance, meaning you might need to take more of a medication for the same pain relief. Nausea, vomiting and/or constipation. Sleepiness, dizziness, dry mouth, confusion, depression or itching. Physical dependence, meaning you have withdrawal symptoms when a medication is stopped ? this can develop within a few days. KNOW YOUR RESPONSIBILITIES It is important to know exactly how much and how often to take the opioid pain medications you are prescribed. Never take opioids in higher amounts or more often than prescribed. Do not combine opioids with alcohol or other drugs that cause drowsiness, such as benzodiazepines, also known as benzos, including diazepam and alprazolam, muscle relaxants or sleep aids. Never sell or share prescription opioids. This is illegal. Store opioids in a secure place and out of reach of others (including children, family, friends and visitors). The last page(s) of this document has been signed and retained as a CHART COPY Signatures Patient Education Materials Smoking Cessation Medication Leaflets My discharge plan and instructions have been reviewed and explained to me and I,ROCIO TREADWELL understand my current condition and have read and understand these discharge instructions. I have received a written copy of the plan/instructions. If I have questions, I am aware that I should contact my doctor. 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 HISTORY: ORDERING SYSTEM PROVIDED HISTORY: Reason for Exam: patient reports bloody sputum for the past week and a half when he smokes and vapes pain FINDINGS: Cardiomediastinal contours are within normal limits. No focal consolidation or pulmonary edema. No pneumothorax or pleural effusion. No acute osseous abnormalities. IMPRESSION: No acute radiographic process. Preliminary Report was Dictated by a Resident I have personally reviewed all of the images of this examination and agree with the resident findings and interpretation. Interpreted by: Jossy Temple MD Preliminary Report By: Wets Crook Electronically signed By Jossy Temple MD Dictated Date: 12/05/2023 9:28:18 PM Prelim Date: 12/05/2023 9:31:33 PM Sign Date: 12/05/2023 9:59:10 PM Ordering Provider: [facility] History of Present illness Narrative 10-30-2022 Note Date & Type Note Facility 10-30-2022 History of Present illness Narrative Patient is here for drain tube removal. S/P Right Hydrocelectomy on Saturday. He states he is still having a lot of drainage. [facility] Work Phone: Clinical Note 10-16-2022 Note Date & Type Note Facility 10-16-2022 Note PROCEDURE DETAILS Preoperative Diagnosis: Hydrocele, unspecified, N43.3 Postoperative Diagnosis: Hydrocele, unspecified, N43.3 Surgeon: Micky Aleman Resident/Fellow/Other Magnetic Prospecting Supervisor: None of these were associated with this case Procedure: 1. R HYDROLECTOMY Anesthesia: No anesthesiologist associated with this case Estimated Blood Loss: 0 Findings: see op note Specimens(s) Collected: yes, Operative Report: Code: [id number] Description: Love's hydrocele Anesthetic: General. Pre-Op Diagnosis: Right hydrocele. Post-Op Diagnosis: Right hydrocele. Operation: Right hydrocelectomy. Estimated blood loss: Minimal. Complications: None. Indications and consent: The patient has a known hydrocele and now presents for surgical intervention. After the risks, benefits, alternatives and indications of procedure were explained, he consented. DESCRIPTION OF PROCEDURE: The patient was brought to the operating room and placed on the table in supine position. After adequate anesthesia was obtained, the patient was prepped and draped in the standard surgical fashion. An incision was made on the right hemiscrotum. This incision was carried down through the dartos muscular layer. The hydrocele sac was revealed. The hydrocele sac was dissected free of its attachments. The hydrocele sac was then delivered through the incision intact. We then opened the hydrocele sac and evacuated the fluid. The excess hydrocele sac was excised, using electrocautery. We then repaired the hydrocele in the standard bottleneck fashion, using chromic suture. Care was taken so as not to twist the testicle upon its cord. Electrocautery was used to obtain hemostasis. The testicle was carefully placed back in the scrotum, again taking care so as not to twist it. We then irrigated the wound again. A Polk drain was placed. The incision was then closed in three layers. The patient tolerated the procedure well. There were no complications. follow up saturday for drain tube removal Attestation: Note Completion: Attending AttestationI performed the procedure without a resident Electronic Signatures: Micky Aleman) (Signed 16-Oct-2022 10:00) Authored: Post-Operative Note, Chart Review, Note Completion Last Updated: 16-Oct-2022 10:00 by Micky Aleman) [facility] Clinical Note 10-16-2022 Note Date & Type Note Facility 10-16-2022 Note History & Physical R eviewed: I have reviewed the History and Physical dated: 08-Oct-2022 History and Physical reviewed and relevant findings noted. Patient examined to review pertinent physical findings.: No significant changes Home Medications Reviewed: no changes noted Allergies Reviewed: no changes noted ERAS (Enhanced Recovery After Surgery): ERAS Patient: no Consent: COVID-19 Consent: COVID-19 Risk ConsentSurgeon has reviewed fox risks related to the risk of everardo COVID-19 and if they contract COVID-19 what the risks are. Electronic Signatures: Micky Aleman) (Signed 16-Oct-2022 07:38) Authored: History & Physical Reviewed, ERAS, Consent, Note Completion Last Updated: 16-Oct-2022 07:38 by Micky Aleman) [facility] Evaluation + Plan note Note Date & Type Note Facility Evaluation + Plan note No data available for this section [facility] History of Present illness Narrative Note Date & Type Note Facility History of Present illness Narrative Patient is here for drain tube removal. S/P Right Hydrocelectomy on Saturday. He states he is still having a lot of drainage. 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 Take Tylenol and Motrin for fevers or discomfort. Push fluids. Rest. Follow-up with your health education aide within 1 to 3 days. If symptoms worsen or persist please present back to the ER. * Attachments The following attachments cannot be sent through Care Everywhere. * Influenza (Paraguayan) documented in this encounter Assessments Diagnosis Cellulitis of great toe, unspecified laterality- Primary Diagnosis Influenza Influenza with other respiratory manifestations Chief Complaint Drain tube removalDrain tube removal Additional Source Comments (unrecognized sect ion and content) No Status Records FoundNo Status Records FoundNo Status Records FoundNo Status Records FoundNo Status Records FoundNo Status Records FoundNo Status Records FoundNo Status Records Found INFORMATION SOURCE (unrecogn ized section and content) DATE CREATED AUTHOR 05/07/2018 [facility] DATE CREATED AUTHOR AUTHOR'S ORGANIZ ATION 04/28/2019 [facility] DATE CREATED AUTHOR AUTHOR'S ORGANIZ ATION 03/25/2020 [facility] DATE CREATED AUTHOR AUTHOR'S ORGANIZ ATION 10/31/2022 [facility] DATE CREATED AUTHOR AUTHOR'S ORGANIZ ATION 11/01/2022 [facility] DATE CREATED AUTHOR AUTHOR'S ORGANIZ ATION 11/01/2022 [facility] DATE CREATED AUTHOR AUTHOR'S ORGANIZ ATION 12/22/2022 [facility] DATE CREATED AUTHOR AUTHOR'S ORGANALEXANDER ATION 12/08/2023 [facility] Reason for Visit (unrecogniz ed section and content) Reason Comments Toe Pain Reason Comments Sore Throat Donna Azul RN - 05/30/2018 12:16 AM Donna Kent RN - 05/30/2018 12:12 AM Donna Kent RN - 05/30/2018 12:06 AM EDTEgalKye MD - 05/29/2018 11:50 PM EDT ED Notes (unrecognized secti on and content) PT UPDATED WAITING ON MED VERIFICATION FOR ADMIN PHARMACY CONTACTED REGARDING KEFLEX, FORENSIC IDENTIFICATION SPECIALIST STATES WILL HAVE PHARMACIST VERIFY IT SOON POSSIBLE REGISTRATION CARTSIDE; DR HARRIS BACK CARTSIDE ED PROVIDER NOTE [facility] NAME: Rocio Treadwell AGE: 17 y.o. : 2000 VISIT DATE: 05/29/2018 CSN: [id number] PCP: Eleazar Gibson MD Chief Complaint Patient presents with Toe Pain This is a 17-year-old student brought into the emergency room by his father concerning about a nonhealing left great toe injury. Patient states about a month ago he hit the toe by the nail chair while walking at home causing some avulsion of the nail. He went to his primary care physician yesterday and they nail was pulled off and dressing was applied. He is noticing some discharge with slight redness at the distal dorsal aspect skin of the toe. No fever or chills reported. He walks with a limp. Past Medical History: Diagnosis Date Attention Deficit Hyperactivity Disorder, Combined Type 04/30/2017 Insomnia 04/30/2017 On senior care drug therapy 04/30/2017 History reviewed. No pertinent surgical history. Family History Problem Relation Age of Onset Diabetes Paternal Uncle Social History Socioeconomic History Marital status: Single Spouse name: Not on file Number of children: Not on file Years of education: Not on file Highest education level: Not on file Social Needs Financial resource strain: Not on file Food insecurity - worry: Not on file Food insecurity - inability: Not on file Transportation needs - medical: Not on file Transportation needs - non-medical: Not on file Occupational History Not on file Tobacco Use Smoking status: Never Smoker Smokeless tobacco: Never Used Substance and Sexual Activity Alcohol use: No Drug use: No Sexual activity: Never Other Topics Concern Not on file Social History Narrative Not on file Previous Medications Medication Sig acetaminophen-codeine (TYLENOL-CODEINE #3) 300-30 mg per tablet Take 1 (one) tablet to 2 (two) tablets by mouth every 6 (six) hours as needed for pain (Days supply per fill: 5) . cloNIDine HCl (CATAPRES) 0.2 MG tablet Take 1 (one) tablet (0.2 mg total) by mouth at bedtime . No Known Allergies Review of Systems Musculoskeletal: Avulsion left great toenail All other systems reviewed and are negative. Patient Vitals for the past 24 hrs: BP Temp Temp src Pulse SpO2 Height Weight 05/29/18 2148 131/79 98.4 F (36.9 C) Oral 92 97 % 05/29/18 2147 5' 7 67.1 kg (148 lb) Physical Exam Constitutional: He is oriented to person, place, and time. He appears well- developed and well-nourished. No distress. Cardiovascular: Normal rate, regular rhythm, normal heart sounds and intact distal pulses. No murmur heard. Pulmonary/Chest: Effort normal and breath sounds normal. No respiratory distress. He has no wheezes. He has no rales. He exhibits no tenderness. Abdominal: Soft. Bowel sounds are normal. He exhibits no distension and no mass. There is no tenderness. Musculoskeletal: Complete avulsion of the [place] nail of the left great toe exposing the underlying tissue with nailbed growing proximally. There is clear discharge with erythema at the distal dorsal aspect of the skin with slight induration and tenderness. No purulent discharge Neurological: He is oriented to person, place, and time. Laboratory & Radiographic Imaging (if done): No results found for this visit on 05/29/18. XR Foot Left 3+ Views (Standard) Non-public Result There is no acute osseous injury or response. There is soft tissue swelling at the great toe. There appears to be some radiopaque material along the nail bed. Workstation ID: [id number] Procedures MDM Number of Diagnoses or Management Options Cellulitis of great toe, unspecified laterality: Diagnosis management comments: Patient sustained an avulsion of the left great toe which was completely removed by his primary care physician yesterday. He is coming in because he and his father concerned about some discharge and redness at the distal dorsal aspect of the skin of the toe. On exam there is induration of the skin with erythema with some tenderness concerning for cellulitis. He is placed on Keflex 500 mg 4 times a day for 10 days and advised to keep his appointment with his primary care physician next week; he states he has an appointment with his doctor Saturday. He does not reveal any obvious abnormality including fracture or hypodense area within the bone per my impression concerning for osteomyelitis. Await radiology report on this. Clinical Impression: SNOMED CT(R) 1. Cellulitis of great toe, unspecified laterality CELLULITIS OF TOE ED Disposition ED Disposition Condition Comment Discharge Stable Rocio Treadwell discharged to home/self care in stable condition. Follow-up Information Follow-up information has not been specified. Contact information for after-discharge care Follow-up information has not been specified. New Prescriptions cephALEXin (KEFLEX) 500 MG capsule Take 1 (one) capsule (500 mg total) by mouth 4 (four) times a day . Kye Harris MD 05/30/[address] KIMBERLY ISAACS PT AMBULATORY TO ROOM FROM TRIAGE Mother and patient stubbed toe approx 1 month ago. Went to [address] [place] [address] Clinic 2 days ago, toe nail was ripped off by provider. in this encounter ED PROVIDER NOTE [facility] NAME: Rocio Treadwell AGE: 18 y.o. : 2000 VISIT DATE: 04/27/2019 CSN: [id number] PCP: Eleazar Gibson MD Chief Complaint Patient presents with Sore Throat Patient presents to the emergency department with complaint of sore throat. Patient explains this started on Saturday. He is also had a cough and some nasal congestion. States he just generally does not feel well. Denies fever and chills though. Denies any body aches. States healthy otherwise. States he thinks he got his flu shot but is unsure. Has not taken anything at home to control symptoms. Past Medical History: Diagnosis Date Attention Deficit Hyperactivity Disorder, Combined Type 04/30/2017 Insomnia 04/30/2017 On senior care drug therapy 04/30/2017 History reviewed. No pertinent surgical history. Family History Problem Relation Age of Onset Diabetes Paternal Uncle Social History Socioeconomic History Marital status: Single Spouse name: Not on file Number of children: Not on file Years of education: Not on file Highest education level: Not on file Occupational History Not on file Social Needs Financial resource strain: Not on file Food insecurity Worry: Not on file Inability: Not on file Transportation needs Medical: Not on file Non-medical: Not on file Tobacco Use Smoking status: Never Smoker Smokeless tobacco: Never Used Substance and Sexual Activity Alcohol use: No Drug use: No Sexual activity: Never Lifestyle Physical activity Days per week: Not on file Minutes per session: Not on file Stress: Not on file Relationships Social connections Talks on phone: Not on file Gets together: Not on file Attends zoroastrianism service: Not on file Active member of club or organization: Not on file Attends meetings of clubs or organizations: Not on file Relationship status: Not on file Other Topics Concern Not on file Social History Narrative Not on file Previous Medications Medication Sig cloNIDine HCl (CATAPRES) 0.2 MG tablet Take 1 (one) tablet (0.2 mg total) by mouth at bedtime . [DISCONTINUED] cephALEXin (KEFLEX) 500 MG capsule Take 1 (one) capsule (500 mg total) by mouth 4 (four) times a day . No Known Allergies Review of Systems Constitutional: Negative for activity change, chills, fatigue and fever. HENT: Positive for congestion, rhinorrhea and sore throat. Negative for ear pain, hearing loss, postnasal drip and trouble swallowing. Eyes: Negative for photophobia, pain, redness and visual disturbance. Respiratory: Positive for cough. Negative for chest tightness, shortness of breath and wheezing. Cardiovascular: Negative for chest pain, palpitations and leg swelling. Gastrointestinal: Negative for abdominal pain, constipation, diarrhea, nausea and vomiting. Genitourinary: Negative for difficulty urinating, dysuria, hematuria and urgency. Musculoskeletal: Negative for arthralgias, back pain, myalgias, neck pain and neck stiffness. Skin: Negative for color change and rash. Neurological: Negative for dizziness, speech difficulty, weakness, numbness and headaches. Psychiatric/Behavioral: Negative for agitation and suicidal ideas. The patient is not nervous/anxious. Patient Vitals for the past 24 hrs: BP Temp Temp src Pulse Resp SpO2 Height Weight 04/27/19 1843 118/75 98.8 F (37.1 C) Oral 70 16 97 % 5' 10 70.8 kg (156 lb) Physical Exam Vitals signs and nursing note reviewed. Constitutional: General: He is not in acute distress. Appearance: He is well-developed and normal weight. He is not toxic-appearing. HENT: Head: Normocephalic and atraumatic. Right Ear: Tympanic membrane and ear canal normal. Left Ear: Tympanic membrane and ear canal normal. Mouth/Throat: Mouth: Mucous membranes are moist. Pharynx: Posterior oropharyngeal erythema present. No oropharyngeal exudate. Tonsils: No tonsillar exudate or tonsillar abscesses. Eyes: Conjunctiva/sclera: Conjunctivae normal. Pupils: Pupils are equal, round, and reactive to light. Neck: Musculoskeletal: Normal range of motion and neck supple. Cardiovascular: Rate and Rhythm: Normal rate and regular rhythm. Heart sounds: Normal heart sounds. Pulmonary: Effort: Pulmonary effort is normal. Breath sounds: Normal breath sounds. Musculoskeletal: Normal range of motion. General: No tenderness or deformity. Skin: General: Skin is warm and dry. Capillary Refill: Capillary refill takes less than 2 seconds. Findings: No rash. Neurological: General: No focal deficit present. Mental Status: He is alert and oriented to person, place, and time. Psychiatric: Mood and Affect: Mood normal. Behavior: Behavior normal. Laboratory & Radiographic Imaging (if done): Results for orders placed or performed during the hospital encounter of 04/27/19 Rapid Strep Screen Result Value Ref Range Strep A Ag Presumptive Negative for Group A Streptococcus Presumptive Negative for Group A Streptococcus Influenza A,B Rapid Molecular Result Value Ref Range Influenza A Not Detected Not Detected Influenza B Detected (A) Not Detected No orders to display Procedures MDM Number of Diagnoses or Management Options Diagnosis management comments: Patient is influenza positive. Educated patient and mother on influenza and Tamiflu. They are aware of the efficacy of Tamiflu window of efficacy. Patient does state that he started feeling significantly worse yesterday. Will be covered with Tamiflu still. Told to rest and push fluids. Told to take Tylenol and Motrin for any fever pains. As follow-up with health education aide or present back to the ER with any worsening or persistent symptoms. Amount and/or Complexity of Data Reviewed Clinical lab tests: ordered and reviewed Risk of Complications, Morbidity, and/or Mortality Presenting problems: low Diagnostic procedures: low Management options: low Patient Progress Patient progress: stable Clinical Impression: 1. Influenza ED Disposition ED Disposition Condition Comment Discharge Stable Rocio Treadwell discharged to home/self care in stable condition. Follow-up Information 1. Eleazar Gibson MD. Specialty: Family Medicine [address] [facility] [id number] Contact information for after-discharge care Follow-up information has not been specified. Discontinued Medications Disp Refills Start End cephALEXin (KEFLEX) 500 MG capsule 39 capsule 0 05/30/2018 04/27/2019 Sig: Take 1 (one) capsule (500 mg total) by mouth 4 (four) times a day . Class: Print Route: Oral Reason for Discontinue: Error Priscilla Garcia PA-C 04/27/191920 PT HAS HAD SORE THROAT SINCE Saturday. PT HAS HAD COUGH X 2 DAYS. documented in this encounter ED Attestation Note - Micky Guerrero MD - 04/27/2019 7:32 PM EST Miscellaneous Notes (unrecog nized section and content) ED Attestation: I was personally available for consult in the emergency department. I have reviewed the chart and agree with the documentation as recorded by the SHELLI (Advanced Practice Provider), including the assessment, treatment plan, and disposition. documented in this encounter FOR RECORDS PERTAINING TO PATIENTS WHO ARE OR HAVE BEEN ENROLLED IN A CHEMICAL DEPENDENCY/SUBSTANCEABUSE PROGRAM, SOME INFORMATION MAY BE OMITTED. This clinical summary was aggregated from multiple sources. Caution should be exercised in using it in the provision of clinical care. This summary normalizes information from multiple sources, and as a consequence, information in this document may materially change the coding, format and clinical context of patient data. In addition, data may be omitted in some cases. CLINICAL DECISIONS SHOULD BE BASED ON THE PRIMARY CLINICAL RECORDS. [employer] provides no warranty or guarantee of the accuracy or completeness of information in this document.
== END 2024-01-14 08:02 | disposition home or self-care (01) ==
LOC: ED 08:01
PROVIDERS: Emergency Provider Emergency Medicine; Visit Provider Emergency Medicine
DX: K04.7 Periapical abscess without sinus (principal); K02.9 Dental caries, unspecified; K05.10 Chronic gingivitis, plaque induced; F17.210 Nicotine dependence, cigarettes, uncomplicated
CPT/HCPCS: 99282

== ENCOUNTER 2024-10-29 20:34 | Emergency (ER) | payer OTHER, SELFPAY ==
[2024-10-29 20:35] VITALS: BP 138/61; PULSE 93; RESP 16; TEMP 36.4; O2SAT 98; BMI 21.9
--- NOTE | 2024-10-29 20:55 | RAD_ITS ---
PROCEDURE: RIGHT SHOULDER MIN 2 VIEWS 10/29/2024 REASON FOR EXAM: INJURY TECHNIQUE: RIGHT SHOULDER MIN 2 VIEWS COMPARISON: None. FINDINGS: No acute fracture or dislocation. Alignment is anatomic. Preserved joint spaces. No aggressive osseous lesion. No marked soft tissue swelling or radiopaque foreign body. RAD/Shoulder min 2 Views IMPRESSION: Unremarkable right shoulder radiographs. Reading Location: [id number]
--- NOTE | 2024-10-29 20:56 | EDS_ITS ---
HPI History of Present Illness Chief Complaint: Upper Extremity Injury Informant: patient Narrative Narrative: [id number] male here for work-related injury. Works in [employer] [place] was helping with 31 foot pipes on a trailer. States he was moving his arm got jolted pain in the shoulder. This happened 5 hours ago he finished work. No history of any shoulder injuries. No history of gastric ulcers or kidney injury. No bowel disease history. No medications taken. Prior similar symptoms: No PFSH PFSH Medical History Hydrocele Back pain Injury of head and neck Smoker Closed fracture of right distal fibula Home Medications ?Medication ?Instructions ?Recorded ?Last Taken ?Type NK 10/29/24 Unknown History Allergy/AdvReac Type Severity Reaction Status Date / Time No Known Allergies Allergy Verified 01/14/24 07:17 Surgical History History of ankle surgery History of hydrocelectomy Social History household members: significant other Smoking Status: Current every day smoker tobacco type: cigarettes alcohol intake: current alcohol intake frequency: a few times a month Alcohol type: beer substance use type: does not use ROS ROS ED Constitutional Constitutional ED: Denies fever(s) Cardiovascular Cardiovascular: Denies chest pain Respiratory/Chest Respiratory/Chest: Denies cough Gastrointestinal Gastrointestinal: Denies diarrhea or vomiting Musculoskeletal Musculoskeletal: Reports other Details: Right shoulder injury Integumentary Denies rash or wounds Neurologic Neurologic: Denies weakness EXAM Physical Exam Const Vital Signs: 10/29/24 20:35 Temperature 97.5 F L Temperature Source Oral Pulse Rate 93 Respiratory Rate 16 Blood Pressure 138/61 H Blood Pressure Mean 86 Pulse Ox 98 Positive well nourished and well developed General Appearance ED: well developed HEENT normocephalic and atraumatic Eyes General Eye ED: Yes normal appearance of both eyes Neck full ROM Resp normal respiratory effort and normal air movement Cardio regular rate and regular rhythm GI soft to palpation Extremity Extremity Narrative: Right upper extremity no clavicle tenderness. No deformities of the shoulder. Pain with internal ex rotation rotation against resistance. Negative empty can. Soft compartments. No elbow tenderness. Pulses are intact distally. Neuro oriented x3 Skin no rashes or lesions noted and no wounds MDM MDM MDM Narrative Medical decision making narrative: Interventions / MDM: Differential diagnosis: Shoulder strain, rotator cuff strain Diagnosis considered but do not suspect: N/A My EKG interpretation: N/A Imaging independently reviewed and interpreted by myself: Right shoulder x-ray 3 views: No fracture or dislocation. External documents reviewed: N/A Test considered but not ordered:N/A ED course: Clinical exam or concerns for strain of the shoulder possible rotator cuff muscles. There is no deformities for concerns for dislocation. Work- related injury will obtain x-rays. Will start Motrin. X-ray negative. Appropriate work restrictions were given. He will follow-up with occupational health. He will continue Motrin up to 600 mg every 6 hours. All questions were answered. Re-evaluation: stable Disposition discussed with patient/family/significant other: Patient and significant other Case discussed with consulting clinician: N/A This note was generated with [employer] dictation software. It may contain incorrect words, spelling, and punctuation that were not noted in checking the note before signing. Discharge Plan Triage Chief Complaint: Upper Extremity Injury ED Provider: Lei Zarate Dx/Rx/DC Orders Clinical Impression: Right shoulder strain, Work related injury Instructions: ED Shoulder Sprain Prescriptions: No Action NK Primary Care Provider: Care Physician,No Primary Referrals: Care Physician,No Primary [Primary Care Provider] - Activity Restrictions/Additional Instructions: X-ray negative. Work restrictions as given. Follow-up with occupational health for reevaluation. Continue ibuprofen up to 600 mg every 6 hours for the next 2 days then as needed. Print Language: Palauan Disposition Disposition: Home, Self Care Discharge Date/Time: 10/29/24 21:40
--- OUTSIDE RECORDS SUMMARY | 2024-10-29 21:14 | XMS RPT_ITS | CCD ---
Author Organization [facility] Informat ion Partnership [facility] Care Team Providers Care Feed In Worker Name Role Phone EgalGelyKye W Admitting Unavailable Egal, Kye W Attending Unavailable Mac, Eleazar Primary Care Provider [phone] Mac, Eleazar Primary Care Provider MAC, ELEAZAR Primary Care Unavailable EGAL, KYE SHANNAN Attending Unavailabl e MAC, ELEAZAR Primary Care Unavailable MICKY GUERRERO Attending Unavailable Care Physician, No Primary Primary Care Provider Unavailable Care Physician, No Primary Referring Provider Un available MD Ayo Patel Attending Provider MD Ayo Patel Other Provider Care Physician, No Primary Primary Care Provider Unavailable Care Physician, No Primary Referring Provider Un available MD Ayo Patel Attending Provider MD Ayo Patel Other Provider Dr. Cameron Puri Attending Provider None, No PCP Unavailable Unavailable Unavailable Unavailable Love II, Dr. Micky Herbert Admitting Unavai lable Aleman II, Dr. Micky Herbert Attending Unavai lable Aleman II, Dr. Micky Herbert Referring UnavaMD MICKY Conti Attending Unavailabl MD MICKY Gabriel Referring Unavailabl e MD MICKY ALEMAN Referring Unavailabl e MD MICKY ALEMAN Attending Unavailabl e MD MCIKY ALEMAN Referring Unavailabl e ALEMANMD MICKY Bower Attending Unavailabl e Care Physician, No Primary Primary Care Provider Unavailable Care Physician, No Primary Referring Provider Un available JANENE East Attending Provider PHYSICIAN, NONE Primary Care Physician Unavailab le PHYSICIAN, NONE Primary Care Unavailable VALERIA SHAW DO Attending Unavailable Care Physician, No Primary Primary Care Unava ilable Ayden Godinez Attending Unavailable Care Physician, No Primary Primary Care Unava ilable Arturo Mattson Attending Unavailable Care Physician, No Primary Primary Care Unava ilable Lei Zarate Attending Unavailable Rodri East Attending Unavailable Care Physician, No Primary Primary Care Unava ilable Care Physician, No Primary Referring Unava ilable MT PAUL Attending Unavailable MT PAUL Primary Care Unavailable MT PAUL Admitting Unavailable Medications Current Medications Medication Drug Class(es) Dates Sig (Normalized) Sig (Original) acetaminophen 500 mg oral tablet (4 sources) Start: 10-17-2022 take 2 tablets by mouth every four hours Acetaminophen (Tylenol Extra Strength) 500 mg tablet Active 1000 MG PO Q4H October 17, 2022 12:00am Start: 03-27-2022 take 1000 mg by mout h every six hours Acetaminophen Active 1000 MG PO EVERY 6 HOURS March 27, 2022 1:00am acetaminophen 300 mg / codeine phosphate 30 mg oral tablet (1 source) Opioid Agonist Start: 05-27-2018 End: 06-01-2018 take 1 tablet by mouth once as needed for pain, then take 2 tablets by mouth every six hours as needed for pain, then take 5 tablets by mouth as needed for pain acetaminophen-codeine (TYLENOL-CODEINE #3) 300-30 mg per tablet Indications: Ingrown toenail , Left foot pain Take 1 (one) tablet to 2 (two) tablets by mouth every 6 (six) hours as needed for pain (Days supply per fill: 5) . 10 tablet 0 05/27/2018 06/01/2018 Active acetaminophen 325 mg / oxyCODONE hydrochloride 5 mg oral tablet (4 sources) Opioid Agonist Start: 03-29-2022 take 1 tablet by mouth every four hours Oxycodone-Acetaminophen (Percocet) 5-325 mg tablet Active 1 TABLET PO Q4H 04 10March 29, 2022 Start: 01-03-2022 take 1 tablet by shira th every six hours Oxycodone-Acetaminophen (Percocet) 5-325 mg tablet Active 1 TABLET PO EVERY 6 HOURS 02 17January 03, 2022 Start: 01-03-2022 take 1 tablet by shira th every six hours Oxycodone-Acetaminophen (Percocet) 5-325 mg tablet Active 1 TABLET PO EVERY 6 HOURS 12 January 03, 2022 amoxicillin 875 mg oral tablet (2 sources) Penicillin-class Antibacterial Start: 12-31-2021 Amoxicillin Active 875 MG TWICE A DAY December 31, 2021 12:00am azithromycin 250 mg oral tablet (1 source) Macrolide Antimicrobial Start: 05-22-2023 Azithromycin Active 0 PO .COMPLEX May 22, 2023 1:00am take 500 mg today (day 1), then 250 mg for 4 days (days 2-5) PO ciprofloxacin 500 mg oral tablet (1 source) Quinolone Antimicrobial Start: 12-06-2021 take 500 mg by mouth twice daily Ciprofloxacin Hcl Active 500 MG PO TWICE A DAY December 06, 2021 12:00am clindamycin 300 mg oral capsule (2 sources) Lincosamide Antibacterial Start: 01-03-2022 take 1 capsule by mouth four times daily Clindamycin Hcl (Cleocin Hcl) 300 mg capsule Active 300 MG PO 4 TIMES DAILY 12 10January 03, 2022 12:00am cloNIDine hydrochloride 0.2 mg oral tablet (2 sources) Central alpha-2 Adrenergic Agonist Start: 01-24-2018 take 1 tablet by mouth at bedtime cloNIDine HCl (CATAPRES) 0.2 MG tablet Indications: Insomnia, unspecified type Take 1 (one) tablet (0.2 mg total) by mouth at bedtime . 90 tablet 0 01/24/2018 Active dextromethorphan hydrobromide 15 mg / guaiFENesin 400 mg / pseudoephedrine hydrochloride 60 mg oral tablet (1 source) alpha-Adrenergic Agonist, Uncompetitive B-ppmgwm-C-aspartate Receptor Antagonist, Sigma-1 Agonist Start: 05-22-2023 take 4 tablets by mouth every twenty-four hours Pseudoephedrine-D m-Guaifenesin (Capmist Dm) 60-15-400 mg tablet Active 1 TABLET PO EVERY 4-6 HOURS May 22, 2023 1:00am do not exceed 4 doses per 24 hrs doxycycline monohydrate 100 mg oral capsule (1 source) Tetracycline-class Drug Start: 06-27-2022 take 100 mg by mouth twice daily Doxycycline Monohydrate Active 100 MG PO TWICE A DAY June 27, 2022 12:00am ibuprofen 200 mg oral tablet (6 sources) Nonsteroidal Anti-inflammatory Drug Start: 10-17-2022 take 800 mg by mouth every eight hours Ibuprofen Active 800 MG PO Q8H October 17, 2022 12:00am Start: 03-27-2022 take 400 mg by mouth every eight hours Ibuprofen Active 400 MG PO Q8H March 27, 2022 1:00am Start: 08-03-2021 take 600 mg by mouth every six hours as needed Ibuprofen Active 600 MG PO EVERY 6 HOURS NEEDED August 03, 2021 1:51am naproxen 500 mg oral tablet (2 sources) Nonsteroidal Anti-inflammatory Drug Start: 04-29-2023 take 500 mg by mouth twice daily Naproxen Active 500 MG PO TWICE A DAY April 29, 2023 1:00am oseltamivir 75 mg oral capsule (1 source) [...] End: 05-30-2018 cephALEXin (KEFLEX) capsule 500 mg cyclobenzaprine hydrochloride 10 mg oral tablet (7 sources) Muscle Relaxant Start: 10-02-2022 End: 10-17-2022 take 10 mg by mouth three times daily Cyclobenzaprine Discontinued 10 MG PO THREE TIMES A DAY October 02, 2022 12:00am October 17, 2022 2:41pm Start: 08-03-2021 take 10 mg by mouth three times daily Cyclobenzaprine Active 10 MG PO THREE TIMES A DAY August 03, 2021 1:51am levoFLOXacin 500 mg oral tablet (3 sources) Quinolone Antimicrobial Start: 10-22-2022 take 1 tablet by mouth once daily levoFLOXacin 500 MG Oral Tablet Take 1 tablet daily Quantity: 5 Refills: 0 Ordered: 22-Oct-2022 Micky Aleman II, MD Start : 22-Oct-2022 Active predniSONE 50 mg oral tablet (3 sources) Start: 10-05-2022 End: 10-17-2022 take 50 mg by mouth once daily Prednisone Discontinued 50 MG PO DAILY October 05, 2022 12:00am October 17, 2022 2:41pm tiZANidine 4 mg oral tablet (3 sources) Central alpha-2 Adrenergic Agonist Start: 10-05-2022 End: 10-17-2022 take 4 mg by mouth every eight hours Tizanidine Discontinued 4 MG PO Q8H October 05, 2022 12:00am October 17, 2022 2:41pm traMADol hydrochloride 50 mg oral tablet (5 sources) Opioid Agonist Start: 10-02-2022 End: 10-17-2022 take 50 mg by mouth every six hours Tramadol Discontinued 50 MG PO EVERY 6 HOURS October 02, 2022 12:00am October 17, 2022 2:41pm Problems Active Problems Problem Classification Problem Date Documented Date Episodic/Chronic Attention-deficit conduct and disruptive behavior disorders (2 sources) Attention deficit hyperactivity disorder, combined type; Translations: [Attention Deficit Hyperactivity Disorder, Combined Type] Onset: 04-30-2017 04-30-2017 Chronic Chronic obstructive pulmonary disease and bronchiectasis (7 sources) Purulent bronchitis; 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] 06-27-2022 Chronic Disorders of teeth and jaw (1 source) Other specified disorders of teeth and supporting structures; Translations: [Other specified disorders of teeth and supporting structures] Onset: 02-04-2024 Episodic E Codes: Fall (5 sources) Fall; Translations: [Unspecified fall, initial encounter] 10-02-2022 Episodic Fracture of lower limb (18 sources) Closed fracture of distal fibula ; Translations: [Other fracture of upper and lower end of right fibula, initial encounter for closed fracture] Episodic Genitourinary symptoms and ill-defined conditions (12 sources) Blood in urine; Translations: [Hematuria, unspecified] 05-24-2021 Episodic Immunizations and screening for infectious disease (2 sources) Contact with and (suspected) exposure to other viral communicable diseases; Translations: [Contact with or suspected exposure to other viral communicable disease] 05-22-2023 Episodic Influenza (1 source) Influenza; Translations: [Influenza] Episodic Open wounds of extremities (11 sources) Puncture wound of left foot; Translations: [Puncture wound without foreign body, left foot, initial encounter] 12-14-2021 Episodic Open wounds of extremities (11 sources) Puncture wound of right foot; Translations: [Puncture wound without foreign body, right foot, initial encounter] 12-14-2021 Episodic Other injuries and conditions due to external causes (1 source) Injury of right ankle; Translations: [Unspecified injury of right ankle, initial encounter] 07-02-2023 Episodic Other lower respiratory disease (1 source) Cough; Translations: [Cough, unspecified] Onset: 12-05-2023 Episodic Other lower respiratory disease (1 source) Hemoptysis; Translations: [Hemoptysis] Onset: 12-05-2023 Episodic Other male genital disorders (20 sources) Disorder of male genital organ; Translations: [Hydrocele, unspecified] 05-25-2021 Episodic Other male genital disorders (6 sources) Pain of right testicle; Translations: [Right testicular pain] 07-01-2022 Episodic Other male genital disorders (2 sources) Hydrocele, unspecified; Translations: [Hydrocele, unspecified] Onset: 10-16-2022 Episodic Other nervous system disorders (2 sources) Paresthesia of right upper limb; Translations: [Paresthesia of skin] 04-29-2023 Episodic Other nutritional; endocrine; and metabolic disorders (12 sources) Abnormal weight loss; Translations: [Abnormal weight loss] 05-24-2021 Episodic Other upper respiratory infections (2 sources) Acute upper respiratory infection; Translations: [Acute upper respiratory infection, unspecified] 05-22-2023 Episodic Residual codes; unclassified (7 sources) Tobacco use and exposure - finding; Translations: [Tobacco use] 06-27-2022 Episodic Skin and subcutaneous tissue infections (10 sources) Cellulitis of toe; Translations: [Abscess of face] 01-11-2022 Episodic Spondylosis; intervertebral disc disorders; other back problems (2 sources) Other intervertebral disc displacement, lumbar region; 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] 10-17-2022 Chronic Spondylosis; intervertebral disc disorders; other back problems (17 sources) Acute low back pain; Translations: [Acute low back pain] 08-11-2021 Episodic Superficial injury; contusion (5 sources) Contusion of back; Translations: [Contusion of unspecified back wall of thorax, initial encounter] 10-02-2022 Episodic Unclassified (2 sources) Drug therapy finding; Translations: [On fdc drug therapy] Onset: 04-30-2017 04-30-2017 Past or Other Problems Problem Classification Problem Date Documented Da te Episodic/Chronic Other non-traumatic joint disorders (2 sources) Pain in elbow; Translations: [Elbow pain, left] Onset: 02-24-2016 Resolved: 09-06-2017 09-06-2017 Episodic Other non-traumatic joint disorders (1 source) Pain in right elbow; Translations: [Pain in right elbow] Onset: 05-02-2023 Episodic Residual codes; unclassified (2 sources) Insomnia; Translations: [Insomnia] Onset: 04-30-2017 04-30-2017 Episodic Sprains and strains (15 sources) Sprain of ankle; Translations: [Sprain of unspecified ligament of right ankle, initial encounter] Onset: 07-08-2023 12-14-2021 Episodic Results Test Name Value Interpretation Reference Range Facility GROUP A STREPTOCOCCUS BY PCR [CCL]on 05-19-2024 RESULT CRITICAL? NO [facility] Comment on above: Performed By: #### 2 [id number] #### [place] [address] Group A Strep PCR Not detected Normal Not detected [facility] Comment on above: Result Comment: [place] [address] Enoch Crump III, M.D. [id number] Performed By: #### 2 [id number] #### [place] [id number] ED MED ADMINISTRATION DETAIL on 05-17-2024 ED MED ADMINISTRATION DETAIL Associate Professor [place] [address] [id number] 05/17/2024 Patient: ROCIO TREADWELL Sex: Male : 2000 Age: 23y MEASUREMENTS: Wt: 61.2 kg, Ht/Dejon: 69.0 in, BMI: 19.94 ALLERGIES: No known drug allergies Medication Ordered Medication Administration Date/Time 1 of 1 [facility] ED NURSES CLINICAL NOTEon ED NURSES CLINICAL NOTE Nurse Narrative Nurse Clinical Narrative [address] [address] [id number] 05/17/2024 Patient: ROCIO TREADWELL Sex: Male : 2000 Age: 23y Primary Insurance: [employer] OUTPATIENT Policy Number: [id number] Group Number: [id number] Subscriber: Other Disposition: Discharge to Home Disposition Decision Time: 14:49 05/17/2024 Departure Time: 14:52 05/17/2024 TRIAGE Arrived by private vehicle. Historian: (patient). Primary physician (None). Primary care physician not notified of patient's arrival. Triage time: 13:05/17/2024. Acuity: LEVEL 3. Chief Complaint: FEVER and MUSCLE ACHES (Sore throat). The patient has had a sore throat, a cough and headache and nausea. SEPSIS SCREEN: NEGATIVE. SIRS criteria negative: heart rate greater than 90. -- 13:05/17/24 JIGNA Avila R.N. 13:05/17/24. BP: 123/54 MAP: 77. HR: 110. RR: 16. O2 saturation: 95% on room air. Temperature: 99.1 F. Pain level now 7/10. (Throat). -- 13:05/17/24 JIGNA Avila R.N. Measurements: 13:05/17/24 Wt: 61.2 kg, Ht/Dejon: 69.0 in, BMI: 19.94 -- 13:05/17/24 JIGNA Avila R.N. Medications: no known home medications -- 13:05/17/24 JIGNA Avila R.N. 1 of 3 Nurse Narrative Allergies: no known drug allergies -- 13:05/17/24 JIGNA Avila R.N. Problems: no known problem -- 13:29 05/17/24 JIGNA Avila R.N. ADDITIONAL SURGERIES: Ankle. Right -- 13:28 05/17/24 JIGNA Avila R.N. Testicle. Right -- 14:15 05/17/24 JIGNA Avila R.N. History 13:25 05/17/24. SOCIAL HX: Never smoker. No alcohol use or drug use. The patient has not traveled outside the [place] Infectious disease exposure: No infectious disease exposure. ABUSE ASSESSMENT: The patient answered yes to the question(s) Do you feel safe in your home? and no to the question(s) Are you afraid to go home?. SELF HARM ASSESSMENT: Self harm assessment was performed. The patient answered no to the question(s) Have you recently felt down, depressed, or hopeless? and Do you have thoughts of harming or killing yourself?. FALL RISK ASSESSMENT: Fall risk assessment completed. No risk factors identified. -- 13:30 05/17/24 JIGNA Avila R.N. PHYSICAL ASSESSMENT 13:58 05/17/24. ( Pt arrives ambulatory to ER#2 c/o sorethroat, body aches that started yesterday and fever today. Pt is afebrile on arrival but reports has taken tylenol [employer]. PTs tonsils are non-swollen, non-reddened, states burning pain from the throat down to the chest.). GENERAL / NEURO / PSYCH: Alert. Oriented X 4. Appears in no acute distress. HEENT: Mucous membranes are pink. RESPIRATORY: Respirations not labored. SKIN: Skin intact. Skin is warm and dry. Normal skin turgor. -- 14:03 05/17/24 JIGNA Rodriguez R.N. 2 of 3 Nurse Narrative NURSING PROGRESS NOTES 13:50 05/17/24. Flu swab obtained. Throat swab obtained. -- 13:53 05/17/24 JIGNA Rodriguez R.N. DISPOSITION / DISCHARGE Departure time: 14:52 05/17/2024. Condition at departure: improved. Discharge instructions provided and reviewed with the patient. Reviewed referral to a primary care physician. Work note given. Patient verbalized understanding. Written instructions provided in Hebrew. The patient was discharged by the physician. The patient was discharged home. The patient left ambulatory and via private vehicle. Patient driving. -- 16:07 05/17/24 EST Kelly Rodriguez R.N. (Electronically signed by Kelly Rodriguze R.N. 05/17/24 16:07:37 EST) Generated by [facility] 3 of 3 [facility] ED ORDER SHEET (CPOE ONLY)on 05-17-2024 ED ORDER SHEET (CPOE ONLY) Order Sheet Order Sheet [address] [address] [id number] 05/17/2024 Patient: ROCIO TREADWELL Sex: Male : 2000 Age: 23y MEASUREMENTS: Wt: 61.2 kg, Ht/Dejon: 69.0 in, BMI: 19.94 ALLERGIES: No known drug allergies MEDICATION/IV/DRIP/FLUID ORDERS Order Description Priority Entered Acknowledged Completed LAB ORDERS Order Description Priority Entered Acknowledged Collected Completed Flu Swab (Influenzae Stat 13:38 05/17/2024 13:39 05/17/2024 13:52 05/17/2024 AAg) Stat Sameera Molina Shauna Ewing, R.N. R.N. Rapid Strep Screen Stat Stat 13:38 05/17/2024 13:39 05/17/2024 13:52 05/17/2024 Sameera Molina Shauna Ewing, R.N. R.NJessica DIAGNOSTIC STUDY ORDERS Order Description Priority Entered Acknowledged Completed STAFF ORDERS Order Description Priority Entered Acknowledged Collected Completed [Electronically signed by [place] M.D. (05/17/2024 17:14 EST)] 1 of 1 [facility] ED PHYSICIAN CLINICAL REPORT on 05-17-2024 ED PHYSICIAN CLINICAL REPORT Narrative Physician Clinical Narrative [address] [address] [id number] 05/17/2024 Patient: ROCIO TREADWELL Sex: Male : 2000 Age: 23y Primary Insurance: [employer]PATIENT Policy Number: [id number] Group Number: [id number] Subscriber: Other Disposition: Discharge to Home Disposition Decision Time: 14:49 05/17/2024 Departure Time: 14:52 05/17/2024 Measurements Wt: 61.2 kg, Ht/Dejon: 69.0 in, BMI: 19.94 Initial Vital Sign Measured Time BP MAP HR RR O2Sat ETCO2 Temp Pain GCS RTS 13:30 05/17/2024 123/54 77 110 16 95% RA 99.1 F 7 Time Seen: 13:31 05/17/2024. Arrived- By private vehicle. Historian- patient. HISTORY OF PRESENT ILLNESS Chief Complaint: COUGH, SORE THROAT, CHILLS, MUSCLE ACHES and FLU. This started last night and is still present and worsening. The illness is described as moderate. The patient has had a cough, chest discomfort, a sore throat, fever and muscle aches. No sputum production, difficulty breathing, chest pain or hoarseness. No nasal congestion or discharge, sinus pressure, sinus drainage or ear pain. Additional history - The patient has had contact with a sick individual. Similar symptoms previously. None. 1 of 6 Narrative REVIEW OF SYSTEMS NEUROLOGICAL: The patient has had a headache. GI: The patient has had nausea. No vomiting, diarrhea or abdominal pain. CVS: No pedal edema or calf pain. : No difficulty with urination. SKIN: No skin rash. ENDO/HEME/LYMPH: No enlarged lymph nodes. EYES: No eye discomfort. ALLERGY/IMMUNO: No hay fever. PAST HISTORY See nurses notes. no known problem Surgeries: Ankle: Body Site Right Testicle: Body Site Right Medications: no known home medications Allergies: no known drug allergies SOCIAL HISTORY Does not use tobacco. No alcohol use or drug use. ADDITIONAL NOTES The nursing notes have been reviewed. PHYSICAL EXAM Vital Signs: Have been reviewed. Appearance: Alert. No acute distress. Eyes: Pupils equal, round and reactive to light. Eyes normal inspection. ENT: Ears normal. Nose normal. Mild generalized pharyngeal erythema. No pharyngeal vesicles or ulcerations. No right tonsillar exudate or left tonsillar exudate. Uvula midline. No mouth ulcerations, muffled or hoarse voice 2 of 6 Narrative or trismus. Neck: Normal inspection. Neck supple. CVS: Normal heart rate. Heart sounds normal. Pulses normal. Respiratory: No respiratory distress. Painless inspiration. Breath sounds normal. Abdomen: Soft and nontender. No organomegaly. Back: Normal inspection. Skin: Skin warm and dry. Normal skin color. No rash. Normal skin turgor. Neuro: Oriented X 3. LABS, X-RAYS, AND EKG Laboratory Tests: INFLUENZA VIRUS RAPID A/B Final JOSEPH: 05/17/2024 13:50:00 EST MsgRcvd: 05/17/2024 14:19 EST Lab Test Result Reference Status Received Comments POSITIVE 05/17/2024 INFLUENZA A [NEGATIVE Final 14:19 EST Abnormal NEGATIVE 05/17/2024 INFLUENZA B Final [NEGATIVE 14:19 EST INTERNAL 05/17/2024 PASS Final NEG QC 14:19 EST INTERNAL 05/17/2024 PASS Final POS QC 14:19 EST EXTERNAL QC 05/17/2024 YES Final DONE? 14:19 EST 3 of 6 Narrative Lab Test Result Reference Status Received Comments A NEGATIVE TEST RESULT DOES NOT EXCLUDE INFECTION WITH INFLUENZA A OR B. THEREFORE, THE RESULTS OBTAINED FROM THIS FLU TEST SHOULD BE USED IN CONJUCTION WITH CLINICAL FINDINGS TO MAKE AN ACCURATE DIAGNOSIS. A POSITIVE RESULT DOES NOT RULE OUT CO-INFECTIONS WITH OTHER PATHOGENS OR IDENTIFY ANY SPECIFIC INFLUENZA A VIRUS 05/17/2024 SEND TO IC? YES Final SUBTYPE.CO-INFECTION 14:19 EST WITH INFLUENZA A AND B IS RARE. IT IS RECOMMENDED THAT DUAL POSITIVE RESULTS BE CONFIRMED BY VIRAL CULTURE OR AN FDA-CLEARED INFLUENZA A AND B MOLECULAR ASSAY. INDIVIDUALS WHO HAVE 4 of 6 RECEIVED NASALLY ADMINISTERED INFLUENZA Narrative Lab Test Result Reference Status Received Comments { CALLED TO LUPIS PAYNE BY KG AT RESULT 05/17/2024 YES Final 1419 CRITICAL? 14:19 EST { READ BACK BY LUPIS PAYNE RA AT 1418 RAPID STREP Final JOSEPH: 05/17/2024 13:50:00 EST MsgRcvd: 05/17/2024 14:04 EST Lab Test Result Reference Status Received Comments NEG:GRP A 05/17/2024 14:04 Rapid Strep DONNA - NEG Final STREP EST 05/17/2024 14:04 INTERNAL QC PASS Final EST EXTERNAL QC 05/17/2024 14:04 YES Final DONE? EST PROGRESS AND PROCEDURES MEDICAL DECISION MAKING: MEDICAL COMPLEXITY MODERATE. Pertinent clinical findings include the presentation and the history. Serious conditions are unlikely to be a cause for the patient's findings. The diagnosis appears to be clear. Disposition: Condition: stable. Dischar (more content not included)... [facility] ED SUPER BILLon 05-17-2024 ED SUPER BILL [address] [address] [id number] 05/17/2024 Patient: ROCIO TREADWELL Sex: Male : 2000 Age: 23y Item Professional Category Description Facility Code Code Quantity Fee Total Nurse/E/M EMERGENCY 068659 1 $0.00 $0.00 DEPARTMENT VISIT MODERATE SEVERITY (98279-24) Grand Total $0.00 Providers [place] M.D. Chief Complaint COUGH, SORE THROAT, CHILLS, MUSCLE ACHES and FLU. Principal Diagnosis Influenza type A with pharyngitis. ICD-10 Codes 1 of 2 [facility] J11.1: Influenza due to unidentified influenza virus with other respiratory manifestations J02.9: Acute pharyngitis, unspecified 2 of 2 [facility] ED VISIT SUMMARYon ED VISIT SUMMARY Visit Overview Visit Overview [address] [address] [id number] 05/17/2024 Patient: ROCIO TREADWELL Sex: Male : 2000 Age: 23y 05/17/2024 05:14 PM EST ED Arrival:13:25 05/17/2024 EST Status: Recent Travel:no Language:eng Adv Directive: Isolation Status: Ethnicity:N Fall Risk:no risk Infectious Disease Exposure:no Measurements:5'9 / 175.3 Self-Harm Status:risk Sepsis Screen:negative cm 135.0 lb / 61.2 kg Chief Complaint:FEVER, MUSCLE ACHES, (None), and (Sore throat) ALLERGIES No Known Drug Allergies HOME MEDICATIONS None PAST MEDICAL HISTORY / PROBLEMS None See nurses notes 1 of 3 Visit Overview PAST SURGICAL HISTORY Ankle. Right SOCIAL HISTORY Smoking status: No Alcohol use: No Drug use: No ED COURSE MEDICATIONS GIVEN IN EMERGENCY DEPARTMENT IV SITE INFORMATION INTAKE OUTPUT REASSESMENT (most recent) 13:58 05/17/24. ( Pt arrives ambulatory to ER#2 c/o sorethroat, body aches that started yesterday and fever today. Pt is afebrile on arrival but reports has taken tylenol [employer]. PTs tonsils are non-swollen, non-reddened, states burning pain from the throat down to the chest.). GENERAL / NEURO / PSYCH: Alert. Oriented X 4. Appears in no acute distress. HEENT: Mucous membranes are pink. RESPIRATORY: Respirations not labored. SKIN: Skin intact. Skin is warm and dry. Normal skin turgor. VITAL SIGNS First Vitals Last Vitals Temp 13:30 05/17/24 99.1 F Temp 13:30 05/17/24 99.1 F BP 13:30 05/17/24 123/54 BP 13:30 05/17/24 123/54 HR 13:30 05/17/24 110 HR 13:30 05/17/24 110 RR 13:30 05/17/24 16 RR 13:30 05/17/24 16 O2 Sat 13:30 05/17/24 95% RA O2 Sat 13:30 05/17/24 95% RA Pain 13:30 05/17/24 7 Pain 13:30 05/17/24 7 ETCO2 13:30 05/17/24 ETCO2 13:30 05/17/24 GCS 13:30 05/17/24 GCS 13:30 05/17/24 2 of 3 Visit Overview First Vitals Last Vitals RTS 13:30 05/17/24 RTS 13:30 05/17/24 PROCEDURES NURSING INTERVENTIONS LABS / STUDIES LABS / STUDIES ORDERED Flu Swab (Influenzae AAg) Rapid Strep Screen CLINICAL IMPRESSION INFLUENZA TYPE A WITH PHARYNGITIS 3 of 3 Normal [facility] ED VITALS FLOW SHEETon 05-17 ED VITALS FLOW SHEET Vitals Vital Sign Flow Sheet [address] [place] [address] [id number] 05/17/2024 Patient: ROCIO TREADWELL Sex: Male : 2000 Age: 23y Measurements Wt: 61.2 kg, Ht/Dejon: 69.0 in, BMI: 19.94 Measured Time BP MAP HR RR O2Sat ETCO2 Temp Pain GCS RTS 13:30 05/17/2024 123/54 77 110 16 95% RA 99.1 F 7 1 of 1 Normal [facility] INFLUENZA VIRUS RAPID A/Bon 05-17-2024 INFLUENZA VIRUS RAPID A/B INFLUENZA A POSITIVE INFLUENZA B NEGATIVE INTERNAL NEG QC PASS INTERNAL POS QC PASS EXTERNAL QC DONE? YES SEND TO IC? YES A NEGATIVE TEST RESULT DOES NOT EXCLUDE [...] FOR UP TO THREE DAYS. RESULT CRITICAL? YES { CALLED TO LUPIS PAYNE BY KG AT 1419 { READ BACK BY LUPIS PAYNE RA AT 1418 [facility] Comment on above: Performed By: #### [id number] ####[facility],[address] [place] [address] RAPID STREPon 05-17-2024 S. pyogenes Ag IA Ql (Unsp spec) Rapid Strep NEG:GRP A STREP INTERNAL QC PASS EXTERNAL QC DONE? YES [facility] Comment on above: Performed By: #### 2 [id number] #### [facility],[address] [place] [address] Emergency Department Summary on 01-14-2024 Emergency Department Summary [facility] Medical Records Department [address] [place] [address] Emergency Department Summary 01/14/24 MR#: [id number] Acct: [id number] Name: ROCIO TREADWELL Rep #: [id number] : 2000 23 From: Ayden Godinez MD PCP: Care Physician,No Primary Status:PRE ER Location: ED HPI History of Present Illness Chief Complaint: Dental Informant: patient Onset/Context/Timing Onset: Today and Yesterday Context: Gradual Onset Timing: Continuous Current Severity: Moderate Maximum Severity: Moderate Associated Symptoms Assocated Symptom - Dental: jaw swelling Narrative Narrative: 23-year-old male atraumatic right lower jaw swelling and pain since yesterday. Able to swallow. No fever. Prior history of dental infection. Prior similar symptoms: Yes Recent Illness/Hospitalization: No PFSH PFS Medical History Hydrocele Back pain Injury of head and neck Smoker Closed fracture of right distal fibula Home Medications ???Medication ???Instructions ???Recorded ???Last Taken ???Type acetaminophen 500 mg tablet 1,000 mg PO Q4H PRN fever or pain 10/17/22 Unknown History (Tylenol Extra Strength) ibuprofen 200 mg tablet 800 mg PO Q8H PRN fever or pain 10/17/22 Unknown History naproxen 500 mg tablet 500 mg PO BID #14 tabs 04/29/23 Unknown Rx azithromycin 250 mg tablet See Rx Instructions PO .COMPLEX #6 05/22/23 Unknown Rx tabs pseudoephedrine 60 mg-DM 15 1 tab PO Q4-6H PRN cold symptoms 05/22/23 Unknown Rx mg-guaifenesin 400 mg tablet #20 tabs (Capmist DM) penicillin V potassium 500 mg 500 mg PO 4X/DAY #40 tabs 01/14/24 Unknown Rx tablet Allergy/AdvReac Type Severity Reaction Status Date / Time No Known Allergies Allergy Verified 01/14/24 07:17 Surgical History History of ankle surgery History of hydrocelectomy Social History household members: significant other Smoking Status: Current every day smoker tobacco type: cigarettes alcohol intake: current alcohol intake frequency: a few times a month Alcohol type: beer substance use type: does not use ROS ROS ED ROS Narrative Denies recent illness. Constitutional Constitutional ED: Denies chills or fever(s) Eyes Eyes: Denies blurry vision ENT ENT ED: Denies ear pain Cardiovascular Cardiovascular: Denies chest pain Respiratory/Chest Respiratory/Chest: Denies cough or dyspnea Gastrointestinal Gastrointestinal: Denies abdominal pain Genitourinary Genitourinary ED: Denies dysuria or hematuria Musculoskeletal Musculoskeletal: Denies arthralgias Integumentary Denies abscess Neurologic Neurologic: Denies headache(s) Psychiatric Psychiatric: Denies anxiety or depression Endocrine Endocrinology: Denies cold intolerance Hematologic/Lymphatic Hematologic/Lymphatic: Denies easy bleeding Allergic/Immunologic Allergic/Immunologic ED: Denies mouth swelling EXAM Physical Exam Narrative Exam Narrative: 21-year-old male vital signs stable afebrile. Sitting upright in bed. Significant other at bedside. H EENT exam pupils are reactive light. Moist mucous membranes. Posterior pharynx unre markable. Patient has very poor dentition. Multiple cavities. Eroded teeth. On his right lower jaw has a dental infection with inflammation of the gum consistent with gingivitis. No drainable abscess. No trismus. He is able to open close his mouth. No trouble swallowing or breathing. No Gus's angina. Neck nontender no lymphadenopathy. Lungs clear. Heart regular rhythm rate about 65 no murmur. Abdomen soft nontender. Moving all 4 extremities. Awake and alert. No focal motor deficits. Const Vital Signs: 01/14/24 07:15 Temperature 97.8 F Temperature Source Oral Pulse Rate 65 Respiratory Rate 16 Blood Pressure 129/76 H Blood Pressure Mean 93 Pulse Ox 100 Oxygen Delivery Method Room Air Positive well nourished and well developed; Negative for obese, cachectic, contractures or unkempt General Appearance ED: well developed and NAD; Negative for unkempt, cachectic or contractures Nutritional Appearance: Negative for cachectic or obese HEENT Negative for trauma or tenderness Mouth ED: Yes oral and palatal mucosa abnormal Mouth: oral and palatal mucosa abnormal Teeth and Gingiva: abnormal tooth and associated gingiva, caries, gingiva abnormal, poor dentition and teeth discoloration Throat: posterior oropharynx normal Eyes EOMs intact bilaterally Neck no lymphadenopathy, supple and no JVD Lymph Lymphatic: no lymphadenopathy noted Chest Wall inspection of chest normal and palpation of chest normal Resp normal respiratory effort, no retractions and clear to auscul (more content not included)... Normal [facility] .Auto Diffon 12-05-2023 Basophil, Absolute 0.1 10 3/mcL Normal 0.0-0.2 [facility] Comment on above: Performed By: #### C KIKE, TORI, ANEU, ADIFF #### [address] [address] Lymphocyte, Absolute 2.7 10 3/mcL Normal 0.8-3.9 [facility] Comment on above: Performed By: #### TORI SCHERER ANEU, ADIFF #### [address] [address] Monocyte, Absolute 0.7 10 3/mcL Normal 0.2-1.0 [facility] Comment on above: Performed By: #### TORI SCHERER ANEU, ADIFF #### [address] [address] .Auto DiffOrdered By: SYSTEM SYSTEM on 12-05-2023 Basophils/100 WBC (Bld) 0.6 % Normal 0.0-2.5 [facility] Comment on above: Performed By: #### TORI SCHERER ANEU, ADIFF #### [address] [address] Eosinophil, Absolute 0.0 103/mcL Normal 0.0-0.4 [facility] Comment on above: Performed By: #### TORI SCHERER ANEU, ADIFF #### [address] [address] Eosinophils/100 WBC (Bld) 0.5 % Normal 0.0-7.0 [facility] Comment on above: Performed By: #### TORI SCHERER, GUILLE, ADIFF #### [address] [address] Lymphocytes/100 WBC (Bld) 29.9 % Normal 10.0-50.0 [facility] Comment on above: Performed By: #### TORI SCHERER, ANEU, ADIFF #### [address] [address] Monocytes/100 WBC (Bld) 8.4 % Normal 1.7-13.0 [facility] Comment on above: Performed By: #### TORI SCHERER, GUILLE, ADIFF #### [address] [address] Neutrophils/100 WBC (Bld) 60.6 % Normal 37.0-80.0 [facility] Comment on above: Performed By: #### TORI SCHERER, GUILLE, ADIFF #### [place] [id number] .MDWon 12-05-2023 Monocyte Distribution Width 17.44 Normal 0.00-20.00 [facility] Comment on above: Result Comment: For ED adult patients suspected of sepsis, MDW<=20.0 does not rule out sepsis or risk of sepsis Performed By: #### TORI SCHERER ANEU, ADIFF #### [place] [address] .NEUABSon 12-05-2023 Neutrophil, Absolute 5.4 10 3/mcL Normal 2.9-6.2 [facility] Comment on above: Performed By: #### TORI SCHERER ANEU, ADIFF #### [place] [address] CBCOrdered By: SYSTEM SYSTEM on 12-05-2023 Erythrocyte distribution width (RBC) [Ratio] 12.8 % Normal 11.5-14.5 [facility] Comment on above: Performed By: #### TORI SCHERER ANEU, ADIFF #### [place] [address] Hematocrit (Bld) [Volume fraction] 40.9 % Low 42.0-52.0 [facility] Comment on above: Performed By: #### TORI SCHERER ANEU, ADIFF #### [place] [address] MCH (RBC) [Entitic mass] 30.2 pg Normal 27.0-31.2 [facility] Comment on above: Performed By: #### TORI SCHERER ANEU, ADIFF #### [place] [address] MCHC 34.7 G/dL Normal 31.8-35.4 [facility] Comment on above: Performed By: #### TORI SCHERER ANEU, ADIFF #### [place] [address] MCV (RBC) [Entitic vol] 87.0 fL Normal 80.0-94.0 [facility] Comment on above: Performed By: #### TORI SCHERER, GUILLE, ADIFF #### [address] [address] Platelet mean volume (Bld) [Entitic vol] 7.6 fL Normal 7.4-10.4 [facility] Comment on above: Performed By: #### TORI SCHERER, GUILLE, ADIFF #### [place] [address] CBCon 12-05-2023 Hgb 14.2 G/dL Normal 14.0-18.0 [facility] Comment on above: Performed By: #### TORI SCHERER, GUILLE, ADIFF #### [place] [address] Platelet 293 10 3/mcL Normal 130-400 [facility] Comment on above: Performed By: #### TORI SCHERER, GUILLE, ADIFF #### [place] [address] RBC 4.70 10 6/mcL Normal 4.04-6.13 [facility] Comment on above: Performed By: #### TORI SCHERER, GUILLE, ADIFF #### [place] [address] WBC 8.9 10 3/mcL Normal 4.6-10.8 [facility] Comment on above: Performed By: #### TORI SCHERER, ANEU, ADIFF #### [place] [address] LABORATORYOrdered By: SYSTEM SYSTEM on 12-05-2023 Basophils [...] the resident findings and interpretation. Interpreted by: Ean Temple MD Preliminary Report By: [place] Electronically signed By Ean Temple MD Dictated Date: 12/05/2023 9:28:18 PM Prelim Date: 12/05/2023 9:31:33 PM Sign Date: 12/05/2023 9:59:10 PM Ordering Provider: VALERIA Felix [facility] Emergency Department Summary on 07-02-2023 Emergency Department Summary [facility] Medical Records Department [address] [place] [address] Emergency Department Summary 07/02/23 MR#: [id number] Acct: [id number] Name: ROCIO TREADWELL Rep #: [id number] : 2000 22 From: Lei Cox PCP: Care Physician,No Primary Status:DEP ER Location: ED HPI History of Present Illness Chief Complaint: Lower Extremity Injury Informant: patient Narrative Narrative: 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 No falls or head injuries. He will finish work yesterday and today. History of fracture a year ago with hardware to the lateral aspect ankle. Took Tylenol prior to arrival. No foot tenderness. No paresthesias. Prior similar symptoms: Yes PFSH PFSH Medical History Back pain Closed fracture of right distal fibula Hydrocele Injury of head and neck Smoker Home Medications acetaminophen 500 mg tablet (Tylenol Extra Strength) 1,000 mg PO Q4H PRN fever or pain 10/17/22 [History Last Taken Unknown] ibuprofen 200 mg tablet 800 mg PO Q8H PRN fever or pain 10/17/22 [History Last Taken Unknown] naproxen 500 mg tablet 500 mg PO BID #14 tabs 04/29/23 [Rx Last Taken Unknown] azithromycin 250 mg tablet See Rx Instructions PO .COMPLEX #6 tabs 05/22/23 [Rx Last Taken Unknown] pseudoephedrine 60 mg-DM 15 mg-guaifenesin 400 mg tablet (Capmist DM) 1 tab PO Q4-6H PRN cold symptoms #20 tabs 05/22/23 [Rx Last Taken Unknown] Allergy/AdvReac Type Severity Reaction Status Date / Time No Known Allergies Allergy Verified 07/02/23 16:45 Surgical History History of ankle surgery History of hydrocelectomy Social History household members: significant other Smoking Status: Current every day smoker tobacco type: cigarettes alcohol intake: current alcohol intake frequency: a few times a month Alcohol type: beer substance use type: does not use ROS ROS ED Constitutional Constitutional ED: Denies chills, fever(s) or sweats Eyes Eyes: Denies change in vision ENT ENT ED: Denies dysphagia or sore throat Cardiovascular Cardiovascular: Denies chest pain, leg edema, palpitations or racing heartbeat Respiratory/Chest Respiratory/Chest: Denies cough, dyspnea or dyspnea on exertion Gastrointestinal Gastrointestinal: Denies abdominal pain, diarrhea, nausea or vomiting Genitourinary Genitourinary ED: Denies dysuria, hematuria or urinary frequency Musculoskeletal Musculoskeletal: Reports extremity pain and other Details: Right ankle pain ; Denies back pain or neck pain Integumentary Denies rash or wounds Neurologic Neurologic: Denies headache(s), paresthesias or weakness EXAM Physical Exam Const Vital Signs: 07/02/23 16:45 07/02/23 18:14 Temperature 97.3 F L 97.9 F Temperature Source Temporal Pulse Rate 95 90 Respiratory Rate 18 18 Blood Pressure 132/58 H 130/54 H Blood Pressure Mean 82 79 Pulse Ox 99 99 Oxygen Delivery Method Room Air Positive well nourished and well developed General Appearance ED: well developed and NAD HEENT Reports moist mucous membranes normocephalic and atraumatic Eyes PERRL, EOMs intact bilaterally and conjunctivae normal General Eye ED: Yes normal appearance of both eyes Neck no lymphadenopathy and supple General: Negative for tenderness Chest Wall Chest: Negative for tenderness Resp normal respiratory effort and normal air movement Effort and Inspection: symmetric chest movement; Negative for respiratory distress Cardio regular rate, regular rhythm and no murmurs Peripheral Pulses: pulses 2+ throughout GI normal to inspection, nondistended, normoactive bowel sounds and non-tender Palpation: Negative for guarding or rebound tenderness present Back/Spine no CVA tenderness and no thoracic nor lumbar tenderness Extremity Extremity Narrative: Right lower extremity: No proximal fibular head tenderness. There is lateral scar noted distal fibula. No deformities there is tenderness distal third fibula very minimal tenderness of the ATFL there is no swelling. No medial mild tenderness. No midfoot or proximal fifth base tenderness. Skin intact. Neuro vas intact. General Extremety ED: Yes tenderness; Negative for edema General Extremity: Negative for edema Neuro oriented x3 and no sensory deficits noted Sensorium / Orientation: awake and alert Skin no rashes or lesions noted and no wounds MDM MDM MDM Narrative Medical decision making narrative: Interventions / MDM: Differential diagnosis: Sprain Diagnosis considered but do not suspect: Fracture however x-ray negative. N/A My EKG interpretation: N/A Imaging independently reviewed and interpreted by myself: 2 view x-ray tib-fib: No fracture, hardware intact. (more content not included)... Normal [facility] Tibia Fibula 2 Viewson 07-01 Tibia Fibula 2 Views [facility] Imaging Services [address] [place] [address] Tibia Fibula 2 Views MR#: [id number] Acct: [id number] Name: ROCIO TREADWELL Rep #: [id number] : 2000 M 22 From: Rad Dillard MD PCP: Care Physician,No Primary Status: PRE ER Study: Tibia Fibula 2 Views Date of Exam: 07/02/23 Exam# [id number] Ordering Dr: Lei Zarate DO [id number] INDICATION: injury EXAMINATION/TECHNIQUE: X-RAY - RIGHT XR Tibia/Fibula 2 Views 4 VIEWS COMPARISON: April 19, 2022 FINDINGS: SOFT TISSUES: Mild diffuse calf and lower leg edema No radiopaque foreign body. BONES/JOINTS: Distal fibular internal fixation plate screw complex without evidence of hardware failure. No acute fracture or subluxation.. Normal alignment. Preservation of the joint space.. No sclerotic or destructive changes observed. RAD/Tibia Fibula 2 Views IMPRESSION: Mild lower leg edema. No acute osseous finding.. Electronically Signed: Rad Dillard MD at 17:15 EDT Reading Location ID and State: [facility] / [place] Tel , Service support , CC: Dr. Lei Zarate DO; No Primary Care Physician [employer]: Signed Normal [facility] Laboratory - Microbiology an d Antimicrobial susceptibilityon 05-22-2023 SARS-CoV-2 (COVID-19) RNA MARY+probe Ql (Unsp spec) Not detected [facility] No Panel Informationon 05-21 Influenza Types A,B Rapid (Clinic) Not detected [facility] Urgent Care Visit Reporton 0 05-22-2023 Urgent Care Visit Report [facility] [address] , [address] [place] [address] OFFICE VISIT Date of Service: 05/22/23 MR#: [id number] Acct: [id number] Name: ROCIO TREADWELL Rep #: [id number] : 2000 Provider: JANENE Mckeon Age/Sex: 22/M Location: [email or web address] Status: Signed Intake Vital Signs 04/29/23 15:03 05/22/23 08:03 Height 5 ft 9 in 5 ft 9 in Weight: 151 lb 4 oz BMI 22.3 BP 116/60 Blood Pressure Location Lt brachial Position Sitting Respiration 17 Pulse 91 Pulse Source NIBP Temp 98.5 F Temp Source Temporal Pulse Oximetry (%) 98 Oxygen Delivery Method room air Intake Visit Reasons: CONGESTION, COUGH, HEADACHE Chief Complaint: KATZ, cough, congestion Rn Intake Required: No Is patient in pain?: No Allergies No Known Allergies Allergy (Verified 05/22/23 08:03) Medications acetaminophen 500 mg tablet (Tylenol Extra Strength) 1,000 mg PO Q4H PRN fever or pain 10/17/22 [History Confirmed 05/22/23] ibuprofen 200 mg tablet 800 mg PO Q8H PRN fever or pain 10/17/22 [History Confirmed 05/22/23] naproxen 500 mg tablet 500 mg PO BID #14 tabs 04/29/23 [Rx Confirmed 05/22/23] azithromycin 250 mg tablet See Rx Instructions PO .COMPLEX #6 tabs 05/22/23 [Rx Confirmed 05/22/23] pseudoephedrine 60 mg-DM 15 mg-guaifenesin 400 mg tablet (Capmist DM) 1 tab PO Q4-6H PRN cold symptoms #20 tabs 05/22/23 [Rx Confirmed 05/22/23] Nurse's Note: KATZ, cough, congestion x 3 days exposed to flu and covid PFSH Medical History Back pain Closed fracture of right distal fibula Hydrocele Injury of head and neck Smoker Surgical History History of ankle surgery History of hydrocelectomy Social History (System 10/28/22 @ 13:27 by Hanna Desai) household members: significant other Smoking Status: Never smoker alcohol intake: current alcohol intake frequency: a few times a month Alcohol type: beer substance use type: does not use HPI HPI Chief Complaint: KATZ, cough, congestion Details: ROCIO GREG, is a 22 M who presents to the office today for complaint of headache, cough, congestion for the past 5 days. Patient denies hemoptysis, shortness of breath or difficulty breathing. No nausea, vomiting or diarrhea. No loss of taste or smell. No other associated symptoms or alleviating/aggravating factors. ROS Const Constitutional: No other (6 system ROS completed with pertinent findings in the HPI otherwise normal.) Exam Const General: cooperative and well developed HENMT Head: normal to inspection and atraumatic Ears: hearing grossly normal bilaterally Nose: nasal discharge clear Face and sinus: normal facial exam Mouth: oral mucosae normal Throat: abnormal tonsil bilaterally hypertrophy 1+ Resp Effort Inspection: normal respiratory effort and no audible wheezes Auscultation: Bilateral: Clear to Auscultation Cardio Rate: regular rate Rhythm: regular rhythm Neuro General: patient alert and CN's II-XI intact bilaterally Psych Appearance: grossly normal Mental Status: mental status grossly normal Results POC ERNIE Covid FluAB PCR POC Ernie Covid PCR Not Detected Last Edit by Rama Landry on 05/22/23 08:20 POC ERNIE FLU NOT DETECTED FLU A B Last Edit by Rama Landry on 05/22/23 08:20 Coding Level of Care Code Off vis,new,level 3 Diagnoses Contact with or suspected exposure to other viral communicable disease Z20.828 Acute upper respiratory infection J06.9 Assessment and Plan Assessment and Plan (1) Contact with or suspected exposure to other viral communicable disease: Status: Acute (2) Acute upper respiratory infection: Status: Acute Orders: Orders POC Ernie Covid FLUAB PCR Today Medications: New azithromycin take 500 mg today (day 1), then 250 mg for 4 days (days 2-5) PO 6 tabs 0RF gzgtugotyibloda-YU-eyycv enesin 60-15-400 mg (Capmist DM) do not exceed 4 doses per 24 hrs 1 TAB PO Q4-6H PRN 20 tabs 0RF cold symptoms Plan Patient tested negative for COVID and influenza in the office today. Azithromycin and Capmist as prescribed today. Encouraged to get plenty of rest, drink lots of clear liquids, and use Tylenol or Ibuprofen (unless contraindicated) for fever and comfort. Patient also educated on other symptomatic management techniques. To be seen in 7-10 days if no improvement; sooner if worsening of symptoms. Patient advised of potential red flags and when appropriate to report to the ED. Patient verbalized understanding and agreement with all the above. 05/22/23 1026 Date Rodri Mai Signature: Date (if applicable) CC: Normal [facility] Elbow min 3 Viewson 04-29-19 Elbow min 3 Views [facility] Imaging Services [address] [place] [address] Elbow min 3 Views MR#: [id number] Acct: [id number] Name: ROCIO TREADWELL Rep #: [id number] : 2000 M 22 From: Mariano villatoro MD PCP: Care Physician,No Primary Status: REG ER Study: Elbow min 3 Views Date of Exam: 04/29/23 Exam# [id number] Ordering Dr: Arturo Mattson DO [id number] STUDY: X-RAY - RIGHT ELBOW REASON FOR EXAM: Male, 22 years old. Pain. No history of injury. TECHNIQUE: 3 view(s) of the elbow. COMPARISON: None. FINDINGS: Normal visualized humerus, radius and ulna. Normal radiocapitellar and ulnotrochlear articulations. The soft tissue structures are unremarkable. RAD/Elbow min 3 Views IMPRESSION: Normal x-ray examination of the elbow. Electronically Signed: Mariano Gardiner MD at 15:37 EST , CC: Dr. Arturo Mattson, ; No Primary Care Physician [employer]: Signed Normal [facility] Emergency Department Summary on 04-29-2023 Emergency Department Summary [facility] Medical Records Department [address] [place] [address] Emergency Department Summary 04/29/23 MR#: [id number] Acct: [id number] Name: ROCIO TREADWELL Rep #: [id number] : 2000 22 From: Arturo Mattson DO PCP: Care Physician,No Primary Status:DEP ER Location: ED HPI History of Present Illness Chief Complaint: Upper Extremity Injury Detail of Chief Complaint: Pain to right elbow and numbness and tingling to index and middle finger Informant: patient Narrative Narrative: Patient presents to the emergency department with complaint of pain of the right elbow. Patient also describes some numbness and tingling intermittently to the right index finger and right long finger. 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 3 days ago he was carrying some wood that he dropped which kind of bent his arm backwards and caused pain in his right elbow. Continues to have pain to the right elbow. He is right-hand dominant. [facility] Medical History Back pain Closed fracture of right distal fibula Hydrocele Injury of head and neck Smoker Home Medications acetaminophen 500 mg tablet (Tylenol Extra Strength) 1,000 mg PO Q4H PRN fever or pain 10/17/22 [History Last Taken Unknown] ibuprofen 200 mg tablet 800 mg PO Q8H PRN fever or pain 10/17/22 [History Last Taken Unknown] naproxen 500 mg tablet 500 mg PO BID #14 tabs 04/29/23 [Rx Last Taken Unknown] Allergy/AdvReac Type Severity Reaction Status Date / Time No Known Allergies Allergy Verified 10/28/22 13:27 Surgical History History of ankle surgery History of hydrocelectomy Social History (System 10/28/22 @ 13:27 by Hanna Desai) household members: significant other Smoking Status: Never smoker alcohol intake: current alcohol intake frequency: a few times a month Alcohol type: beer substance use type: does not use ROS ROS ED Review of Systems ROS Unobtainable: other Constitutional Constitutional ED: Reports lethargy; Denies chills, fever(s), sweats or weight loss Eyes Eyes: Denies blurry vision, change in vision or diplopia ENT ENT ED: Denies rhinorrhea or sore throat Cardiovascular Cardiovascular: Denies chest pain, orthopnea or racing heartbeat Respiratory/Chest Respiratory/Chest: Denies cough, dyspnea, dyspnea on exertion, orthopnea or sputum Gastrointestinal Gastrointestinal: Denies abdominal pain, diarrhea, nausea or vomiting Genitourinary Genitourinary ED: Denies dysuria, hematuria or urinary frequency Musculoskeletal Musculoskeletal: Reports other Details: Right elbow pain ; Denies arthralgias, back pain, myalgias or neck pain Integumentary Denies abscess, Abrasions or rash Neurologic Neurologic: Reports paresthesias RUE; Denies headache(s) or weakness Psychiatric Psychiatric: Denies anxiety, depression or suicidal thoughts Endocrine Endocrinology: Denies polydipsia, polyphagia or polyuria Hematologic/Lymphatic Hematologic/Lymphatic: Denies easy bleeding, easy bruising or lymphadenopathy Allergic/Immunologic Allergic/Immunologic ED: Denies mouth swelling, tongue swelling or urticaria EXAM Physical Exam Const Vital Signs: 04/29/23 15:03 Temperature 97.1 F L Temperature Source Temporal Pulse Rate 74 Respiratory Rate 16 Blood Pressure 123/50 H Blood Pressure Mean 74 Pulse Ox 99 Oxygen Delivery Method Room Air Positive well nourished and well developed General Appearance ED: well developed and NAD HEENT Reports TM's clear and moist mucous membranes normocephalic and atraumatic; Negative for trauma or tenderness Tympanic Membrane ED: Yes TM's clear Eyes PERRL and EOMs intact bilaterally General Eye ED: Negative for pale conjunctiva or scleral icterus Neck no lymphadenopathy, supple and no JVD General: Negative for tenderness Chest Wall inspection of chest normal and palpation of chest normal Chest: Negative for tenderness Resp normal respiratory effort and clear to auscultation bilaterally Effort and Inspection: Negative for respiratory distress or pain with movement Auscultation: Negative for rhonchi, wheezes or diminished lung sounds Cardio regular rate, regular rhythm, S1 normal heart sound, S2 normal heart sound and no murmurs Peripheral Pulses: pulses 2+ throughout GI normal to inspection, nondistended, normoactive bowel sounds, soft to palpation, non-tender, non- distended and no masses Back/Spine no CVA tenderness and no thoracic nor lumbar tenderness Extremity normal to inspection Extremity Narrative: No evidence of trauma noted to the right upper extremity. He has tenderness palpation over the lateral epicondyles on exam. He has good range of motion in flexion extension. He has some pain with pronation ramos (more content not included)... Normal [facility] Office Visit (Urology)on Follow-up visit Diagnoses/Problems Assessed Hydrocele (603.9) (N43.3) Current smoker (305.1) (F17.200) Orders SocHx: Current smoker Tobacco Use Screening; Status:Complete; Done: 31Oct2022 Perform:Not Applicable;Ordered; For:SocHx: Current smoker; Ordered By:Devika [...] 1 tablet daily Vitals Vital Signs Recorded: [id number] 02:33PM Ouzdiopmjmi45 Qbigsj820 lb Tobacco Usea) Yes Patient encouraged to stop using tobacco productsYes PHQ-2 Patient Declined/Screening not indicatedYes Falls Screening (Age 18+)a) No falls within the last year Physical Exam still with some swelling drainage decreased drain removed Signatures Electronically signed by : Micky Aleman II, MD; Oct 31 2022 2:40PM EST (Author) Normal [facility] Tobacco Screening.on 023 Fall risk assessment a) No falls within the last year [facility]- [facility] - [employer] Work Phone: Tobacco use status CPHS a) Yes [facility] - [employer] Work Phone: Tobacco Screening. Yes MP-Uro logy- IM[facility] - [employer] Work Phone: Office Visit (Urology)on Follow-up visit Diagnoses/Problems [...] No Reported Medications Vitals Vital Signs Recorded: [id number] 08:08AM Dtodfjvzrmj15 Drfopt830 lb Tobacco Usea) Yes Patient encouraged to stop using tobacco productsYes PHQ-2 Patient Declined/Screening not indicatedYes Falls Screening (Age 18+)a) No falls within the last year Physical Exam still with significant right scrotal swelling Drain tube still draining Levaquin Rx given Signatures Electronically signed by : Micky Aleman II, MD; Oct 22 2022 8:24AM EST (Author) Normal [facility] Tobacco Screening.on 023 Fall risk assessment a) No falls within the last year [facility] [place] [facility] Work Phone: Tobacco use status CPHS a) Yes [facility] [place] [facility] DO Work Phone: [phone] Tobacco Screening. Yes -[facility] [place] 232 DO Work Phone: No [facility]on 10-[facility] Order Reconciliationon 10-16 Order [...] be shared with your follow-up providers (doctor, sprinkler inspector, physical therapist, etc.). Follow Up with Dr Aleman in 3 Days hydrocodone-acetaminophe n 5 mg-325 mg oral tablet 1 tab(s) [...] be shared with your follow-up providers (doctor, sprinkler inspector, physical therapist, etc.). Follow Up with Dr Aleman in 3 Days hydrocodone-acetaminophe n 5 mg-325 mg oral tablet 1 tab(s) orally every 8 hours Post Procedure Discharge Criteria Criteria: Easily arousable / responding appropriately; Significant complications are absent; SpO2 = or > 92%, or if SpO2 < 92%, maintains within 2% of baseline; Vital signs +/- 20% of preprocedure status; Ambulates without dizziness / age appropriate activity and ambulatory status returns to pre-procedure baseline. [facility] Surgical Pathology Department Name ROCIO TREADWELL Pathologist: ROOPA WYATT Date of Procedure: 10/16/2022 Date Received: 10/16/2022 Date Reported 10/29/2022 Submitting Physician: MICKY ALEMAN II, MD Location: [facility] External # FINAL DIAGNOSIS A. RIGHT HYDROCELE SAC: -- FIBROMEMBRANOUS TISSUE, CONSISTENT WITH HYDROCELE. Electronically Signed Out By ROOPA WYATT/JANELLE By the signature on this report, the individual or group listed as making the Final Interpretation/Diagnosis certifies that they have reviewed this case. Diagnostic interpretation performed at [facility] [address] [place] [address] Clinical History: Physician Contact Number: [phone] Fixative (A): Formalin Clinical Diagnosis History HYDROCELE REPAIR Specimens Submitted As: A: RIGHT HYDROCELE SAC Gross Description: Received in formalin, labeled with the patient's name and hospital number and right hydrocele sac, is a membraneous segment of tissue measuring 3.5 x 2.4 x 1.7 cm. Areas of induration, nodularity, necrosis are not seen. Areas of hemorrhage are seen measuring up to 1.2 cm in greatest dimension. Laundry Assistant sections are submitted in one cassette. JWH jwh/10/19/2022 [facility] Department of Pathology [id number] [place] [address] Normal [facility] Comment on above: Performed By: #### [facility] #### [facility] Surgical Pathology Department [id number] [place], [place] [id number] Patient Profile - Preop v3on 10-15-2022 Patient Profile - Preop v3 Patient Profile - Preop: Initial Info: Patient DemographicsName: ROCIO TREADWELL Date: 2000 Address: [address] [place] [address] Primary Phone [phone] Call Attemptedattempt 1 Instructions Givenappropriate clothing, bring responsible adult as the stud driver (procedure may be cancelled if no stud driver), center location, insurance information Prep Instructions Reviewedyes Instructed to Have No Fluids Aftermidnight How to be AddressedTrevor Spoken Language PreferredEnglish Source of Informationpatient Stated Reason for AdmissionRight hydrocelectomy Primary Contact Name and [id number] Medications Brought to Hospitalno General Health: Weight in kg64.4 kilogram(s) Weight in hyj994.9 pound(s) Weight Methodactual (measured) Scale Typestanding Height in feet5 feet Height in yyosbz17 inch(es) Height in cm177.8 centimeter(s) Height Methodstated BMI (kg/m2)20.371 square meter Patient or Family Member Reaction to Anesthesiano previous reaction; no previous family member reaction Blood Avoidance/Restrictionsno ne Previous Transfusion Reactionnot applicable Health Mgmt: Symptoms/Conditions Managed at [facility] Barriers to Managing Healthnone Relationship/Environ: Lives Withspouse Living Arrangementscondominium Resource/Environmental Concernsnone [place] Anticip[place] at [place] Tobacco Use: Tobacco Useyes Tobacco Typecigarettes Last Tobacco [id number] Number of Packs per Day0.5 Number of yrs2 Pack yrs1 Pre-op Checklist: Arrival [id number] Arrival Time07:45 Procedure TypeRight hydrocelectomy NPOyes Last Food [id number] 18:00 Last Clear Fluid [id number]-1478 23:30 ID Band On Patientpatient ID (name) [...] encounter for closed fracture Electronic Signatures: Latoya Raya (LUPIS) (Signed 16-Oct-2022 07:51) Authored: Initial Info, General Health, Health Mgmt, Relationship/Environ, Tobacco Use, Pre-op Checklist, Additional Information Mary Shah) (Signed 15-Oct-2022 10:43) Authored: Initial Info, General Health, Tobacco Use, Additional Information Last Updated: 16-Oct-2022 07:51 by Latoya Raya (LUPIS) [facility] Office Visit (Urology)on Follow-up visit Diagnoses/Problems Assessed [...] No Reported Medications Vitals Vital Signs Recorded: [id number] 02:27PM Eumlrmrliyy01 Height5 ft 10 in Vkqtel975 lb BMI Erkvstafok88.81 kg/m2 BSA Calculated1.82 Tobacco Usea) Yes Patient [...] Oct 08 2022 2:35PM EST (Author) Normal [facility] Tobacco Screening.on 023 Adult depression screening assessment No [facility] [place] 232 DO Work Phone: Fall risk assessment a) No falls within the last year [facility] [place] 232 DO Work Phone: Tobacco use status [facility] a) Yes [facility] [place] 232 DO Work Phone: Tobacco Screening. Yes [facility] [place] [facility] DO Work Phone: Basophil percentageOrdered B y: ED PROVIDER on 07-01-2022 Basophil percentage 0 SEEN /hpf 0-5 [facility] Bilirubin Test strip Ql (U)O rdered By: ED PROVIDER on 07-01-2022 Bilirubin Ql (U) Negative Negative [facility] Ketones Test strip Ql (U)Ord ered By: ED PROVIDER on 07-01-2022 Ketones Ql (U) Negative Negative [facility] Mucus LM Ql (Urine sed)Order ed By: ED PROVIDER on 07-01-2022 Mucus Ql (Urine sed) 0 SEEN /hpf [facility] Nitrite Test strip Ql (U)Ord ered By: ED PROVIDER on 07-01-2022 Nitrite Ql (U) Negative Negative [facility] Protein Test strip Ql (U)Ord ered By: ED PROVIDER on 07-01-2022 Protein Ql (U) Negative Negative [facility] Squamous epithelial cells de tection in urine sediment by light microscopyOrdered By: ED PROVIDER on 07-01-2022 Epithelial cells.squamous LM Ql (Urine sed) 0 SEEN /hpf 0-5 [facility] Urine blood detectionOrdered By: ED PROVIDER on 07-01-2022 RBC Ql (U) Negative Negative [facility] RBC Ql (U) 0 SEEN /hpf 0-5 [facility] Urine clarityOrdered By: ED PROVIDER on 07-01-2022 Clarity (U) Clear Clear [facility] Urine color determinationOrd ered By: ED PROVIDER on 07-01-2022 Color (U) Yellow Yellow [facility] Urine glucose detectionOrder ed By: ED PROVIDER on 07-01-2022 Glucose Ql (U) Normal mg/dl Normal [facility] Urine leukocyte esterase det ection by dipstickOrdered By: ED PROVIDER on 07-01-2022 Leukocyte esterase Test strip Ql (U) Negative Negative [facility] Urine pHOrdered By: ED PROVI RISA on 07-01-2022 pH (U) 7.0 [pH] 5.0 - 8.0 [facility] Urine sediment bacteria coun t by microscopy (number/high power field)Ordered By: ED PROVIDER on 07-01-2022 Bacteria LM.HPF (Urine sed) [#/Area] 0 /[HPF] None Seen [facility] Urine specific gravity measu rementOrdered By: ED PROVIDER on 07-01-2022 Specific gravity (U) [Rel density] 1.010 1.002-1.030 [facility] Urobilinogen Auto test strip Ql (U)Ordered By: ED PROVIDER on 07-01-2022 Urobilinogen Ql (U) Normal mg/dl Normal [facility] Absolute lymphocyte counton 01-03-2022 Lymphocytes Auto (Unsp spec) [#/Vol] 1.94 10*3/uL 0.83-4.51 [facility] Work Phone: Basophil percentageon 2021 Basophils/100 WBC (Bld) 0.3 % 0-1 [facility] Work Phone: Chloride [Moles/Vol] 106 mmol/L 98-107 [facility] Work Phone: Eosinophils/100 WBC (Bld) 0.5 % 0-5 [facility] Work Phone: Glucose [Mass/Vol] 88 mg/dL 74-106 [facility] Work Phone: Lactate [Moles/Vol] 0.7 mmol/L 0.4-2.0 [facility] Work Phone: Neutrophils (Bld) [#/Vol] 8.0 10*3/uL 2.0-7.7 [facility] Work Phone: Neutrophils/100 WBC (Bld) 73.9 % 47-70 [facility] Work Phone: Potassium [Moles/Vol] 4.0 mmol/L 3.5-5.1 [facility] Work Phone: Sodium [Moles/Vol] 139 mmol/L 136-145 [facility] Work Phone: WBC (Bld) [#/Vol] 10.8 10*3/uL 4.4-11.0 [facility] Work Phone: Blood erythrocytes count (nu mber/volume)on 01-03-2022 RBC (Bld) [#/Vol] 4.34 10*6/uL 4.6-6.2 [facility] Work Phone: Blood hemoglobin measurement (mass/volume)on 01-03-2022 Hemoglobin (Bld) [Mass/Vol] 12.8 g/dL 13.0-16.5 [facility] Work Phone: Blood lymphocytes/100 leukoc yteson 01-03-2022 Lymphocytes/100 WBC (Bld) 17.9 % 19-41 [facility] Work Phone: Blood monocytes/100 leukocyt eson 01-03-2022 Monocytes/100 WBC (Bld) 6.9 % 0-10 [facility] Work Phone: Blood platelet mean volumeon 01-03-2022 Platelet mean volume (Bld) [Entitic vol] 8.9 fL 6.2-12.0 [facility] Work Phone: Determination of erythrocyte mean corpuscular volume (MCV)on 01-03-2022 MCV (RBC) [Entitic vol] 87.3 fL 80-94 [facility] Work Phone: Hematocrit Auto (Bld) [Volum e fraction]on 01-03-2022 Hematocrit (Bld) [Volume fraction] 37.9 % 40-54 [facility] Work Phone: Laboratory - Chemistry and C hemistry - challengeon 01-03-2022 CO2 [Moles/Vol] 29.0 mmol/L 21.0-32.0 [facility] Work Phone: Urea nitrogen/Creatinine [Mass ratio] 11.2 mg/mg 10-20 [facility] Work Phone: Laboratory - Hematology and Cell countson 01-03-2022 Erythrocyte distribution width (RBC) [Entitic vol] 38.5 fL 35.1-43.9 [facility] Work Phone: [phone] Erythrocyte distribution width (RBC) [Ratio] 12.0 % 11.6-14.6 [facility] Work Phone: Immature granulocytes/100 WBC (Bld) 0.500 % 0.0-0.9 [facility] Work Phone: Comment on above: IG% - Immature Granu locytes (promyelocytes, myelocytes and metamyelocytes) > 1% indicates that a LEFT SHIFT is Present. MCH (RBC) [Entitic mass] 29.5 pg 27.0-32.0 [facility] Work Phone: Nucleated RBC/100 WBC (Bld) [Ratio] 0 % 0-5 [facility] Work Phone: MCHC Auto (RBC) [Mass/Vol]on 01-03-2022 MCHC (RBC) [Mass/Vol] 33.8 g/dL 32-36 [facility] Work Phone: No Panel Informationon 01-03 Estimated Creatinine Clearance Calc 161.27 ml/min [facility] Work Phone: Estimated GFR (MDRD) Amer 180 mL/min >60 [facility] Work Phone: Comment on above: GFR Calc Estimated GFR (MDRD) Non-Af Amer 149 mL/min >60 [facility] Work Phone: Comment on above: Non- GFR Calc Platelets bldon 01-03-2022 Platelets (Bld) [#/Vol] 321 10*3/uL 150-450 [facility] Work Phone: Serum or plasma calcium laya urement (mass/volume)on 01-03-2022 Calcium [Mass/Vol] 9.7 mg/dL 8.5-10.1 [facility] Work Phone: Serum or plasma creatinine m easurement (mass/volume)on 01-03-2022 Creatinine [Mass/Vol] 0.71 mg/dL 0.70-1.30 [facility] Work Phone: Comment on above: The validity of the calculated GFR & GFRAA in patients over 70 years has not been determined. Clinical correlation is essential. Serum or plasma urea nitroge n measurement (mass/volume)on 01-03-2022 Urea nitrogen [Mass/Vol] 8 mg/dL 7-18 [facility] Work Phone: Thin prep Papanicolaou smear with manual screeningon 01-03-2022 Thin prep Papanicolaou smear with manual screening 4 5-15 [facility] Work Phone: Basophil percentageon 2021 Chloride [Moles/Vol] 106 mmol/L 98-107 [facility] Work Phone: Glucose [Mass/Vol] 107 mg/dL 74-106 [facility] Work Phone: Comment on above: Fasting Glucose resu lt from 100 to 125 mg/dL suggests IMPAIRED HOMEOSTASIS per A.D.A. criteria. Potassium [Moles/Vol] 3.6 mmol/L 3.5-5.1 [facility] Work Phone: Sodium [Moles/Vol] 140 mmol/L 136-145 [facility] Work Phone: WBC (Bld) [#/Vol] 9.5 10*3/uL 4.4-11.0 [facility] Work Phone: Blood erythrocytes count (nu mber/volume)on 12-31-2021 RBC (Bld) [#/Vol] 4.41 10*6/uL 4.6-6.2 [facility] Work Phone: Blood hemoglobin measurement (mass/volume)on 12-31-2021 Hemoglobin (Bld) [Mass/Vol] 13.1 g/dL 13.0-16.5 [facility] Work Phone: Blood platelet mean volumeon 12-31-2021 Platelet mean volume (Bld) [Entitic vol] 9.4 fL 6.2-12.0 [facility] Work Phone: Determination of erythrocyte mean corpuscular volume (MCV)on 12-31-2021 MCV (RBC) [Entitic vol] 88.0 fL 80-94 [facility] Work Phone: Hematocrit Auto (Bld) [Volum e fraction]on 12-31-2021 Hematocrit (Bld) [Volume fraction] 38.8 % 40-54 [facility] Work Phone: Laboratory - Chemistry and C hemistry - challengeon 12-31-2021 CO2 [Moles/Vol] 27.0 mmol/L 21.0-32.0 [facility] Work Phone: Urea nitrogen/Creatinine [Mass ratio] 15.6 mg/mg 10-20 [facility] Work Phone: Laboratory - Hematology and Cell countson 12-31-2021 Erythrocyte distribution width (RBC) [Entitic vol] 38.3 fL 35.1-43.9 [facility] Work Phone: Erythrocyte distribution width (RBC) [Ratio] 11.9 % 11.6-14.6 [facility] Work Phone: MCH (RBC) [Entitic mass] 29.7 pg 27.0-32.0 [facility] Work Phone: MCHC Auto (RBC) [Mass/Vol]on 12-31-2021 MCHC (RBC) [Mass/Vol] 33.8 g/dL 32-36 [facility] Work Phone: No Panel Informationon 12-31 Estimated Creatinine Clearance Calc 148.70 ml/min [facility] Work Phone: Estimated GFR (MDRD) Amer 165 mL/min >60 [facility] Work Phone: Comment on above: GFR Calc Estimated GFR (MDRD) Non-Af Amer 136 mL/min >60 [facility] Work Phone: Comment on above: Non- GFR Calc Platelets bldon 12-31-2021 Platelets (Bld) [#/Vol] 273 10*3/uL 150-450 [facility] Work Phone: Serum or plasma calcium laya urement (mass/volume)on 12-31-2021 Calcium [Mass/Vol] 9.4 mg/dL 8.5-10.1 [facility] Work Phone: Serum or plasma creatinine m easurement (mass/volume)on 12-31-2021 Creatinine [Mass/Vol] 0.77 mg/dL 0.70-1.30 [facility] Work Phone: Comment on above: The validity of the calculated GFR & GFRAA in patients over 70 years has not been determined. Clinical correlation is essential. Serum or plasma urea nitroge n measurement (mass/volume)on 12-31-2021 Urea nitrogen [Mass/Vol] 12 mg/dL 7-18 [facility] Work Phone: Thin prep Papanicolaou smear with manual screeningon 12-31-2021 Thin prep Papanicolaou smear with manual screening 7 -15 [facility] Work Phone: Absolute lymphocyte counton 05-16-2021 Lymphocytes Auto (Unsp spec) [#/Vol] 1.93 10*3/uL 0.83-4.51 [facility] Work Phone: Basophil percentageon 2021 Basophil percentage 0 SEEN /hpf [facility] Work Phone: Basophils/100 WBC (Bld) 0.4 % 0-1 [facility] Work Phone: Bilirubin [Mass/Vol] 0.40 mg/dL 0.20-1.00 [facility] Work Phone: Comment on above: For patients on eltr ombopag therapy, use of Dimension Ralph TBIL is not recommended. Chloride [Moles/Vol] 106 mmol/L 98-107 [facility] Work Phone: Eosinophils/100 WBC (Bld) 0.9 % 0-5 [facility] Work Phone: Glucose [Mass/Vol] 100 mg/dL 74-106 [facility] Work Phone: [phone] Comment on above: Fasting Glucose resu lt from 100 to 125 mg/dL suggests IMPAIRED HOMEOSTASIS per A.D.A. criteria. Neutrophils (Bld) [#/Vol] 5.0 10*3/uL 2.0-7.7 [facility] Work Phone: Neutrophils/100 WBC (Bld) 66.8 % 47-70 [facility] Work Phone: Potassium [Moles/Vol] 4.2 mmol/L 3.5-5.1 [facility] Work [facility]: Comment on above: Moderate Hemolysis, Result may be falsely increased. Protein [Mass/Vol] 7.8 g/dL 6.4-8.2 [facility] Work Phone: Sodium [Moles/Vol] 138 mmol/L 136-145 [facility] Work Phone: WBC (Bld) [#/Vol] 7.5 10*3/uL 4.4-11.0 [facility] Work Phone: Bilirubin Test strip Ql (U)o n 05-16-2021 Bilirubin Ql (U) Negative Negative [facility] Work Phone: Blood erythrocytes count (nu mber/volume)on 05-16-2021 RBC (Bld) [#/Vol] 4.95 10*6/uL 4.6-6.2 [facility] Work Phone: Blood hemoglobin measurement (mass/volume)on 05-16-2021 Hemoglobin (Bld) [Mass/Vol] 14.8 g/dL 13.0-16.5 [facility] Work Phone: Blood lymphocytes/100 leukoc yteson 05-16-2021 Lymphocytes/100 WBC (Bld) 25.7 % 19-41 [facility] Work Phone: Blood monocytes/100 leukocyt eson 05-16-2021 Monocytes/100 WBC (Bld) 5.9 % 0-10 [facility] Work Phone: Blood platelet mean volumeon 05-16-2021 Platelet mean volume (Bld) [Entitic vol] 9.7 fL 6.2-12.0 [facility] Work Phone: Determination of erythrocyte mean corpuscular volume (MCV)on 05-16-2021 MCV (RBC) [Entitic vol] 87.1 fL 80-94 [facility] Work Phone: Direct bilirubinon 2 Bilirubin.direct [Mass/Vol] 0.11 mg/dL 0.00-0.30 [facility] Work Phone: Hematocrit Auto (Bld) [Volum e fraction]on 05-16-2021 Hematocrit (Bld) [Volume fraction] 43.1 % 40-54 [facility] Work Phone: Ketones Test strip Ql (U)on 05-16-2021 Ketones Ql (U) Negative Negative [facility] Work Phone: Laboratory - Chemistry and C hemistry - challengeon 05-16-2021 ALP [Catalytic activity/Vol] 64 U/L 45-117 [facility] Work Phone: ALT [Catalytic activity/Vol] 22 U/L 16-61 [facility] Work Phone: CO2 [Moles/Vol] 29.0 mmol/L 21.0-32.0 [facility] Work Phone: Globulin (S) [Mass/Vol] 3.4 g/dL 2.2-4.2 [facility] Work Phone: Urea nitrogen/Creatinine [Mass ratio] 10.2 mg/mg 10-20 [facility] Work Phone: Laboratory - Hematology and Cell countson 05-16-2021 Erythrocyte distribution width (RBC) [Entitic vol] 38.5 fL 35.1-43.9 [facility] Work Phone: Erythrocyte distribution width (RBC) [Ratio] 12.2 % 11.6-14.6 [facility] Work Phone: Immature granulocytes/100 WBC (Bld) 0.300 % 0.0-0.9 [facility] Work Phone: Comment on above: IG% - Immature Granu locytes (promyelocytes, myelocytes and metamyelocytes) > 1% indicates that a LEFT SHIFT is Present. MCH (RBC) [Entitic mass] 29.9 pg 27.0-32.0 [facility] Work Phone: Nucleated RBC/100 WBC (Bld) [Ratio] 0 % 0-5 [facility] Work Phone: MCHC Auto (RBC) [Mass/Vol]on 05-16-2021 MCHC (RBC) [Mass/Vol] 34.3 g/dL 32-36 [facility] Work Phone: Mucus LM Ql (Urine sed)on Mucus Ql (Urine sed) 0 SEEN /hpf [facility] Work Phone: Nitrite Test strip Ql (U)on 05-16-2021 Nitrite Ql (U) Negative Negative [facility] Work Phone: No Panel Informationon 05-16 Estimated Creatinine Clearance Calc 112.79 ml/min [facility] Work Phone: Estimated GFR (MDRD) Amer 125 mL/min >60 [facility] Work Phone: Comment on above: GFR Calc Estimated GFR (MDRD) Non-Af Amer 103 mL/min >60 [facility] Work Phone: Comment on above: Non- GFR Calc Platelets bldon 05-16-2021 Platelets (Bld) [#/Vol] 292 10*3/uL 150-450 [facility] Work Phone: Protein Test strip Ql (U)on 05-16-2021 Protein Ql (U) Negative Negative [facility] Work Phone: Serum or plasma albumin laya urement (mass/volume)on 05-16-2021 Albumin [Mass/Vol] 4.4 g/dL 3.2-5.0 [facility] Work Phone: Serum or plasma calcium laya urement (mass/volume)on 05-16-2021 Calcium [Mass/Vol] 9.6 mg/dL 8.5-10.1 [facility] Work Phone: Serum or plasma creatinine m easurement (mass/volume)on 05-16-2021 Creatinine [Mass/Vol] 0.98 mg/dL 0.70-1.30 [facility] Work Phone: Comment on above: The validity of the calculated GFR & GFRAA in patients over 70 years has not been determined. Clinical correlation is essential. Serum or plasma urea nitroge n measurement (mass/volume)on 05-16-2021 Urea nitrogen [Mass/Vol] 10 mg/dL 7-18 [facility] Work Phone: Squamous epithelial cells de tection in urine sediment by light microscopyon 05-16-2021 Epithelial cells.squamous LM Ql (Urine sed) 0-5 SEEN /hpf [facility] Work Phone: Thin prep Papanicolaou smear with manual screeningon 05-16-2021 Thin prep Papanicolaou smear with manual screening 17 U/L 15-37 [facility] Work Phone: Comment on above: Moderate Hemolysis, Result may be falsely increased. Thin prep Papanicolaou smear with manual screening 3 5-15 [facility] Work Phone: Urine blood detectionon 03-0 RBC Ql (U) Negative Negative [facility] Work Phone: RBC Ql (U) 0 SEEN /hpf [facility] Work Phone: Urine clarityon 05-16-2021 Clarity (U) Clear Clear [facility] Work Phone: Urine color determinationon 05-16-2021 Color (U) Yellow Yellow [facility] Work Phone: Urine glucose detectionon Glucose Ql (U) Normal mg/dl Normal [facility] Work Phone: Urine leukocyte esterase det ection by dipstickon 05-16-2021 Leukocyte esterase Test strip Ql (U) Negative Negative [facility] Work Phone: Urine pHon 05-16-2021 pH (U) 7.0 [pH] [facility] Work Phone: Urine sediment bacteria coun t by microscopy (number/high power field)on 05-16-2021 Bacteria LM.HPF (Urine sed) [#/Area] 0 /[HPF] None Seen [facility] Work Phone: Urine specific gravity measu rementon 05-16-2021 Specific gravity (U) [Rel density] 1.010 [facility] Work Phone: Urobilinogen Auto test strip Ql (U)on 05-16-2021 Urobilinogen Ql (U) Normal mg/dl Normal [facility] Work Phone: Coronavirus 2019on 1 COVID 19 Result 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 [facility] Comment on above: Result Comment: Posi tive for This test was developed and its performance characteristics determined by [facility]'s [facility] [place]. This test has been authorized by FDA [...] developed and its performance characteristics determined by [facility] [place]. This test has been authorized by FDA [...] developed and its performance characteristics determined by [facility] [place]. This test has been authorized by FDA [...] developed and its performance characteristics determined by [facility] [place]. This test has been authorized by FDA [...] 2019. 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 [facility] INFLUENZA A,B RAPID MOLECULA Trev 04-27-2019 FLUAV RNA MARY+probe Ql (Unsp spec) Not Detected Not Detected [facility] FLUBV RNA MARY+probe Ql (Unsp spec) Detected Abnormal Not Detected [facility] Interpretation and review of laboratory results Abnormal [facility] Test Method: Nucleic Acid Amplification [facility] Rapid Strep Screenon 020 Interpretation and review of laboratory results Normal [facility] Strep A Ag Negative Presumptive Negative for Group A Streptococcus [facility] XR FOOT LEFT 3+ VIEWS (STAND CHEMA)on 05-30-2018 There is no acute osseous injury or response. There is soft tissue swelling at the great toe. There appears to be some radiopaque material along the nail bed. [employer] Workstation ID: [id number] [facility] EXAMINATION: XR FOOT LEFT 3+ VIEWS (STANDARD) HISTORY: FOOT PAIN COMPARISON: None. FINDINGS: Three views of the left foot are provided. No fracture or malalignment is identified. Joint spaces are well preserved. There is soft tissue swelling at the great toe. There is some radiopaque material along the nail bed. No gas or foreign body is identified within the soft tissues. [facility] Interface, Rad In Fu ji Speechq [...] some radiopaque material along the nail bed. [employer] Workstation ID: [id number] [facility] XR FOOT LEFT 3+ VIEWS (STANDARD) [...] some radiopaque material along the nail bed. [employer] Workstation ID: [id number] Dictated by: FOX RAINES on SatMay 30, 2018 12:03:43 AM EDT Transcribed by: JENNI DUBON on SatMay 30, 2018 12:26:13 AM EDT Finalized by: FOX RAINES on SatMay 30, 2018 12:57:18 AM EDT [facility] Comment on above: Order Comment: Reaso [...] 20:30-0400 Blood Pressure Location NIDAL CHOUJAA DO [facility] 12-05-2023 20:30-0400 Blood Pressure Method NIDAL CHOUJAA DO [facility] 12-05-2023 20:30-0400 Body height 176 cm NIDAL CHOUJAA DO [facility] 12-05-2023 20:30-0400 Body temperature 97.88 [degF] NIDAL CHOUJAA DO [facility] 12-05-2023 20:30-0400 Body weight 63.6 kg NIDAL CHOUJAA DO [facility] 12-05-2023 20:30-0400 Diastolic Blood Pressure Non-Invasive 66 mm[Hg] NIDAL CHOUJAA DO [facility] 12-05-2023 20:30-0400 Heart rate 88 /min NIDAL CHOUJAA DO [facility] 12-05-2023 20:30-0400 Respiratory rate 18 /min NIDAL CHOUJAA DO [facility] 12-05-2023 20:30-0400 Systolic Blood Pressure Non-Invasive 131 mm[Hg] NIDAL CHOUJAA DO [facility] 07-02-2023 18:14-0400 Body temperature 97.9 [degF] No Primary Care Physician [facility] 07-02-2023 18:14-0400 Diastolic blood pressure 54 mm[Hg] No Primary Care Physician [facility] 07-02-2023 18:14-0400 Heart rate 90 /min No Primary Care Physician [facility] 07-02-2023 18:14-0400 Respiratory rate 18 /min No Primary Care Physician [facility] 07-02-2023 18:14-0400 SaO2% (BldA) [Mass fraction] 99 % No Primary Care Physician [facility] 07-02-2023 18:14-0400 Systolic blood pressure 130 mm[Hg] No Primary Care Physician [facility] 07-02-2023 16:45-0400 Body height 175.26 cm No Primary Care Physician [facility] 07-02-2023 16:45-0400 Body mass index (BMI) [Ratio] 22.4 kg/m2 No Primary Care Physician [facility] 07-02-2023 16:45-0400 Body weight 68.94 kg No Primary Care Physician [facility] 05-22-2023 08:03-0500 Body mass index (BMI) [Ratio] 22.3 kg/m2 No Primary Care Physician [facility] 05-22-2023 08:03-0500 Body temperature 98.5 [degF] No Primary Care Physician [facility] 05-22-2023 08:03-0500 Body weight 68.6 kg No Primary Care Physician [facility] 05-22-2023 08:03-0500 Diastolic blood pressure 60 mm[Hg] No Primary Care Physician [facility] 05-22-2023 08:03-0500 Heart rate 91 /min No Primary Care Physician [facility] 05-22-2023 08:03-0500 Respiratory rate 17 /min No Primary Care Physician [facility] 05-22-2023 08:03-0500 SaO2% (BldA) [Mass fraction] 98 % No Primary Care Physician [facility] 05-22-2023 08:03-0500 Systolic blood pressure 116 mm[Hg] No Primary Care Physician [facility] 04-29-2023 15:03-0500 Body height 175.26 cm [facility] 04-29-2023 15:03-0500 Body mass index (BMI) [Ratio] 21.4 kg/m2 [facility] 04-29-2023 15:03-0500 Body temperature 97.1 [degF] [facility] 04-29-2023 15:03-0500 Body weight 65.99 kg [facility] 04-29-2023 15:03-0500 Diastolic blood pressure 50 mm[Hg] [facility] 04-29-2023 15:03-0500 Heart rate 74 /min [facility] 04-29-2023 15:03-0500 Respiratory rate 16 /min [facility] 04-29-2023 15:03-0500 SaO2% (BldA) [Mass fraction] 99 % [facility] 04-29-2023 15:03-0500 Systolic blood pressure 123 mm[Hg] [facility] 10-31-2022 14:33-0400 Body weight 65.77 kg No PCP None [facility] Work Phone: 10-31-2022 14:33-0400 Respiratory rate 16 /min No PCP None ZQ-Fjlngcv-Dyht and Work Phone: 10-22-2022 08:08-0400 Body weight 65.77 kg No PCP None CE-Yzktenn-Rpdwj and [facility] 232 DO Work Phone: 10-22-2022 08:08-0400 Respiratory rate 16 /min No PCP None XN-Ssqzgfl-Nnud land [facility] DO Work Phone: 10-08-2022 14:27-0400 Body height 177.8 cm No PCP None SX-Pwdjmwb-Gfqam and [facility] DO Work Phone: 10-08-2022 14:27-0400 Body mass index (BMI) [Ratio] 20.81 kg/m2 No PCP None CY-Rpsjyxw-Ziaycnek [facility] DO Work Phone: 10-08-2022 14:27-0400 Body surface area Derived from formula 1.82 m2 No PCP None GY-Kffnyrf-Efrqzisv [facility] 232 DO Work Phone: 10-08-2022 14:27-0400 Body weight 65.77 kg No PCP None VB-Vsnfnty-Vdllj and [facility] 232 DO Work Phone: 10-08-2022 14:27-0400 Respiratory rate 15 /min No PCP None SO-Fvrildp-Mrbn land [facility] 232 DO Work Phone: 10-05-2022 07:40-0400 Body height 177.8 cm [facility] 10-05-2022 07:40-0400 Body mass index (BMI) [Ratio] 20.8 kg/m2 [facility] 10-05-2022 07:40-0400 Body temperature 97 [degF] [facility] 10-05-2022 07:40-0400 Body weight 66 kg [facility] 10-05-2022 07:40-0400 Diastolic blood pressure 68 mm[Hg] [facility] 10-05-2022 07:40-0400 Heart rate 57 /min [facility] 10-05-2022 07:40-0400 Respiratory rate 14 /min [facility] 10-05-2022 07:40-0400 SaO2% (BldA) [Mass fraction] 100 % [facility] 10-05-2022 07:40-0400 Systolic blood pressure 118 mm[Hg] [facility] 10-02-2022 17:27-0400 Heart rate 71 /min [facility] 10-02-2022 17:27-0400 Respiratory rate 16 /min [facility] 10-02-2022 17:27-0400 SaO2% (BldA) [Mass fraction] 98 % [facility] 10-02-2022 16:00-0400 Body height 175.26 cm [facility] 10-02-2022 16:00-0400 Body mass index (BMI) [Ratio] 21.4 kg/m2 [facility] 10-02-2022 16:00-0400 Body temperature 97.4 [degF] [facility] 10-02-2022 16:00-0400 Body weight 65.77 kg [facility] 10-02-2022 16:00-0400 Diastolic blood pressure 50 mm[Hg] [facility] 10-02-2022 16:00-0400 Systolic blood pressure 121 mm[Hg] [facility] 07-01-2022 05:36-0400 Respiratory rate 16 /min No Primary Care Physician [facility] 07-01-2022 02:56-0400 Body temperature 98.2 [degF] No Primary Care Physician [facility] 07-01-2022 02:56-0400 Diastolic blood pressure 74 mm[Hg] No Primary Care Physician [facility] 07-01-2022 02:56-0400 Heart rate 95 /min No Primary Care Physician [facility] 07-01-2022 02:56-0400 SaO2% (BldA) [Mass fraction] 997 % No Primary Care Physician [facility] 07-01-2022 02:56-0400 Systolic blood pressure 128 mm[Hg] No Primary Care Physician [facility] 07-01-2022 02:54-0400 Body height 175.26 cm No Primary Care Physician [facility] 07-01-2022 02:54-0400 Body mass index (BMI) [Ratio] 21.7 kg/m2 No Primary Care Physician [facility] 07-01-2022 02:54-0400 Body weight 66.6 kg No Primary Care Physician [facility] 06-27-2022 19:15-0400 Body height 175.26 cm No Primary Care Physician [facility] 06-27-2022 19:15-0400 Body mass index (BMI) [Ratio] 21.5 kg/m2 No Primary Care Physician [facility] 06-27-2022 19:15-0400 Body temperature 99.4 [degF] No Primary Care Physician [facility] 06-27-2022 19:15-0400 Body weight 66.2 kg No Primary Care Physician [facility] 06-27-2022 19:15-0400 Diastolic blood pressure 52 mm[Hg] No Primary Care Physician [facility] 06-27-2022 19:15-0400 Heart rate 77 /min No Primary Care Physician [facility] 06-27-2022 19:15-0400 Respiratory rate 18 /min No Primary Care Physician [facility] 06-27-2022 19:15-0400 SaO2% (BldA) [Mass fraction] 100 % No Primary Care Physician [facility] 06-27-2022 19:15-0400 Systolic blood pressure 118 mm[Hg] No Primary Care Physician [facility] 03-29-2022 16:45-0500 Body temperature 97.7 [degF] No Primary Care Physician [facility] 03-29-2022 16:45-0500 Diastolic blood pressure 74 mm[Hg] No Primary Care Physician [facility] 03-29-2022 16:45-0500 Heart rate 64 /min No Primary Care Physician [facility] 03-29-2022 16:45-0500 Respiratory rate 16 /min No Primary Care Physician [facility] 03-29-2022 16:45-0500 SaO2% (BldA) [Mass fraction] 100 % No Primary Care Physician [facility] 03-29-2022 16:45-0500 Systolic blood pressure 120 mm[Hg] No Primary Care Physician [facility] 03-29-2022 12:12-0500 Body height 175.26 cm No Primary Care Physician [facility] Work Phone: 03-29-2022 12:12-0500 Body mass index (BMI) [Ratio] 21.7 kg/m2 No Primary Care Physician [facility] 03-29-2022 12:12-0500 Body weight 66.67 kg No Primary Care Physician [facility] 01-03-2022 00:39-0400 Body height 177.8 cm [facility] Work Phone: 01-03-2022 00:39-0400 Body mass index (BMI) [Ratio] 21.7 kg/m2 [facility] Work Phone: 01-03-2022 00:39-0400 Body temperature 98.9 [degF] [facility] Work Phone: 01-03-2022 00:39-0400 Body weight 68.7 kg [facility] Work Phone: 01-03-2022 00:39-0400 Diastolic blood pressure 69 mm[Hg] [facility] Work Phone: 01-03-2022 00:39-0400 Heart rate 80 /min [facility] Work Phone: 01-03-2022 00:39-0400 Respiratory rate 18 /min [facility] Work Phone: 01-03-2022 00:39-0400 SaO2% (BldA) [Mass fraction] 99 % [facility] Work Phone: 01-03-2022 00:39-0400 Systolic blood pressure 152 mm[Hg] [facility] Work Phone: 12-31-2021 05:55-0400 Body temperature 98.2 [degF] [facility] Work Phone: 12-31-2021 05:55-0400 Diastolic blood pressure 50 mm[Hg] [facility] Work Phone: 12-31-2021 05:55-0400 Heart rate 88 /min [facility] Work Phone: 12-31-2021 05:55-0400 Respiratory rate 17 /min [facility] Work Phone: 12-31-2021 05:55-0400 SaO2% (BldA) [Mass fraction] 98 % [facility] Work Phone: 12-31-2021 05:55-0400 Systolic blood pressure 148 mm[Hg] [facility] Work Phone: 12-31-2021 05:52-0400 Body height 177.8 cm [facility] Work Phone: 12-31-2021 05:52-0400 Body mass index (BMI) [Ratio] 21.7 kg/m2 [facility] Work Phone: 12-31-2021 05:52-0400 Body weight 68.7 kg [facility] Work Phone: 12-06-2021 19:39-0400 Body height 177.8 cm [facility] Work Phone: 12-06-2021 19:39-0400 Body mass index (BMI) [Ratio] 17.9 kg/m2 [facility] Work Phone: 12-06-2021 19:39-0400 Body temperature 97.2 [degF] [facility] Work Phone: 12-06-2021 19:39-0400 Body weight 56.69 kg [facility] Work Phone: 12-06-2021 19:39-0400 Diastolic blood pressure 57 mm[Hg] [facility] Work Phone: 12-06-2021 19:39-0400 Heart rate 85 /min [facility] Work Phone: 12-06-2021 19:39-0400 Respiratory rate 16 /min [facility] Work Phone: 12-06-2021 19:39-0400 SaO2% (BldA) [Mass fraction] 100 % [facility] Work Phone: 12-06-2021 19:39-0400 Systolic blood pressure 130 mm[Hg] [facility] Work Phone: 08-03-2021 01:26-0400 Body height 177.8 cm [facility] Work Phone: 08-03-2021 01:26-0400 Body mass index (BMI) [Ratio] 21.9 kg/m2 [facility] Work Phone: 08-03-2021 01:26-0400 Body temperature 98.9 [degF] [facility] Work Phone: 08-03-2021 01:26-0400 Body weight 69.3 kg [facility] Work Phone: 08-03-2021 01:26-0400 Diastolic blood pressure 60 mm[Hg] [facility] Work Phone: 08-03-2021 01:26-0400 Heart rate 81 /min [facility] Work Phone: 08-03-2021 01:26-0400 Respiratory rate 16 /min [facility] Work Phone: 08-03-2021 01:26-0400 SaO2% (BldA) [Mass fraction] 98 % [facility] Work Phone: 08-03-2021 01:26-0400 Systolic blood pressure 137 mm[Hg] [facility] Work Phone: 05-17-2021 08:40-0500 Body mass index (BMI) [Ratio] 21.7 kg/m2 [facility] Work Phone: 05-17-2021 08:40-0500 Body temperature 98.1 [degF] [facility] Work Phone: 05-17-2021 08:40-0500 Body weight 68.7 kg [facility] Work Phone: 05-17-2021 08:40-0500 Diastolic blood pressure 66 mm[Hg] [facility] Work Phone: 05-17-2021 08:40-0500 Heart rate 98 /min [facility] Work Phone: 05-17-2021 08:40-0500 Respiratory rate 17 /min [facility] Work Phone: 05-17-2021 08:40-0500 SaO2% (BldA) [Mass fraction] 99 % [facility] Work Phone: 05-17-2021 08:40-0500 Systolic blood pressure 134 mm[Hg] [facility] Work Phone: 05-16-2021 18:10-0500 Body temperature 98 [degF] [facility] Work Phone: 05-16-2021 18:10-0500 Diastolic blood pressure 65 mm[Hg] [facility] Work Phone: 05-16-2021 18:10-0500 Heart rate 81 /min [facility] Work Phone: 05-16-2021 18:10-0500 Respiratory rate 16 /min [facility] Work Phone: 05-16-2021 18:10-0500 SaO2% (BldA) [Mass fraction] 97 % [facility] Work Phone: 05-16-2021 18:10-0500 Systolic blood pressure 127 mm[Hg] [facility] Work Phone: 05-16-2021 18:08-0500 Body mass index (BMI) [Ratio] 20.7 kg/m2 [facility] Work Phone: 05-16-2021 18:08-0500 Body weight 65.77 kg [facility] Work Phone: 04-27-2019 18:43-0500 BMI (Body Mass Index) 22.38 kg/m2 Micky Guerrero [facility] 04-27-2019 18:43-0500 Body Temperature 98.8 [degF] Micky Guerrero [facility] 04-27-2019 18:43-0500 Body weight 70.76 kg Micky Guerrero [facility] 04-27-2019 18:43-0500 BP Diastolic 75 mm[Hg] Micky Guerrero [facility] 04-27-2019 18:43-0500 BP Systolic 118 mm[Hg] Micky Guerrero [facility] 04-27-2019 18:43-0500 Height 177.8 cm Micky Guerrero [facility] 04-27-2019 18:43-0500 Pulse (Heart Rate) 70 /min Micky Guerrero [facility] 04-27-2019 18:43-0500 Pulse Oximetry 97 % Micky Guerrero [facility] 04-27-2019 18:43-0500 Respiratory Rate 16 /min Micky Guerrero [facility] 05-29-2018 21:48-0400 Body Temperature 98.4 [degF] Kye [facility] 05-29-2018 21:48-0400 BP Diastolic 79 mm[Hg] Kye [facility] 05-29-2018 21:48-0400 BP Systolic 131 mm[Hg] [facility] 05-29-2018 21:48-0400 Pulse (Heart Rate) 92 /min Kye [facility] 05-29-2018 21:48-0400 Pulse Oximetry 97 % Kye [facility] 05-29-2018 21:47-0400 BMI (Body Mass Index) 23.18 kg/m2 [facility] 05-29-2018 21:47-0400 Height 170.2 cm [facility] 05-29-2018 21:47-0400 Weight 67.13 kg [facility] Encounters Encounter Date Encounter Type Care Provider Facility Start: 05-17-2024 End: 05-17-2024 Emergency department patient visit MT Valdez [facility] Start: 01-14-2024 End: 01-14-2024 Emergency department patient visit No Primary Care Physician Facility:[facility] Start: 12-05-2023 End: 12-05-2023 Emergency department patient visit VALERIA SHERRYHERMELINDAJoey DO [facility] Start: 07-02-2023 End: 07-02-2023 Emergency department patient visit No Primary Care Physician [facility] Work Phone: Start: 05-22-2023 End: 05-22-2023 Patient encounter procedure No Primary Care Physician [facility] Work Phone: Start: 05-22-2023 End: 05-22-2023 ambulatory Rodri WATTERS Facility:[facility] Start: 04-29-2023 End: 04-29-2023 Emergency department patient visit [facility] Work Phone: Start: 10-31-2022 ambulatory MD MICKY Pelayo cility:[id number] Start: 10-31-2022 FUV, Provider: Micky Aleman II, Status: Pen, Time: 1:45 PM No PCP None [facility] Work Phone: Start: 10-31-2022 Postop follow up vis it related to original px No PCP None [facility] Work Phone: Start: 10-30-2022 Chart Update No PCP None [facility] Work Phone: Start: 10-22-2022 ambulatory MD MICKY Pelayo cility:[id number] Start: 10-22-2022 Office outpatient vi sit 15 minutes No PCP None [facility]alitw[facility]ols[facility] 232 DO Work Phone: Start: 10-16-2022 End: 10-16-[address] Micky Aleman II Facility:[id number] Start: 10-08-2022 ambulatory MD MICKY Pelayo cility:[id number] Start: 10-05-2022 End: 10-05-2022 Emergency department patient visit [facility] Work Phone: Start: 10-02-2022 End: 10-02-2022 Emergency department patient visit [facility] Work Phone: Start: 07-01-2022 End: 07-01-2022 Emergency department patient visit No Primary Care Physician [facility] Start: 06-27-2022 End: 06-27-2022 Emergency department patient visit No Primary Care Physician [facility] Start: 05-23-2022 Registered Recurring No Primar y Care Physician [facility] Start: 04-19-2022 End: 04-19-2022 Patient encounter procedure No Primary Care Physician [facility] Start: 04-02-2022 End: 04-02-2022 Patient encounter procedure No Primary Care Physician [facility] Start: 03-29-2022 Non-patient / Non-visit No Kacey hugh Care Physician [facility] Start: 03-29-2022 End: 03-29-2022 Admission to same day surgery center No Primary Care Physician [facility] Start: 03-29-2022 End: 03-29-2022 ambulatory No Primary Care Physician [facility] Work Phone: Start: 03-23-2022 End: 03-23-2022 Patient encounter procedure No Primary Care Physician [facility] Start: 01-03-2022 End: 01-03-2022 Emergency department patient visit [facility] Start: 12-31-2021 End: 12-31-2021 Emergency department patient visit [facility] Start: 12-06-2021 End: 12-06-2021 Emergency department patient visit [facility] Start: 08-03-2021 End: 08-03-2021 Emergency department patient visit [facility] Start: 05-17-2021 End: 05-17-2021 Emergency department patient visit [facility] Start: 05-16-2021 End: 05-16-2021 Emergency department patient visit [facility] Start: 04-27-2019 End: 04-27-2019 Emergency department patient visit [facility] Start: 04-27-2019 End: 04-27-2019 Emergency department patient visit Micky Guerrero Work Phone: [facility] Emergency Department Comment on above: Influenza (Primary D x) Start: 05-29-2018 End: 05-30-2018 Emergency department patient visit [facility] Start: 05-29-2018 End: 05-30-2018 Emergency department patient visit Kye Price Kimberly Work Phone: [facility] Emergency Department Comment on above: Cellulitis of great toe, unspecified laterality (Primary Dx) Start: 04-24-2018 End: 04-24-2018 Emergency department patient visit Kye Harris Facility:[facility] Date Procedure Procedure Detail Performing Clinician Start: 07-02-2023 Plain X-ray of tibia and fibula No Primary Care Physician Start: 04-29-2023 Plain x-ray of elbow Start: 10-02-2022 X-ray of lumbar spin e, two or three views Start: 07-01-2022 Ultrasound of scrotu m with Doppler and color flow imaging No Primary Care Physician Start: 04-19-2022 Radiography of ankle No Primary Care Physician Start: 03-29-2022 Open reduction with internal fixation No Primary Care Physician Start: 03-29-2022 Fluoroscopic guidance N o Primary Care Physician Start: 03-29-2022 Radiography of ankle No Primary Care Physician Start: 01-03-2022 CT of soft tissues o f neck with contrast Start: 12-31-2021 CT of soft tissues o f neck with contrast Start: 12-06-2021 Radiography of ankle Start: 05-17-2021 Echography of scrotu m and contents Start: 05-16-2021 CT of abdomen and pe lvis without contrast Start: 04-27-2019 Influenza virus A AN D B antigen assay Priscilla Garcia Work Phone: Start: 04-27-2019 Streptococcus pyogen es Ag [Presence] in Throat Priscilla Garcia Work Phone: Start: 05-30-2018 X-ray of left foot Tria ge Protocol Emergency Operative procedure on ankle No PCP None Plan of Treatment Date Care Activity Detail Author Start: 02-25-2024 Tetanus vaccination TETANUS EVERY 10 YR [facility] Start: 07-02-2023 [facility] Start: 04-29-2023 [facility] Start: 02-13-2023 FUV, Provider: Micky Aleman II, Status: Pen, Time: 7:45 AM FUV, Provider: Micky Aleman II, Status: Pen, Time: 7:45 AM [id number] Work Phone: Start: 10-25-2022 FUV, Provider: Micky Aleman II, Status: Pen, Time: 9:15 AM FUV, Provider: Micky Aleman II, Status: Pen, Time: 9:15 AM [id number] HC 232 DO Work Phone: Start: 06-27-2022 [facility] Start: 05-07-2022 Tetanus, diphtheria and acellular pertussis vaccination DTAP VACCINES (4 - Td) [facility] Start: 04-02-2022 Patient referral [facility] Work Phone: Start: 03-29-2022 Gait training procedure [facility] Start: 03-29-2022 Notification of physician [facility] Start: 03-29-[address] [facility] Start: 03-29-2022 Application of ice collar, cap or bag [facility] Start: 03-29-2022 Catheterization of vein [facility] Start: 03-29-2022 Elevation of affecte d extremity [facility] Start: 03-29-2022 Following clinical pathway protocol [facility] Start: 03-29-2022 Patient discharge [facility] Start: 03-29-2022 Procedure discontinued [facility] Start: 03-29-2022 Taking patient vital signs [facility] Start: 03-29-2022 Vital signs measurements [facility] Start: 03-29-2022 End: 03-29-2022 [facility] Start: 03-29-2022 Anes open proc bones lower leg/ankle/foot nos ANESTH LOWER LEG BONE SURG [facility] Start: 03-29-2022 Open tx distal fibul ar fracture lat malleolus TREATMENT OF ANKLE FRACTURE [facility] Start: 03-29-2022 Medication education [facility] Start: 01-03-2022 Incision & drainage abscess simple/single DRAINAGE OF SKIN ABSCESS [facility] Work Phone: Start: 08-03-2021 X-ray of lumbar spin e, two or three views Lumbar Spine 2 or 3 Views [facility] Work Phone: Start: 01-24-2019 History and physical examination, annual for health maintenance Wellness Visit [facility] Start: 11-16-2018 Influenza vaccinatio n given SEQUENTIAL INFLUENZA VACCINE (#1) [facility] Start: 06-03-2018 End: 06-03-2018 Office Visit 06/03/2018 Office Visit Podiatry Yudith Alves, MICHELLE [address] [place] [address] [facility] Start: 05-07-2017 Tetanus, diphtheria and acellular pertussis vaccination DTAP VACCINES (4 - Td) [facility] Start: 2001 Depression screening using PHQ-9 (Patient Health Questionnaire 9) score Depression Screening (PHQ9) [facility] Patient Education [facility] Work Phone: Patient referral [facility] Work Phone: End: 04-27-2019 S. pyogenes Org specific cx Ql (Throat) Strep A Culture, Throat Microbiology HARRIS Once for 1 Occurrences starting 04/27/2019 until 04/27/2019, 1 completed [facility] Comment on above: Once for 1 Occurrenc es starting 04/27/2019 until 04/27/2019, 1 completed S. pyogenes Org spec ific cx Ql (Throat) Strep A Culture, Throat Microbiology Routine 04/27/2019 6:46 PM EST [facility] Immunizations Immunization Date Immunization Notes Care Provider Fa cility 12-06-2021 tetanus toxoid, redu nellie diphtheria toxoid, and acellular pertussis vaccine, adsorbed [facility] 01-24-2018 influenza, injectabl e, quadrivalent, preservative free [facility] 01-24-2018 meningococcal B vacc ine, recombinant, OMV, adjuvanted Kye [facility] 11-22-2017 meningococcal B vacc ine, recombinant, OMV, adjuvanted Kye [facility] 11-22-2017 meningococcal polysaccharide (groups A, C, Y and W-135) diphtheria toxoid conjugate vaccine (MCV4P) Kye [facility] 12-30-2014 poliovirus vaccine, inactivated Kye [facility] 11-05-2014 human papilloma viru s vaccine, quadrivalent Kye [facility] 02-24-2014 human papilloma viru s vaccine, quadrivalent Kye [facility] 02-24-2014 meningococcal polysaccharide (groups A, C, Y and W-135) diphtheria toxoid conjugate vaccine (MCV4P) [facility] 02-24-2014 tetanus and diphther ia toxoids, adsorbed, preservative free, for adult use (2 Lf of tetanus toxoid and 2 Lf of diphtheria toxoid) [facility] 05-07-2012 hepatitis A vaccine, pediatric/adolescent dosage, 2 dose schedule [facility] 05-07-2012 measles, mumps, rube lla, and varicella virus vaccine [facility] 05-07-2012 poliovirus vaccine, inactivated [facility] 05-07-2012 tetanus toxoid, redu nellie diphtheria toxoid, and acellular pertussis vaccine, adsorbed [facility] 05-31-2006 diphtheria, tetanus toxoids and acellular pertussis vaccine [facility] 05-31-2006 DTaP-hepatitis B and poliovirus vaccine [facility] 05-31-2006 hepatitis A vaccine, adult dosage [facility] 05-31-2006 hepatitis A vaccine, pediatric/adolescent dosage, 2 dose schedule [facility] 05-31-2006 hepatitis B vaccine, pediatric or pediatric/adolescent dosage [facility] 05-31-2006 poliovirus vaccine, inactivated [facility] 05-31-2006 varicella virus vaccine [facility] 01-10-2004 diphtheria, tetanus toxoids and acellular pertussis vaccine [facility] 01-10-2004 diphtheria, tetanus toxoids and acellular pertussis vaccine, unspecified formulation [facility] 01-10-2004 haemophilus influenz ae type b conjugate and Hepatitis B vaccine [facility] 01-10-2004 haemophilus influenz ae type b vaccine, conjugate unspecified formulation [facility] 01-10-2004 hepatitis B vaccine, pediatric or pediatric/adolescent dosage [facility] 01-10-2004 measles, mumps and r ubella virus vaccine [facility] 01-10-2004 poliovirus vaccine, inactivated [facility] 2001 hepatitis B vaccine, pediatric or pediatric/adolescent dosage [facility] Payers Date Payer Category Payer Self-pay [id number] 2023 Unknown [id number] 2015 Medicaid [employer] MEDICA[employer] xxxxxxxxxxx 2015-Present xxxxxxxxxxx [id number] 2015 Unknown [id number] 2001 Unknown [id number]. 1069 2001 Unknown [id number] [id number]. 356 2001 Unknown [id number] 2.16.840.1.425521.3.579.2. 356 2001 Unknown [id number] 2.16.840.1.119671.3.579.2. 356 2001 Unknown [id number] 2.16.840.1.657698.3.579.2. 627 2001 Unknown [id number] 2.16.840.1.682997.3.579.2. 651 1981 Unknown [id number] 2.16.840.1.888252.3.579.2. 903 1981 Unknown [id number] 2.16.840.1.461803.3.579.2. 903 Private Health Insurance [id number] Unknown SELF INS [facility] [id number] Unknown [facility] [id number] Unknown Unknown [id number] 2.16.840.1.384995.3.579.2. 462 Unknown [id number] 2.16.840.1.209630.3.579.2. 462 Unknown [id number] 2..840.1.953137.3.579.2. 462 Unknown [id number] [id number]. 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) [facility] Start: 08-03-2021 End: 07-02-2023 Tobacco smoking status [facility] Unknown if ever smoked [facility] Start: 2000 Sex Assigned At Male [facility] Current [facility] Work Phone: Tobacco smoking status No Smokin g Status Entered [facility] Medical Equipment Procedure Code Equipment Code Equipment Origin al Text Equipment Identifier Dates ORIF, ankle 3.5 CORTICAL SCR EW 3.5X12 FDA Start: 03-29-2022 ORIF, ankle 3.5 CORTICAL SCR EW 3.5X12 FDA Start: 03-29-2022 ORIF, ankle 3.5 CORTICAL SCR EW 3.5X12 FDA Start: 03-29-2022 ORIF, ankle 3.5 CORTICAL SCR EW 3.5X22 FDA Start: 03-29-2022 ORIF, ankle 4.0 CANCELLOUS S CREW 4.0X18 FDA Start: 03-29-2022 ORIF, ankle 4.0 CANCELLOUS S CREW 4.0X18 FDA Start: 03-29-2022 ORIF, ankle 8HOLE THIRD TUBU LAR PLATE FDA Start: 03-29-2022 ORIF, ankle 3.5 CORTICAL SCR EW 3.5X12 FDA Start: 03-29-2022 ORIF, ankle 3.5 CORTICAL SCR EW 3.5X12 FDA Start: 03-29-2022 ORIF, ankle 3.5 CORTICAL SCR EW 3.5X12 FDA Start: 03-29-2022 ORIF, ankle 3.5 CORTICAL SCR EW 3.5X22 FDA Start: 03-29-2022 ORIF, ankle 4.0 CANCELLOUS S CREW 4.0X18 FDA Start: 03-29-2022 ORIF, ankle 4.0 CANCELLOUS S CREW 4.0X18 FDA Start: 03-29-2022 ORIF, ankle 8HOLE THIRD TUBU LAR PLATE FDA Start: 03-29-2022 ORIF, ankle 3.5 CORTICAL SCR EW 3.5X12 FDA Start: 03-29-2022 ORIF, ankle 3.5 CORTICAL SCR EW 3.5X12 FDA Start: 03-29-2022 ORIF, ankle 3.5 CORTICAL SCR EW 3.5X12 FDA Start: 03-29-2022 ORIF, ankle 3.5 CORTICAL SCR EW 3.5X22 FDA Start: 03-29-2022 ORIF, ankle 4.0 CANCELLOUS S CREW 4.0X18 FDA Start: 03-29-2022 ORIF, ankle 4.0 CANCELLOUS S CREW 4.0X18 FDA Start: 03-29-2022 ORIF, ankle 8HOLE THIRD TUBU LAR PLATE FDA Start: 03-29-2022 ORIF, ankle 3.5 CORTICAL SCR EW 3.5X12 FDA Start: 03-29-2022 ORIF, ankle 3.5 CORTICAL SCR EW 3.5X12 FDA Start: 03-29-2022 ORIF, ankle 3.5 CORTICAL SCR EW 3.5X12 FDA Start: 03-29-2022 ORIF, ankle 3.5 CORTICAL SCR EW 3.5X22 FDA Start: 03-29-2022 ORIF, ankle 4.0 CANCELLOUS S CREW 4.0X18 FDA Start: 03-29-2022 ORIF, ankle 4.0 CANCELLOUS S CREW 4.0X18 FDA Start: 03-29-2022 ORIF, ankle 8HOLE THIRD TUBU LAR PLATE FDA Start: 03-29-2022 ORIF, ankle 3.5 CORTICAL SCR EW 3.5X12 FDA Start: 03-29-2022 ORIF, ankle 3.5 CORTICAL SCR EW 3.5X12 FDA Start: 03-29-2022 ORIF, ankle 3.5 CORTICAL SCR EW 3.5X12 FDA Start: 03-29-2022 ORIF, ankle 3.5 CORTICAL SCR EW 3.5X22 FDA Start: 03-29-2022 ORIF, ankle 4.0 CANCELLOUS S CREW 4.0X18 FDA Start: 03-29-2022 ORIF, ankle 4.0 CANCELLOUS S CREW 4.0X18 FDA Start: 03-29-2022 ORIF, ankle 8HOLE THIRD TUBU LAR PLATE FDA Start: 03-29-2022 ORIF, ankle 3.5 CORTICAL SCR EW 3.5X12 FDA Start: 03-29-2022 ORIF, ankle 3.5 CORTICAL SCR EW 3.5X12 FDA Start: 03-29-2022 ORIF, ankle 3.5 CORTICAL SCR EW 3.5X12 FDA Start: 03-29-2022 ORIF, ankle 3.5 CORTICAL SCR EW 3.5X22 FDA Start: 03-29-2022 ORIF, ankle 4.0 CANCELLOUS S CREW 4.0X18 FDA Start: 03-29-2022 ORIF, ankle 4.0 CANCELLOUS S CREW 4.0X18 FDA Start: 03-29-2022 ORIF, ankle 8HOLE THIRD TUBU LAR PLATE FDA Start: 03-29-2022 ORIF, ankle 3.5 CORTICAL SCR EW 3.5X12 FDA Start: 03-29-2022 ORIF, ankle 3.5 CORTICAL SCR EW 3.5X12 FDA Start: 03-29-2022 ORIF, ankle 3.5 CORTICAL SCR EW 3.5X12 FDA Start: 03-29-2022 ORIF, ankle 3.5 CORTICAL SCR EW 3.5X22 FDA Start: 03-29-2022 ORIF, ankle 4.0 CANCELLOUS S CREW 4.0X18 FDA Start: 03-29-2022 ORIF, ankle 4.0 CANCELLOUS S CREW 4.0X18 FDA Start: 03-29-2022 ORIF, ankle 8HOLE THIRD TUBU LAR PLATE FDA Start: 03-29-2022 Goals Date Patient Goal Desired Activity /State Functional Status Date Assessment Result Facility 12-05-2023 Functional Status Independent [facility] Mental Status Date Assessment Result Facility 12-05-2023 Mental Status Orientation Oriented x 4 [facility] 10-05-2022 Cognitive function Level Of Cons ciousness Awake;Alert;Appropriate;Follow s Commands [facility] Work Phone: 03-29-2022 Cognitive function Voice/Name [facility] Work Phone: 05-17-2021 Cognitive function Level Of Cons ciousness Awake;Alert;Appropriate;Follow s Commands [facility] Work Phone: Clinical Notes 06-27-2022 to 05-17-2024 Note Date & Type Note Facility 05-17-2024 Note Discharge Instructio ns Discharge Summary [address] [address] [id number] 05/17/2024 Patient: ROCIO TREADWELL Sex: Male : 2000 Age: 23y Thank you for visiting [facility]. You have been evaluated today by [facility] M.D. for the following condition(s): Principal Diagnosis Influenza type A with pharyngitis. INSTRUCTIONS Off work for 2 days (through 05/19/24). Do not work for two days. Warnings: GENERAL WARNINGS: Return or contact your physician immediately if your condition worsens or changes unexpectedly, if not improving as expected, or if other problems arise. OTC Medications: Take acetaminophen (Tylenol), ibuprofen (such as Advil, Motrin or Nuprin) and naproxen (such as Aleve, Naprosyn or Anaprox) according to label instructions. Available over the counter. Follow-up with: Amy Pink DNP, COTTON TIER, CIGARETTE AND FILTER CHIEF INSPECTOR-C, [facility], [facility], Phone: [phone], [address] [facility] [address], [place] [address]. Follow up in three days if not better. Patient Signature 1 of 3 Discharge Instructions Facility Laundry Assistant Date/Time General Instructions with ExitWriter [address] [address] [id number] 05/17/2024 Patient: ROCIO TREADWELL Sex: Male : 2000 Age: 23y Thank you for visiting [facility]. You have been evaluated today by [facility] M.D[facility] for the following condition(s): Principal Diagnosis Influenza type A with pharyngitis. INSTRUCTIONS Off work for 2 days (through 05/19/24). Do not work for two days. Warnings: GENERAL WARNINGS: Return or contact your physician immediately if your condition worsens or changes unexpectedly, if not improving as expected, or if other problems arise. OTC Medications: Take acetaminophen (Tylenol), ibuprofen (such as Advil, Motrin or Nuprin) and naproxen (such as Aleve, Naprosyn or Anaprox) according to label instructions. Available over the counter. Follow-up with: Amy Pink, GUILLERMO, COTTON TIER, CIGARETTE AND FILTER CHIEF INSPECTOR-C, [facility], Phone: [phone], [address] [facility] [address], [place] [address]. Follow up in three days if not better. Activities Restrictions [place] [address] [place] [address] [id number] 05/17/2024 Patient: ROCIO TREADWELL Sex: Male : 2000 Age: 23y 2 of 3 Discharge Instructions You have been given the following instructions regarding activity, work, and/or school. Off work for 2 days (through 05/19/24). Do not work for two days. Facility Laundry Assistant 3 of 3 [facility] 12-06-2023 Hospital Discharge instructions Patient Education 12/05/2023 22:27:11 Smoking Cessation [...] find a support program: Free national quitline 441-QSIX-FSK (124-804-3138) [facility] quit-smoking programs [employer] 907-986-2674 [employer] 961-535-8423 Support at home is important too. Family and friends can offer praise and reassurance. If the smoker in your life finds it hard to quit, encourage them to keep trying. Try tcmh-crf-rvnalll medicine Nicotine replacement therapy may make it [...] Clearing the Air from the [employer] [place] at smokefree.gov/sites/default/file s/pdf/chklaxcz-svn-kio-accessibl e.pdf. 6631-0564 [employer]. [address] [place] [address], [place] [address]. All rights reserved. This information is not intended as a substitute for professional medical care. Always follow your healthcare professional's instructions. Follow Up Care 12/05/2023 20:30:31 With:Call Physician Referral Address:Unknown When:2-[facility] Note Discharge Instructions Thank you for allowing [place] to assist you with your healthcare needs. [...] find a support program: Free national quitline 509-QVCA-NHQ (832-084-5559) [facility] quit-smoking programs [employer] 921-501-5064 [employer] 207-595-5595 Support at home is important too. Family and friends can offer praise and reassurance. If the smoker in your life finds it hard to quit, encourage them to keep trying. Try vdkg-ens-jqwkkwv medicine Nicotine replacement therapy may make it [...] Clearing the Air from the [employer] [place] at smokefree.gov/sites/default/file s/pdf/nchadwlf-mwn-ufw-accessibl e.pdf. 2729-6318 [employer]. [address] [place] [address], [place] [address]. All rights reserved. This information is not intended as a substitute for professional medical care. Always follow your healthcare professional's instructions. Additional Information VACCINATE! IT SAVES LIVES! Members of the community who have not yet received the COVID-19 vaccine and would like to receive it can visit one of [facility] vaccine clinics. There are many vaccine clinic locations within the [facility]. For locations and available times, please visit www.gettheshot.coronavirus.[place]. gov/. It is important to note that some COVID mobile vaccine clinics are held outdoors and may be canceled in rainy or stormy conditions. To learn more about pediatric vaccinations (ages 5-11), we invite you to visit the [facility] webpage. https://www.[employer].org/p ages/7736-Olstu-Ccwbewehgri-Freq xxuxrj-Wekzd-Nxbzfjjyo.html To learn more about the COVID-19 vaccine, we invite you to visit the CDC website for a list of frequently asked questions. https://www.cdc.gov/coronavirus/ 2019-ncov/vaccines/faq.html [facility] Patient Portal Access Instructions: Stay connected with your healthcare team and access your personal medical information anytime with the [employer] Patient Portal. If you would like a full copy of your medical records please contact the [facility] Medical Records Department Saturday through Saturday between 8a.m. and 4:30p.m. Please follow the directions below to access the portal: 1.Access the email account you provided upon registration to the hospital.2.Look for an invitation email from [facility].3.Open the email and access the invitation link: Accept Invitation to [facility]4.Fill in the required whitlock to create your account. Sign into [email or web address] with your username and password that you [...] you will allow to register on the [employer] Patient Portal for access to your information. You can also access the [employer] Patient Portal on the [employer] shelli. Simply click on Health Records under Health Data and then click on the [employer] logo. HOW TO SAFELY DISPOSE OF PRESCRIPTION [...] Call your local pharmacy or go to http://AppHero.Ondax/8I7Mt9o to find one close to you.3.Make use of household items: Use cat litter or old coffee grounds to dispose medications if other options are not available. Mix your drugs with these household products, seal them in an airtight container and throw it into the garbage. Call [facility]: [phone] to be sure your drugs can be [...] aware that I should contact my doctor. Patient/Laundry Assistant Signature: Date/Time: Relationship to Patient: Witness Name/Signature: Date/Time: [facility] 12-05-2023 Note ORIGINAL EXAMINATION: TWO XRAY VIEWS [...] the resident findings and interpretation. Interpreted by: Ean Temple MD Preliminary Report By: [place] Electronically signed By Ean Temple MD Dictated Date: 12/05/2023 9:28:18 PM Prelim Date: 12/05/2023 9:31:33 PM Sign Date: 12/05/2023 9:59:10 PM Ordering Provider: VALERIA SHAW [facility] 10-30-2022 History of Present illness Narrative Patient is here for drain tube removal. S/P Right Hydrocelectomy on Saturday. He states he is still having a lot of drainage. [facility] Work Phone: 10-16-2022 Note PROCEDURE DETAILS Preoperative Diagnosis: Hydrocele, unspecified, N43.3 Postoperative Diagnosis: Hydrocele, unspecified, N43.3 Surgeon: Micky Aleman Resident/Fellow/Other Cushion Mat Maker: None of these were associated with this case Procedure: 1. R HYDROLECTOMY Anesthesia: No anesthesiologist associated with this case Estimated Blood Loss: 0 Findings: see op note Specimens(s) Collected: yes, Operative Report: Code: SOUTH Description: Umer hydrocele Anesthetic: General. Pre-Op Diagnosis: Right hydrocele. [...] We then irrigated the wound again. A [place] drain was placed. The incision was then closed in three layers. The patient tolerated the procedure well. There were no complications. follow up saturday for drain tube removal Attestation: Note Completion: Attending AttestationI performed the procedure without a resident Electronic Signatures: Micky Aleman) (Signed 16-Oct-2022 10:00) Authored: Post-Operative Note, Chart Review, Note Completion Last Updated: 16-Oct-2022 10:00 by Micky Aleman) [facility] 10-16-2022 Note History & Physical R eviewed: [...] Completion Last Updated: 16-Oct-2022 07:38 by Micky Alemna) [facility] 06-27-2022 Discharge summary Note Date/Time June 27, 2022 7:30pm [facility] Medical Records Department [address] [place] [address] Emergency Department Summary 06/27/22 MR#: [id number] Acct: [id number] Name: ROCIO TREADWELL Rep #:[id number] : 2000 21 From: Edgar Richards MD PCP: Care Physician,No Primary Status :PRE ER Location: ED HPI HPI - URI History of Present Illness Chief Complaint: Cough Detail of Chief Complaint: Productive cough yellow-colored sputum Informant: patient and spouse/S.O. Onset/Context/Timing Onset: Days (10 days) Context: Sudden Onset Timing: Continuous and Waxes and wanes Quality: Cough productive of yellow-colored sputum Location: Respiratory Current Severity: Mild Maximum Severity: Moderate Worsened by: Not Worsened By Swallowing, Eating Solids or Drinking Liquids Relieved by: Not Relieved By Tylenol or NSAIDs Associated Symptoms Associated Symptoms: Positive for Productive Cough; Negative for Nasal Congestion, Headache, Sinus Pressure, Myalgias, Nausea, Vomiting, Diarrhea, Shortness of Breath, Chest Pain, Nonproductive cough or Hemoptysis Narrative Narrative: Patient is a 21-year-old male who smokes 1/2 pack/day and presents with cough that started 10 days ago. He has a cough that is now productive of yellow-colored sputum. He presents from work. He is covered with fine dust particles. He states he does wear a respirator at work. He denies fever or chills. Denies headache, visual, ocular auditory symptoms. Nuys neck pain or neck stiffness. Denies change in voice. Denies sore throat. He denies chest discomfort. He denies nausea, vomiting or diarrhea. He denies myalgias or arthralgias. He denies skin lesion. He has had no ill tach to his knowledge. Prior similar symptoms: No Recent Illness/Hospitalization: No ROS ROS ED Constitutional Constitutional ED: Denies chills, fever(s), subjective, sweats or weight loss Eyes Eyes: Denies blurry vision, change in vision or diplopia ENT ENT ED: Denies ear pain, rhinorrhea or sore throat Cardiovascular Cardiovascular: Denies chest pain, orthopnea, palpitations or paroxysmal nocturnal dyspnea Respiratory/Chest Respiratory/Chest: Reports cough and sputum; Denies dyspnea, dyspnea on exertion, orthopnea or paroxysmal nocturnal dyspnea Gastrointestinal Gastrointestinal: Denies abdominal pain, diarrhea, nausea or vomiting Musculoskeletal Musculoskeletal: Denies arthralgias or myalgias Neurologic Neurologic: Denies headache(s) Hematologic/Lymphatic Hematologic/Lymphatic: Denies easy bleeding or easy bruising PFSH PFSH Medical History Back pain Closed fracture of right distal fibula Injury of head and neck Smoker Home Medications acetaminophen 500 mg capsule 1,000 mg PO Q6H PRN Pain 03/27/22 [History Last Taken Unknown] ibuprofen 400 mg tablet 400 mg PO Q8H PRN Pain 03/27/22 [History Last Taken Unknown] oxycodone-acetaminophen 5 mg-325 mg tablet (Percocet) 1 tab PO Q4H PRN pain 1 week #20 tabs 03/29/22 [Rx Last Taken Unknown] doxycycline monohydrate 100 mg capsule 100 mg PO BID #10 CAPSULES 06/27/22 [Rx Last Taken Unknown] Allergy/AdvReac Type Severity Reaction Status Date / Time No Known Allergies Allergy Verified 06/27/22 19:17 Social History (Updated 06/27/22 @ 19:[address] Edgar Richards MD) household members: significant other Smoking Status: Current every day smoker tobacco type: cigarettes substance use type: does not use EXAM Physical Exam Const Vital Signs: 06/27/22 19:15 Temperature 99.4 F H Temperature Source Temporal Pulse Rate 77 Respiratory Rate 18 Blood Pressure 118/52 L Blood Pressure Mean 74 Pulse Ox 100 Oxygen Delivery Method Room Air Positive well nourished and well developed General Appearance ED: well developed and NAD; Negative for cyanotic, diaphoretic or pallor HEENT Reports moist mucous membranes normocephalic and atraumatic Face and Sinus: Negative for sinus tenderness Throat: posterior oropharynx normal Eyes PERRL and EOMs intact bilaterally General Eye ED: Negative for pale conjunctiva or scleral icterus Neck no lymphadenopathy, supple, no meningeal signs and no JVD Resp normal respiratory effort and clear to auscultation bilaterally Cardio S1 normal heart sound, S2 normal heart sound and no murmurs Rate: regular rate Rhythm: regular rhythm GI non-tender, non-distended and no masses Palpation: soft Extremity normal to inspection and full ROM General Extremety ED: Negative for cyanosis General Extremity: Negative for cyanosis Neuro oriented x3 and CN's II-XII intact bilaterally Sensorium / Orientation: alert Psych mental status grossly normal Skin General Skin Exam: Negative for jaundice or pallor Lesions: no lesions Rashes: no rashes MDM MDM MDM Narrative Medical decision making narrative: Patient's history and physical consistent with bronchitis. Since patient's vital signs are unremarkable he is not febrile or hypoxic and auscultatory exam of the lungs is clear imaging was not obtained. Blood work is not indicated. Since he now has colored sputum will treat with antibiotics. He was informed that since he is a smoker he may have a cough up to 4 weeks. He also was informed that is in his best interest to quit smoking. History & Record Review Additional record(s) reviewed:: Prior outpatient record (For distal fibular fracture) and Prior ED visit (For minor symptoms and dental abscess) Discharge Plan Triage Chief Complaint: Cough ED Provider: Edgar Richards Dx/Rx/DC Orders Clinical Impression: Purulent bronchitis, Tobacco use Prescriptions: New doxycycline monohydrate 100 mg capsule 100 mg PO BID Qty: 10 0RF No Action ibuprofen 400 mg Tablet 400 mg PO Q8H PRN (Reason: Pain) acetaminophen 500 mg Capsule 1,000 mg PO Q6H PRN (Reason: Pain) oxycodone-acetaminophen [Percocet] 5-325 mg tablet 1 tab PO Q4H MDD 6 PRN (Reason: pain) 7 Days Qty: 20 0RF Primary Care Provider: Care Physician,No Primary Referrals: Regina Spangler MD [Med Staff - Pan Dumper] - 1 Week if not improving Care Physician,No Primary [Primary Care Provider] - Disposition Disposition: Home, Self Care What to do if you have Problems For any increased pain, shortness of breath, bleeding, nausea or vomiting, chestpain, or any unexpected problems, contact your Primary Care Provider. Call [facility] ([phone]) or report to the closest Emergency Room. Call 911 if necessary. 06/27/221932 <Electronically signed by Edgar Richards MD> Cosigner Signature (if applicable): CC: No Primary Care Physician ~ Signed [facility] Work Phone: Discharge summary Author Dr. Jonas [facility] July 01, 2022 7:17am Note Date/Time July 01, 2022 7:1 7am [facility] Medical Records Department [address] [place] [address] Emergency Department Summary 07/01/22 MR#: [id number] Acct: [id number] Name: ROCIO TREADWELL Rep #:[id number] : 2000 21 From: Chelsi Silva PCP: Care Physician,No Primary Status :REG ER Location: ED HPI History of Present Illness Chief Complaint: Male Pain/Injury Informant: patient Narrative Narrative: Patient is a 21-year-old male with history of right hydrocele presenting with worsening right testicular swelling and pain. States has been's worse over the past week. He is a sharp pain in his right testicle when he urinates. Denies any dysuria or hematuria. States about a year ago he was evaluated in the ER for hematuria and testicular swelling and was told he had fluid that likely needed to be drained. He notes he never followed up. He is not currently having any hematuria. Denies any other complaints at this time. Denies any penile discharge or rash. States he wears boxers. PFSH PFSH Medical History Back pain Closed fracture of right distal fibula Injury of head and neck Smoker Allergy/AdvReac Type Severity Reaction Status Date / Time No Known Allergies Allergy Verified 06/27/22 19:17 Social History household members: significant other Smoking Status: Current every day smoker tobacco type: cigarettes substance use type: does not use ROS ROS ED Constitutional Constitutional ED: Denies chills or fever(s) Gastrointestinal Gastrointestinal: Denies abdominal pain, nausea or vomiting Genitourinary Genitourinary ED: Reports other Details: right testicular swelling and pain ; Denies dysuria or hematuria Musculoskeletal Musculoskeletal: Denies arthralgias or myalgias Neurologic Neurologic: Denies headache(s) or weakness EXAM Physical Exam Const Vital Signs: 07/01/22 02:54 07/01/22 02:56 07/01/22 05:36 Temperature 98.2 F 98.2 F Temperature Source Oral Oral Pulse Rate 95 95 Respiratory Rate 18 18 16 Blood Pressure 128/74 H 128/74 H Blood Pressure Mean 92 92 Pulse Ox 97 997 Oxygen Delivery Method Room Air Room Air Positive well nourished and well developed General Appearance ED: well developed and NAD HEENT Reports moist mucous membranes normocephalic and atraumatic Resp normal respiratory effort and clear to auscultation bilaterally Cardio regular rate GI non-tender and non-distended Narrative: Normal circumcised penis. No rash or discharge appreciated. Nontender. Patient has significant right testicular swelling. There is no overlying erythema. No cellulitic changes. Normal cremasteric reflexes bilateral. It isdifficult to fully evaluate the right testicle secondary to the associated edema. Extremity normal to inspection General Extremety ED: Negative for edema General Extremity: Negative for edema Psych mental status grossly normal Skin Lesions: no lesions Rashes: no rashes MDM MDM MDM Narrative Medical decision making narrative: Patient evaluated for atraumatic right testicular pain and swelling. Patient does have significant edema. Ultrasound was obtained which shows a large hydrocele with greater size than ultrasound a year ago. Urinalysis is normal. Patient will be given follow-up information with urology. Counseled importance of keeping it. Discussed using NSAIDs, ice and jockstrap/high riding underwear to help with his symptoms in the meantime. He verbalizes agreement understanding with this plan. Discharged home in stable condition. Differential includes hydrocele, testicular torsion and epididymitis Lab Data Labs: Laboratory Results - last 24 hr 07/01/22 03:20 Urine Color Yellow Urine Clarity Clear Urine pH 7.0 Ur Specific Wallace 1.010 Urine Protein Negative Urine Glucose (UA) Normal Urine Ketones Negative Urine Occult Blood Negative Urine Nitrite Negative Urine Bilirubin Negative Urine Urobilinogen Normal Ur Leukocyte Esterase Negative Urine RBC 0 SEEN Urine WBC 0 SEEN Ur Squamous Epith Cells 0 SEEN Urine Bacteria 0 SEEN Urine Mucus 0 SEEN Radiography Diagnostic Testing: Clinical Impression(s) from Imaging Studies Testicular Ultrasound 07/01/22 04:24 IMPRESSION: Very large hydrocele, greater in size on the previous study of 06/06. No findings of testicular torsion or acute epididymitis. Electronically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
[2024-10-29 21:38] VITALS: BP 123/76; PULSE 72; RESP 18; TEMP 36.8; O2SAT 98
== END 2024-10-29 21:40 | disposition home or self-care (01) ==
PROVIDERS: Emergency Provider Emergency Medicine; Referring Provider Emergency Medicine; Visit Provider Emergency Medicine
DX: S46.911A Strain of unspecified muscle, fascia and tendon at shoulder and upper arm level, right arm, initial encounter (principal); X58.XXXA Exposure to other specified factors, initial encounter; Y92.89 Other specified places as the place of occurrence of the external cause; Y99.0 Civilian activity done for income or pay; F17.210 Nicotine dependence, cigarettes, uncomplicated
CPT/HCPCS: 73030; 99282